=== PATIENT | male | born 1935 ===

== ENCOUNTER 2017-07-15 20:43 | Inpatient (IN) | payer MEDICAID ==
[2017-07-15] MEDS ORDERED: Albuterol 0.083% Inhal Sol (2.5 mg/3 mL) UD INH STA (21:11)
--- NOTE | 2017-07-15 21:13 | C.PDOC ---
Chief Complaint (Nursing): Chest Pain Past Medical History Vital Signs: Last Vital Signs Temp 98 F 07/15/17 20:57 Pulse 60 07/15/17 20:57 Resp 18 07/15/17 20:57 BP 142/62 07/15/17 20:57 Pulse Ox 94 L 07/15/17 20:57 - Medical History PMH: Arthritis, Dementia, HTN, Hypothyroidism - Social History Hx Alcohol Use: No Hx Substance Use: No ED Course And Treatment O2 Sat by Pulse Oximetry: 94 Disposition - Disposition
--- NOTE | 2017-07-15 21:16 | C.PDOC ---
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 Pain is described as pleuritic, not associated with exertion, or shortness of breath. 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 Upon arrival to ED, daughter reports patient is complaining of continuous pain since 09:00 this morning. All other Hx is limited due to dementia Chief Complaint (Nursing): Chest Pain History Per: Family History/Exam Limitations: clinical condition Onset/Duration Of Symptoms: Hrs Current Symptoms Are (Timing): Still Present Severity: Moderate Past Medical History Reviewed: Historical Data, Nursing Documentation, Vital Signs Vital Signs: Last Vital Signs Temp 97.9 F 07/15/17 23:15 Pulse 77 07/16/17 00:31 Resp 20 07/15/17 23:15 BP 140/66 07/16/17 00:31 Pulse Ox 98 07/15/17 23:15 - Medical History PMH: Arthritis, Dementia, HTN, Hypothyroidism Surgical History: No Surg Hx Family History: States: No Known Family Hx - Social History Hx Alcohol Use: No Hx Substance Use: No Review Of Systems Review Of Systems: ROS cannot be obtained secondary to pt's inabilty to answer questions. Constitutional: Negative for: Fever Cardiovascular: Positive for: Chest Pain Respiratory: Negative for: Cough, Shortness of Breath Physical Exam - Physical Exam Appears: Non-toxic, No Acute Distress Skin: Warm, Dry, No Rash Head: Normacephalic Eye(s): bilateral: PERRL Nose: Normal Oral Mucosa: Moist Lips: Normal Appearing Neck: Normal ROM Cardiovascular: Rhythm Regular, No Murmur Respiratory: Decreased Breath Sounds (diminished B/L air movement), No Accessory Muscle Use, Wheezing (diffuse, expiratory B/L) Gastrointestinal/Abdominal: Soft, No Tenderness Extremity: Normal ROM, No Deformity, No Swelling Neurological/Psych: Other (Alert and oriented to person and place) ED Course And Treatment - Laboratory Results Result Diagrams: 07/15/17 21:34 07/15/17 21:34 ECG: Interpreted By Me, Viewed By Me ECG Rhythm: Sinus Rhythm ECG Interpretation: No Acute Changes Interpretation Of ECG: Left anterior hemiblock and LVH with no acute ST/T wave changes or ectopy. Rate From EC O2 Sat by Pulse Oximetry: 94 (RA) Pulse Ox Interpretation: Abnormal Medical Decision Making Medical Decision Making: Impression Chest pain and asthma. Patients symptoms are likely non-cardiac, will do baseline workup treatment for asthma and re-evaluate. Plan: * EKG * BNP, CMP, Trop I * CBC, D-Dimer * Chest X-Ray * Albuterol, Solumedrol * Peak flow, nebulizer * Reassess and Disposition 2199: Patient states chest pain has now resolved, and he is breathing better. Re-examination shows residual end expiratory wheeze. 2215: Labs reviewed, patient with elevated BUN, BNP and D-Dimer. Patient presents with chest pain which is most likely pulmonary in etiology. Due to renal insufficiency of unknown duration, elevated BNP suggestive of CHF, elevated DDimer of unkown significance, plan for admission. Given renal insufficiency, patient might require VQ scan tomorrow. Case discussed with Dr. Norwood and patient to be admitted under him for chest pain, renal insufficiency. Disposition - Disposition Disposition: HOSPITALIZED Disposition Time: 22:20 Condition: STABLE - Clinical Impression Clinical Impression: Chest pain, Renal insufficiency - Scribe Statement The provider has reviewed the documentation as recorded by the Scribe (Mahnaz Davidson) All medical record entries made by the Scribe were at my direction and personally dictated by me. I have reviewed the chart and agree that the record accurately reflects my personal performance of the history, physical exam, medical decision making, and the department course for this patient. I have also personally directed, reviewed, and agree with the discharge instructions and disposition.
[2017-07-15] MEDS ORDERED: Albuterol 0.083% Inhal Sol (2.5 mg/3 mL) UD ONE (21:21)
[2017-07-15 21:38] LABS: BASO # 0.1 K/uL (0.0-0.2); BASO % 1.2 % (0.0-2.0); EOS # 1.4 K/uL (0.0-0.7); EOS % 14.8 % (0.0-4.0); HEMOGLOBIN 12.9 g/dL (12.0-18.0); LYMPH # 2.7 K/uL (1.0-4.3); LYMPH % 27.9 % (20.0-40.0); MEAN CELL VOLUME 99.1 fL (80.0-94.0); MEAN CORPUSCULAR HEMOGLOBIN 33.5 pg (27.0-31.0); MEAN CORPUSCULAR HGB CONC 33.8 g/dL (33.0-37.0); MEAN PLATELET VOLUME 9.8 fL (7.2-11.7); MONO # 0.8 K/uL (0.0-0.8); MONO % 8.1 % (0.0-10.0); NEUT # 4.6 K/uL (1.8-7.0); NRBC % 0.1 % (0.0-2.0); RBC 3.85 Mil/uL (4.40-5.90); RED CELL DISTRIBUTION WIDTH 14.6 % (11.5-14.5); WHITE BLOOD COUNT 9.6 K/uL (4.8-10.8)
[2017-07-15 21:50] LABS: ALB/GLOB RATIO 0.8 (1.0-2.1); ALBUMIN 3.7 g/dL (3.5-5.0); ALT/SGPT 32 U/L (21-72); AST/SGOT 37 U/L (17-59); BLOOD UREA NITROGEN 34 mg/dL (9-20); CALCIUM 8.7 mg/dl (8.6-10.4); GFR AFRICAN-AMERICAN 25; GFR NON-AFRICAN AMERICAN 21
[2017-07-15 22:02] LABS: B-TYPE NATRIURETIC PEPTIDE 1710 pg/mL (0-900)
[2017-07-16] MEDS: Albuterol-Ipratrop 3 mg / 0.5 (3 ml) UD INH SCH ×4 (01:08→19:38)
[2017-07-16] MEDS ORDERED: Naproxen 275 mg Tab PO PRN (01:36)
[2017-07-16] MEDS: Levothyroxine 25 MCG TAB PO SCH (05:44)
[2017-07-16] MEDS: MethylPREDNISolone 40 mg Vial IV SCH ×3 (05:44→21:56)
--- NOTE | 2017-07-16 07:56 | RAD ---
Chest x-ray single frontal view History: Shortness breath. Comparison: None available Findings: Mild to moderate venous congestion. Patchy increased marking noted at the left lung base. Top normal heart size. Degenerative changes in the spine and shoulders. Impression: Mild to moderate venous congestion. Patchy increased marking noted at the left lung base. Top normal heart size.
[2017-07-16 08:04] LABS: CK-MB 0.58 ng/mL (0.0-3.38); TROPONIN I 0.015 ng/mL (0.00-0.120)
[2017-07-16] MEDS: Fluticasone-Salmeterol 250-50mcg Diskus INH SCH ×3 (08:04→19:38)
[2017-07-16] MEDS: Pantoprazole 40 mg EC Tab PO SCH (10:33)
--- NOTE | 2017-07-16 12:10 | NM ---
COMPARISON: 07/16/2017 TECHNIQUE: 13.5 MCi technetium 99-m Xe-133 Gas. 3.8 MCI technetium 99-m MAA administered intravenously. FINDINGS: VENTILATION COMPONENT: Normal. PERFUSION COMPONENT: Normal. IMPRESSION: Normal ventilation perfusion scan for pulmonary embolism.
[2017-07-16 13:00] LABS: SQUAMOUS EPITHIAL < 1 /hpf (0-5); URINE BILIRUBIN NEGATIVE (NEGATIVE); URINE BLOOD NEGATIVE (NEGATIVE); URINE CLARITY Clear (Clear); URINE COLOR Yellow (YELLOW); URINE GLUCOSE (UA) NORMAL (Normal); URINE LEUKOCYTE ESTERASE NEG Leu/uL (Negative); URINE PROTEIN 1+ mg/dL (NEGATIVE); URINE UROBILINOGEN NORMAL mg/dL (0.2-1.0)
[2017-07-16 14:14] LABS: CREATININE, RANDOM URINE 269.1 mg/dL
[2017-07-16 14:18] LABS: CK-MB 0.73 ng/mL (0.0-3.38)
--- NOTE | 2017-07-16 15:24 | US ---
PROCEDURE: Ultrasound of the Kidneys HISTORY: CKD COMPARISON: None available. TECHNIQUE: Grayscale imaging was performed. FINDINGS: RIGHT KIDNEY: Measures: 7.9 cm. Small in size with diffuse increased cortical echogenicity and cortical thinning. No stone, solid mass lesion or hydronephrosis visualized. There are two small cysts in the interpolar region, the larger measures 10 mm. LEFT KIDNEY: Measures: 9.9 cm. Normal in size, contour and echogenicity. No stone, solid mass lesion or hydronephrosis visualized. There is a 10 mm simple cyst in the upper pole. OTHER FINDINGS: None. IMPRESSION: 1. Small atrophic right kidney with evidence of renal parenchymal disease. Two simple cysts in the interpolar region of the right kidney, the larger measures 10 mm. 2. 10 mm simple cyst in the upper pole of the left kidney. 3. No hydronephrosis or nephrolithiasis.
--- NOTE | 2017-07-16 15:25 | US ---
PROCEDURE: Ultrasound of the Bladder HISTORY: plesae check PVR COMPARISON: None available. TECHNIQUE: Sonographic evaluation of the bladder was performed. FINDINGS: The urinary bladder is partially distended and grossly normal in appearance without wall thickening or intraluminal debris. No calculus or gross mass lesion. No free fluid in pelvis. Bilateral ureteral jets are not visualized on color flow imaging. Prevoid Volume: 126 cc. Post void residual: 42 cc. IMPRESSION: Moderate postvoid residual.
--- NOTE | 2017-07-16 17:09 | CP.PCM.CON ---
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 Hypertension control with meds as ordered. Patient on ACEI/ARB as losartan Monitor Input/Output, daily weights and renal function with basic metabolic panel agree with diuretics pt and family advised to abstain from nsaids including meloxicam start flomax 0.4 mg/day Check urine analysis, spot protein/creatinine and albumin/creatinine ratio, renal sonogram. . Check for 25-OH vitamin D, iPTH, phosphorus level Dose meds/antibiotics for reduced GFR. Avoid fleets enema/magnesium based laxatives. Avoid nephrotoxins/NSAIDs/ iodinated contrast (unless needed emergently) Glycemic control Further work up/management as per primary team Thanks for allowing me to participate in care of your patient. Will follow patient with you. Please call if any Qs Dr Yuan Platt Office: [phone] Chief Complaint; SOB better HPI: Pt is a 81 M with hx of hypertension (years) , CKD as known to grand daughters with low kidney function and 1 kidney smaller presented with complaints of chest pain and SOB, being managed for CHF. also seen for CHESTER hence renal consulted Denies OTC/herbal meds but admits to NSAIDs as meloxicam No recent iodinated contrast exposure. No obvious episodes of low BP. ROS: Cardiovascular: No chest pain now. Pulmonary: improved shortness of breath Gastrointestinal: denies abdominal pain No nausea. No vomiting. Genitourinary: No pain while urinating. Denies blood in urine. does reports to need to strain when urinating All other negative Physical Examination: General Appearance: Comfortable, in no acute respiratory distress, co-operative . Vitals reviewed and noted as below Head; Atraumatic, normocephalic ENT: no ulcers no thrush. Tongue is midline. Oropharynx: no rash or ulcers. EYES: Pupils are equal, round and reactive to light accommodation. Eye muscles and extraocular movement intact. Sclera is anicteric. Neck; supple no lymphadenopathy, no thyromegaly or bruit Lungs: Normal respiratory rate/effort. Breath sounds bilateral equal and has basal crackles Heart: Normal rate. s1s2 normal. No rub or gallop. Extremities: no edema. No varicose veins Neurological: Patient is alert, awake and oriented to person, place and time. No focal deficit. Strength bilateral appropriate and equal Skin: Warm and dry. Normal turgor. No rash. Palpitation: Normal elasticity for age Abdomen: Abdomen is soft. Bowel sounds +. There is no abdominal tenderness, no guarding/rigidity no organomegaly Psych: limited insight and normal affect/mood MSK: no joint tenderness or swelling. Digits and nails normal, no deformity : kidney or bladder not palpable Labs/imaging reviewed. Past medical history, past surgical history, family history, social history, allergy reviewed and noted as below Family hx: no hx of CKD. Rest non-contributory Past Patient History - Past Social History Smoking Status: Never Smoked - CARDIAC Hx Hypertension: Yes - NEUROLOGICAL Hx Dementia: Yes - ENDOCRINE/METABOLIC Hx Hypothyroidism: Yes - MUSCULOSKELETAL/RHEUMATOLOGICAL Hx Arthritis: Yes - PSYCHIATRIC Hx Substance Use: No - SURGICAL HISTORY Hx Surgeries: No Meds Allergies/Adverse Reactions: Allergies Allergy/AdvReac Type Severity Reaction Status Date / Time No Known Allergies Allergy Verified 07/15/17 21:03 - Medications Medications: Current Medications Albuterol/Ipratropium (Duoneb 3 Mg/0.5 Mg (3 Ml) Ud) 3 ml INH RQ6 [facility] Last Admin: 07/16/17 13:11 Dose: 3 ml Allopurinol (Zyloprim) 100 mg PO DAILY [facility] Last Admin: 07/16/17 10:32 Dose: 100 mg Furosemide (Lasix) 20 mg IVP DAILY [facility] Last Admin: 07/16/17 10:33 Dose: 20 mg Heparin Sodium (Porcine) (Heparin) 5,000 units SC Q8 [facility] Last Admin: 07/16/17 13:42 Dose: 5,000 units Hydralazine HCl (Apresoline) 50 mg PO TID [facility] Last Admin: 07/16/17 13:42 Dose: 50 mg Levothyroxine Sodium (Synthroid) 25 mcg PO DAILY@0630 [facility] Last Admin: 07/16/17 05:44 Dose: 25 mcg Losartan Potassium (Cozaar) 25 mg PO DAILY [facility] Last Admin: 04/23/18 10:32 Dose: 25 mg Methylprednisolone (Solu-Medrol) 40 mg IV Q8 [facility] Last Admin: 07/16/17 13:42 Dose: 40 mg Metoprolol Tartrate (Lopressor) 50 mg PO Q12H [facility] Last Admin: 07/16/17 10:33 Dose: 50 mg Pantoprazole Sodium (Protonix Ec Tab) 40 mg PO DAILY [facility] Last Admin: 07/16/17 10:33 Dose: 40 mg Pneumococcal Polyvalent Vaccine (Pneumovax 23 Vaccine) 0.5 ml IM .ONCE ONE Stop: 07/17/17 14:01 Fluticasone/Salmeterol (Advair Diskus 250/50) 1 puff INH RQ12 [facility] Last Admin: 07/16/17 08:04 Dose: Not Given Results - Vital Signs Recent Vital Signs: Last Vital Signs Temp 97.2 F L 07/16/17 15:46 Pulse 84 07/16/17 15:46 Resp 20 07/16/17 15:46 BP 171/63 H 07/16/17 15:46 Pulse Ox 97 07/16/17 15:46 - Labs Result Diagrams: 07/15/17 21:34 07/15/17 21:34 Labs: Laboratory Results - last 24 hr 07/15/17 07/15/17 07/15/17 21:34 21:34 21:34 WBC 9.6 RBC 3.85 L Hgb 12.9 Hct 38.2 MCV 99.1 H MCH 33.5 H MCHC 33.8 RDW 14.6 H Plt Count 227 MPV 9.8 Neut % (Auto) 48.0 L Lymph % (Auto) 27.9 Mccone % (Auto) 8.1 Eos % (Auto) 14.8 H Baso % (Auto) 1.2 Neut # (Auto) 4.6 Lymph # (Auto) 2.7 Mccone # (Auto) 0.8 Eos # (Auto) 1.4 H Baso # (Auto) 0.1 D-Dimer, Quantitative 863 H Sodium 136 Potassium 4.7 Chloride 99 Carbon Dioxide 25 Anion Gap 16 BUN 34 H Creatinine 2.9 H Est GFR ( Amer) 25 Est GFR (Non-Af Amer) 21 Random Glucose 98 Calcium 8.7 Total Bilirubin 0.9 AST 37 ALT 32 Alkaline Phosphatase 198 H Total Creatine Kinase CK-MB (Mass) Troponin I < 0.0120 NT-Pro-B Natriuret Pep 1710 H Total Protein 8.2 Albumin 3.7 Globulin 4.4 H Albumin/Globulin Ratio 0.8 L Urine Color Urine Clarity Urine pH Ur Specific [place] Urine Protein Urine Glucose (UA) Urine Ketones Urine Blood Urine Nitrate Urine Bilirubin Urine Urobilinogen Ur Leukocyte Esterase Urine WBC (Auto) Urine RBC (Auto) Ur Squamous Epith Cells Ur Random Creatinine U Random Total Protein Urine Microalbumin 07/16/17 07/16/17 07/16/17 06:40 12:48 13:36 WBC RBC Hgb Hct MCV MCH MCHC RDW Plt Count MPV Neut % (Auto) Lymph % (Auto) Mccone % (Auto) Eos % (Auto) Baso % (Auto) Neut # (Auto) Lymph # (Auto) Mccone # (Auto) Eos # (Auto) Baso # (Auto) D-Dimer, Quantitative Sodium Potassium Chloride Carbon Dioxide Anion Gap BUN Creatinine Est GFR ( Amer) Est GFR (Non-Af Amer) Random Glucose Calcium Total Bilirubin AST ALT Alkaline Phosphatase Total Creatine Kinase 63 CK-MB (Mass) 0.58 Troponin I 0.0150 NT-Pro-B Natriuret Pep Total Protein Albumin Globulin Albumin/Globulin Ratio Urine Color Yellow Urine Clarity Clear Urine pH 5.0 Ur Specific [place] 1.023 Urine Protein 1+ H Urine Glucose (UA) Normal Urine Ketones Negative Urine Blood Negative Urine Nitrate Negative Urine Bilirubin Negative Urine Urobilinogen Normal Ur Leukocyte Esterase Neg Urine WBC (Auto) 1 Urine RBC (Auto) 1 Ur Squamous Epith Cells < 1 Ur Random Creatinine 269.1 U Random Total Protein 43.0 H Urine Microalbumin 07/16/17 07/16/17 13:36 13:43 WBC RBC Hgb Hct MCV MCH MCHC RDW Plt Count MPV Neut % (Auto) Lymph % (Auto) Mccone % (Auto) Eos % (Auto) Baso % (Auto) Neut # (Auto) Lymph # (Auto) Mccone # (Auto) Eos # (Auto) Baso # (Auto) D-Dimer, Quantitative Sodium Potassium Chloride Carbon Dioxide Anion Gap BUN Creatinine Est GFR ( Amer) Est GFR (Non-Af Amer) Random Glucose Calcium Total Bilirubin AST ALT Alkaline Phosphatase Total Creatine Kinase 62 CK-MB (Mass) 0.73 Troponin I < 0.0120 NT-Pro-B Natriuret Pep Total Protein Albumin Globulin Albumin/Globulin Ratio Urine Color Urine Clarity Urine pH Ur Specific [place] Urine Protein Urine Glucose (UA) Urine Ketones Urine Blood Urine Nitrate Urine Bilirubin Urine Urobilinogen Ur Leukocyte Esterase Urine WBC (Auto) Urine RBC (Auto) Ur Squamous Epith Cells Ur Random Creatinine U Random Total Protein Urine Microalbumin 179.2 H
--- NOTE | 2017-07-16 18:17 | CARD ---
APPROVED REPORT EKG Measurement Heart [id number] <Conclusion> Normal sinus rhythm Possible Left atrial enlargement Left anterior fascicular block Left ventricular hypertrophy Abnormal ECG
--- NOTE | 2017-07-16 18:35 | CP.PCM.HP ---
Past Patient History - Past Social History Smoking Status: Never Smoked - CARDIAC Hx Hypertension: Yes - NEUROLOGICAL Hx Dementia: Yes - ENDOCRINE/METABOLIC Hx Hypothyroidism: Yes - MUSCULOSKELETAL/RHEUMATOLOGICAL Hx Arthritis: Yes - PSYCHIATRIC Hx Substance Use: No - SURGICAL HISTORY Hx Surgeries: No Meds Allergies/Adverse Reactions: Allergies Allergy/AdvReac Type Severity Reaction Status Date / Time No Known Allergies Allergy Verified 07/15/17 21:03 Results - Vital Signs Recent Vital Signs: Last Vital Signs Temp 97.2 F L 07/16/17 15:46 Pulse 84 07/16/17 15:46 Resp 20 07/16/17 15:46 BP 171/63 H 07/16/17 15:46 Pulse Ox 97 07/16/17 15:46 - Labs Result Diagrams: 07/15/17 21:34 07/15/17 21:34 Labs: Laboratory Results - last 24 hr 07/15/17 07/15/17 07/15/17 21:34 21:34 21:34 WBC 9.6 RBC 3.85 L Hgb 12.9 Hct 38.2 MCV 99.1 H MCH 33.5 H MCHC 33.8 RDW 14.6 H Plt Count 227 MPV 9.8 Neut % (Auto) 48.0 L Lymph % (Auto) 27.9 Scott % (Auto) 8.1 Eos % (Auto) 14.8 H Baso % (Auto) 1.2 Neut # (Auto) 4.6 Lymph # (Auto) 2.7 Scott # (Auto) 0.8 Eos # (Auto) 1.4 H Baso # (Auto) 0.1 D-Dimer, Quantitative 863 H Sodium 136 Potassium 4.7 Chloride 99 Carbon Dioxide 25 Anion Gap 16 BUN 34 H Creatinine 2.9 H Est GFR ( Amer) 25 Est GFR (Non-Af Amer) 21 Random Glucose 98 Calcium 8.7 Total Bilirubin 0.9 AST 37 ALT 32 Alkaline Phosphatase 198 H Total Creatine Kinase CK-MB (Mass) Troponin I < 0.0120 NT-Pro-B Natriuret Pep 1710 H Total Protein 8.2 Albumin 3.7 Globulin 4.4 H Albumin/Globulin Ratio 0.8 L Urine Color Urine Clarity Urine pH Ur Specific [place] Urine Protein Urine Glucose (UA) Urine Ketones Urine Blood Urine Nitrate Urine Bilirubin Urine Urobilinogen Ur Leukocyte Esterase Urine WBC (Auto) Urine RBC (Auto) Ur Squamous Epith Cells Ur Random Creatinine U Random Total Protein Urine Microalbumin 07/16/17 07/16/17 07/16/17 06:40 12:48 13:36 WBC RBC Hgb Hct MCV MCH MCHC RDW Plt Count MPV Neut % (Auto) Lymph % (Auto) Scott % (Auto) Eos % (Auto) Baso % (Auto) Neut # (Auto) Lymph # (Auto) Scott # (Auto) Eos # (Auto) Baso # (Auto) D-Dimer, Quantitative Sodium Potassium Chloride Carbon Dioxide Anion Gap BUN Creatinine Est GFR ( Amer) Est GFR (Non-Af Amer) Random Glucose Calcium Total Bilirubin AST ALT Alkaline Phosphatase Total Creatine Kinase 63 CK-MB (Mass) 0.58 Troponin I 0.0150 NT-Pro-B Natriuret Pep Total Protein Albumin Globulin Albumin/Globulin Ratio Urine Color Yellow Urine Clarity Clear Urine pH 5.0 Ur Specific [place] 1.023 Urine Protein 1+ H Urine Glucose (UA) Normal Urine Ketones Negative Urine Blood Negative Urine Nitrate Negative Urine Bilirubin Negative Urine Urobilinogen Normal Ur Leukocyte Esterase Neg Urine WBC (Auto) 1 Urine RBC (Auto) 1 Ur Squamous Epith Cells < 1 Ur Random Creatinine 269.1 U Random Total Protein 43.0 H Urine Microalbumin 07/16/17 07/16/17 13:36 13:43 WBC RBC Hgb Hct MCV MCH MCHC RDW Plt Count MPV Neut % (Auto) Lymph % (Auto) Scott % (Auto) Eos % (Auto) Baso % (Auto) Neut # (Auto) Lymph # (Auto) Scott # (Auto) Eos # (Auto) Baso # (Auto) D-Dimer, Quantitative Sodium Potassium Chloride Carbon Dioxide Anion Gap BUN Creatinine Est GFR ( Amer) Est GFR (Non-Af Amer) Random Glucose Calcium Total Bilirubin AST ALT Alkaline Phosphatase Total Creatine Kinase 62 CK-MB (Mass) 0.73 Troponin I < 0.0120 NT-Pro-B Natriuret Pep Total Protein Albumin Globulin Albumin/Globulin Ratio Urine Color Urine Clarity Urine pH Ur Specific [place] Urine Protein Urine Glucose (UA) Urine Ketones Urine Blood Urine Nitrate Urine Bilirubin Urine Urobilinogen Ur Leukocyte Esterase Urine WBC (Auto) Urine RBC (Auto) Ur Squamous Epith Cells Ur Random Creatinine U Random Total Protein Urine Microalbumin 179.2 H
[2017-07-16 21:48] LABS: CK-MB 1.12 ng/mL (0.0-3.38)
[2017-07-17] MEDS: Albuterol-Ipratrop 3 mg / 0.5 (3 ml) UD INH SCH ×4 (01:13→19:48)
[2017-07-17] MEDS: MethylPREDNISolone 40 mg Vial IV SCH ×3 (06:35→21:13)
[2017-07-17] MEDS: Levothyroxine 25 MCG TAB PO SCH (06:35)
[2017-07-17 07:10] LABS: BASO % 0.1 % (0.0-2.0); HEMOGLOBIN 12.5 g/dL (12.0-18.0); LYMPH # 1.1 K/uL (1.0-4.3); LYMPH % 6.7 % (20.0-40.0); MEAN CELL VOLUME 98.6 fL (80.0-94.0); MEAN CORPUSCULAR HEMOGLOBIN 33.1 pg (27.0-31.0); MEAN CORPUSCULAR HGB CONC 33.5 g/dL (33.0-37.0); MEAN PLATELET VOLUME 9.7 fL (7.2-11.7); MONO # 0.4 K/uL (0.0-0.8); MONO % 2.3 % (0.0-10.0); NEUT # 14.6 K/uL (1.8-7.0); NEUT % 90.9 % (50.0-75.0); PLATELET COUNT 262 K/uL (130-400); RBC 3.78 Mil/uL (4.40-5.90); RED CELL DISTRIBUTION WIDTH 14.4 % (11.5-14.5); WHITE BLOOD COUNT 16.1 K/uL (4.8-10.8)
[2017-07-17] MEDS: Fluticasone-Salmeterol 250-50mcg Diskus INH SCH ×2 (07:21→19:48)
[2017-07-17 07:31] LABS: CALCIUM 8.4 mg/dl (8.6-10.4); URIC ACID 7.9 mg/dL (3.5-8.5)
[2017-07-17 08:56] LABS: BANDS 1 % (0-2); LYMPHOCYTE 9 % (20-40); MONOCYTE 1 % (0-10); NEUTROPHIL 89 % (50-75); PLATELET ESTIMATE NORMAL (NORMAL); TOTAL CELLS COUNTED 100
[2017-07-17 08:57] LABS: ANISOCYTOSIS SLIGHT; HYPOCHROMIC SLIGHT; POIKILOCYTOSIS SLIGHT
[2017-07-17 08:58] LABS: LARGE PLATELETS PRESENT; TARGET CELLS SLIGHT
[2017-07-17] MEDS: Pantoprazole 40 mg EC Tab PO SCH (10:10)
[2017-07-17] MEDS ORDERED: Ergocalciferol 50,000 Intl Units Cap PO SCH (11:00)
[2017-07-17] MEDS ORDERED: Pneumococcal 23-Valent Vaccine IM ONE (14:00)
--- NOTE | 2017-07-17 17:07 | CP.PCM.PN ---
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 Hypertension control with meds as ordered. Patient on ACEI/ARB as losartan, will hold due to CHESTER Monitor Input/Output, daily weights and renal function with basic metabolic panel diuretics changed to oral pt and family advised to abstain from nsaids including meloxicam start flomax 0.4 mg/day started weekly Vit D supplements x 8 weeks Dose meds/antibiotics for reduced GFR. Avoid fleets enema/magnesium based laxatives. Avoid nephrotoxins/NSAIDs/ iodinated contrast (unless needed emergently) Glycemic control Further work up/management as per primary team Thanks for allowing me to participate in care of your patient. Will follow patient with you. Please call if any Qs. d/w team Dr Yuan Platt Office: [phone] Chief Complaint; SOB better HPI: Pt is a 81 M with hx of hypertension (years) , CKD as known to grand daughters with low kidney function and 1 kidney smaller presented with complaints of chest pain and SOB, being managed for CHF. also seen for CHESTER hence renal consulted Denies OTC/herbal meds but admits to NSAIDs as meloxicam No recent iodinated contrast exposure. No obvious episodes of low BP. ROS: Cardiovascular: No chest pain now. Pulmonary: denies shortness of breath Gastrointestinal: denies abdominal pain No nausea. No vomiting. Genitourinary: No pain while urinating. Denies blood in urine. does reports to need to strain when urinating All other negative Physical Examination: General Appearance: Comfortable, in no acute respiratory distress, co-operative . Vitals reviewed and noted as below Head; Atraumatic, normocephalic ENT: no ulcers no thrush. Tongue is midline. Oropharynx: no rash or ulcers. EYES: Pupils are equal, round and reactive to light accommodation. Eye muscles and extraocular movement intact. Sclera is anicteric. Neck; supple no lymphadenopathy, no thyromegaly or bruit Lungs: Normal respiratory rate/effort. Breath sounds bilateral equal and clear now Heart: Normal rate. s1s2 normal. No rub or gallop. Extremities: no edema. No varicose veins Neurological: Patient is alert, awake and oriented to person, place and time. No focal deficit. Strength bilateral appropriate and equal Skin: Warm and dry. Normal turgor. No rash. Palpitation: Normal elasticity for age Abdomen: Abdomen is soft. Bowel sounds +. There is no abdominal tenderness, no guarding/rigidity no organomegaly Psych: limited insight and normal affect/mood MSK: no joint tenderness or swelling. Digits and nails normal, no deformity : kidney or bladder not palpable Labs/imaging reviewed. Past medical history, past surgical history, family history, social history, allergy reviewed and noted as below Family hx: no hx of CKD. Rest non-contributory Objective - Vital Signs/Intake and Output Vital Signs (last 24 hours): Temp Pulse Resp BP Pulse Ox 97.5 F L 90 20 152/64 H 96 07/17/17 15:00 07/17/17 15:47 07/17/17 15:00 07/17/17 15:00 07/17/17 15:00 Intake and Output: 07/17/17 07/17/17 06:59 18:59 Intake Total 440 Output Total 300 Balance 140 - Medications Medications: Current Medications Albuterol/Ipratropium (Duoneb 3 Mg/0.5 Mg (3 Ml) Ud) 3 ml INH RQ6 [facility] Last Admin: 07/17/17 13:05 Dose: 3 ml Allopurinol (Zyloprim) 100 mg PO DAILY [facility] Last Admin: 07/17/17 10:10 Dose: 100 mg Ergocalciferol (Drisdol 50,000 Intl Units Cap) 1 cap PO Q7D [facility] Last Admin: 07/17/17 13:46 Dose: 1 cap Furosemide (Lasix) 20 mg PO DAILY [facility] Heparin Sodium (Porcine) (Heparin) 5,000 units SC Q8 [facility] Last Admin: 07/17/17 13:46 Dose: 5,000 units Hydralazine HCl (Apresoline) 50 mg PO TID [facility] Last Admin: 07/17/17 13:46 Dose: 50 mg Levothyroxine Sodium (Synthroid) 25 mcg PO DAILY@0630 [facility] Last Admin: 07/17/17 06:35 Dose: 25 mcg Methylprednisolone (Solu-Medrol) 40 mg IV Q8 [facility] Last Admin: 07/17/17 13:46 Dose: 40 mg Metoprolol Tartrate (Lopressor) 50 mg PO Q12H [facility] Last Admin: 07/17/17 10:10 Dose: 50 mg Pantoprazole Sodium (Protonix Ec Tab) 40 mg PO DAILY [facility] Last Admin: 07/17/17 10:10 Dose: 40 mg Fluticasone/Salmeterol (Advair Diskus 250/50) 1 puff INH RQ12 [facility] Last Admin: 07/17/17 07:21 Dose: 1 puff Tamsulosin HCl (Flomax) 0.4 mg PO DAILY [facility] Last Admin: 07/17/17 10:10 Dose: 0.4 mg - Labs Labs: 07/17/17 07:00 07/17/17 07:00
--- NOTE | 2017-07-17 20:28 | CP.PCM.PN ---
Subjective - Date & Time of Evaluation Date of Evaluation: 07/17/17 Time of Evaluation: 20:28 Objective - Vital Signs/Intake and Output Vital Signs (last 24 hours): Temp Pulse Resp BP Pulse Ox 97.5 F L 90 20 152/64 H 96 07/17/17 15:00 07/17/17 15:47 07/17/17 15:00 07/17/17 15:00 07/17/17 15:00 - Medications Medications: Current Medications Albuterol/Ipratropium (Duoneb 3 Mg/0.5 Mg (3 Ml) Ud) 3 ml INH RQ6 [facility] Last Admin: 07/17/17 19:48 Dose: 3 ml Allopurinol (Zyloprim) 100 mg PO DAILY [facility] Last Admin: 07/17/17 10:10 Dose: 100 mg Ergocalciferol (Drisdol 50,000 Intl Units Cap) 1 cap PO Q7D [facility] Last Admin: 07/17/17 13:46 Dose: 1 cap Furosemide (Lasix) 20 mg PO DAILY [facility] Heparin Sodium (Porcine) (Heparin) 5,000 units SC Q8 [facility] Last Admin: 07/17/17 13:46 Dose: 5,000 units Hydralazine HCl (Apresoline) 50 mg PO TID [facility] Last Admin: 07/17/17 17:17 Dose: 50 mg Levothyroxine Sodium (Synthroid) 25 mcg PO DAILY@0630 [facility] Last Admin: 07/17/17 06:35 Dose: 25 mcg Methylprednisolone (Solu-Medrol) 40 mg IV Q8 [facility] Last Admin: 07/17/17 13:46 Dose: 40 mg Metoprolol Tartrate (Lopressor) 50 mg PO Q12H [facility] Last Admin: 07/17/17 10:10 Dose: 50 mg Pantoprazole Sodium (Protonix Ec Tab) 40 mg PO DAILY [facility] Last Admin: 07/17/17 10:10 Dose: 40 mg Fluticasone/Salmeterol (Advair Diskus 250/50) 1 puff INH RQ12 [facility] Last Admin: 07/17/17 19:48 Dose: 1 puff Tamsulosin HCl (Flomax) 0.4 mg PO DAILY [facility] Last Admin: 07/17/17 10:10 Dose: 0.4 mg - Labs Labs: 07/17/17 07:00 07/17/17 07:00
--- NOTE | 2017-07-17 20:29 | CP.PCM.CON ---
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 Pain is described as pleuritic, not associated with exertion, or shortness of breath. As per daughter, patient was seen by his optical dispenser six days ago, and started on different medications due to blood pressure, no additional intervention was initiated. Upon arrival to ED, daughter reports patient is complaining of continuous pain since 09:00 this morning of the admission. All other Hx is limited due to dementia Chief Complaint (Nursing): Chest Pain History Per: Family - Medical History PMH: Arthritis, Dementia, HTN, Hypothyroidism Surgical History: No Surg Hx Family History: States: No Known Family Hx - Social History Hx Alcohol Use: No Hx Substance Use: No Review Of Systems Review Of Systems: ROS cannot be obtained secondary to pt's inabilty to answer questions. Constitutional: Negative for: Fever Cardiovascular: Positive for: Chest Pain Respiratory: Negative for: Cough, Shortness of Breath Physical Exam - Physical Exam Appears: Non-toxic, No Acute Distress Skin: Warm, Dry, No Rash Head: Normacephalic Eye(s): bilateral: PERRL Nose: Normal Oral Mucosa: Moist Lips: Normal Appearing Neck: Normal ROM Cardiovascular: Rhythm Regular, No Murmur Respiratory: Decreased Breath Sounds (diminished B/L air movement), No Accessory Muscle Use, Wheezing (diffuse, expiratory B/L) Gastrointestinal/Abdominal: Soft, No Tenderness Extremity: Normal ROM, No Deformity, No Swelling Neurological/Psych: Other (Alert and oriented to person and place) Past Patient History - Past Social History Smoking Status: Never Smoked - CARDIAC Hx Hypertension: Yes - NEUROLOGICAL Hx Dementia: Yes - ENDOCRINE/METABOLIC Hx Hypothyroidism: Yes - MUSCULOSKELETAL/RHEUMATOLOGICAL Hx Arthritis: Yes - PSYCHIATRIC Hx Substance Use: No - SURGICAL HISTORY Hx Surgeries: No Meds Allergies/Adverse Reactions: Allergies Allergy/AdvReac Type Severity Reaction Status Date / Time No Known Allergies Allergy Verified 07/15/17 21:03 - Medications Medications: Current Medications Albuterol/Ipratropium (Duoneb 3 Mg/0.5 Mg (3 Ml) Ud) 3 ml INH RQ6 [facility] Last Admin: 07/17/17 19:48 Dose: 3 ml Allopurinol (Zyloprim) 100 mg PO DAILY [facility] Last Admin: 07/17/17 10:10 Dose: 100 mg Ergocalciferol (Drisdol 50,000 Intl Units Cap) 1 cap PO Q7D [facility] Last Admin: 07/17/17 13:46 Dose: 1 cap Furosemide (Lasix) 20 mg PO DAILY [facility] Heparin Sodium (Porcine) (Heparin) 5,000 units SC Q8 [facility] Last Admin: 07/17/17 13:46 Dose: 5,000 units Hydralazine HCl (Apresoline) 50 mg PO TID [facility] Last Admin: 07/17/17 17:17 Dose: 50 mg Levothyroxine Sodium (Synthroid) 25 mcg PO DAILY@0630 [facility] Last Admin: 07/17/17 06:35 Dose: 25 mcg Methylprednisolone (Solu-Medrol) 40 mg IV Q8 [facility] Last Admin: 07/17/17 13:46 Dose: 40 mg Metoprolol Tartrate (Lopressor) 50 mg PO Q12H [facility] Last Admin: 07/17/17 10:10 Dose: 50 mg Pantoprazole Sodium (Protonix Ec Tab) 40 mg PO DAILY [facility] Last Admin: 07/17/17 10:10 Dose: 40 mg Fluticasone/Salmeterol (Advair Diskus 250/50) 1 puff INH RQ12 [facility] Last Admin: 07/17/17 19:48 Dose: 1 puff Tamsulosin HCl (Flomax) 0.4 mg PO DAILY [facility] Last Admin: 07/17/17 10:10 Dose: 0.4 mg Results - Vital Signs Recent Vital Signs: Last Vital Signs Temp 97.5 F L 07/17/17 15:00 Pulse 90 07/17/17 15:47 Resp 20 07/17/17 15:00 BP 152/64 H 07/17/17 15:00 Pulse Ox 96 07/17/17 15:00 - Labs Result Diagrams: 07/17/17 07:00 07/17/17 07:00 Labs: Laboratory Results - last 24 hr 07/16/17 07/17/17 07/17/17 21:16 07:00 07:00 WBC 16.1 H D RBC 3.78 L Hgb 12.5 Hct 37.3 MCV 98.6 H MCH 33.1 H MCHC 33.5 RDW 14.4 Plt Count 262 MPV 9.7 Neut % (Auto) 90.9 H Lymph % (Auto) 6.7 L [place] % (Auto) 2.3 Eos % (Auto) 0.0 Baso % (Auto) 0.1 Neut # (Auto) 14.6 H Lymph # (Auto) 1.1 [place] # (Auto) 0.4 Eos # (Auto) 0.0 Baso # (Auto) 0.0 Neutrophils % (Manual) 89 H Band Neutrophils % 1 Lymphocytes % (Manual) 9 L Monocytes % (Manual) 1 Platelet Estimate Normal Large Platelets Present Hypochromasia (manual) Slight Poikilocytosis (manual Slight Anisocytosis (manual) Slight Target Cells Slight Sodium 136 Potassium 4.8 Chloride 100 Carbon Dioxide 20 L Anion Gap 20 BUN 55 H Creatinine 3.6 H Est GFR ( Amer) 20 Est GFR (Non-Af Amer) 16 Random Glucose 159 H Uric Acid 7.9 Calcium 8.4 L Phosphorus 3.8 Total Creatine Kinase 66 CK-MB (Mass) 1.12 Troponin I < 0.0120 25-OH Vitamin D Total 07/17/17 07:00 WBC RBC Hgb Hct MCV MCH MCHC RDW Plt Count MPV Neut % (Auto) Lymph % (Auto) [place] % (Auto) Eos % (Auto) Baso % (Auto) Neut # (Auto) Lymph # (Auto) [place] # (Auto) Eos # (Auto) Baso # (Auto) Neutrophils % (Manual) Band Neutrophils % Lymphocytes % (Manual) Monocytes % (Manual) Platelet Estimate Large Platelets Hypochromasia (manual) Poikilocytosis (manual Anisocytosis (manual) Target Cells Sodium Potassium Chloride Carbon Dioxide Anion Gap BUN Creatinine Est GFR ( Amer) Est GFR (Non-Af Amer) Random Glucose Uric Acid Calcium Phosphorus Total Creatine Kinase CK-MB (Mass) Troponin I 25-OH Vitamin D Total 17.6 L Assessment & Plan - Assessment and Plan (Free Text) Assessment: Non Cardiac chest pain Trops negative Normal EF by ECHO HTN Hypothyroidism Dementia Medical management
--- NOTE | 2017-07-17 21:22 | CARD ---
APPROVED REPORT EXAM: Two-dimensional and M-mode echocardiogram with Doppler and color Doppler. Other Information Quality : GoodRhythm : INDICATION Chest Pain RISK FACTORS Hypertension 2D DIMENSIONS IVSd1.3 (0.7-1.1cm)LVDd5.0 (3.9-5.9cm) PWd1.0 (0.7-1.1cm)LVDs2.4 (2.5-4.0cm) FS (%) 51.4 %LVEF (%)82.5 (>50%) M-Mode DIMENSIONS RVDd1.42 (2.1-3.2cm)Left Atrium (MM)4.28 (2.5-4.0cm) IVSd1.15 (0.7-1.1cm)Aortic Root2.76 (2.2-3.7cm) LVDd5.34 (4.0-5.6cm)Aortic Cusp Exc.2.07 (1.5-2.0cm) PWd1.15 (0.7-1.1cm)FS (%) 51 % LVDs2.64 (2.0-3.8cm)LVEF (%)82 (>50%) Aortic Valve AI P 1/2 [id number] Mitral Valve MV E Hdzktztg86.8cm/sMV A Tmtxqjlm662.8cm/sE/A ratio0.7 TDI E/Lateral E'0.0E/Medial E'0.0 Tricuspid Valve TR Peak Kkpvysfj569dp/sTR Peak Gr.[id number] LEFT VENTRICLE The left ventricle is normal size. There is mild concentric left ventricular hypertrophy. The left ventricular function is normal. The left ventricular ejection fraction is within the normal range. 66% No regional wall motion abnormalities noted. The left ventricular diastolic function is normal. No left ventricle thrombus noted on this study. There is no ventricular septal defect visualized. There is no left ventricular aneurysm. There is no mass noted in the left ventricle. RIGHT VENTRICLE The right ventricle is normal size. There is normal right ventricular wall thickness. The right ventricular systolic function is normal. ATRIA The left atrium size is normal. The right atrium size is normal. The interatrial septum is intact with no evidence for an atrial septal defect. AORTIC VALVE The aortic valve is normal in structure and function. Mild aortic regurgitation is present. There is no aortic valvular stenosis. There is no aortic valvular vegetation. MITRAL VALVE The mitral valve is normal in structure and function. There is no evidence of mitral valve prolapse. There is no mitral valve stenosis. There is trace mitral valve regurgitation noted. TRICUSPID VALVE The tricuspid valve is normal in structure and function. There is mild tricuspid valve regurgitation noted. Estimated pulmonary artery systolic pressure is 53 mm Hg. There is no tricuspid valve prolapse or vegetation. There is no tricuspid valve stenosis. PULMONIC VALVE The pulmonary valve is normal in structure and function. There is no pulmonic valvular regurgitation. There is no pulmonic valvular stenosis. GREAT VESSELS The aortic root is normal in size. The ascending aorta is normal in size. The pulmonary artery is normal. The IVC is normal in size and collapses less than 50% with inspiration. PERICARDIAL EFFUSION The pericardium appears normal. There is no pleural effusion. <Conclusion> There is mild concentric left ventricular hypertrophy. The left ventricular function is normal. Mild aortic regurgitation is present. There is mild tricuspid valve regurgitation noted. Estimated pulmonary artery systolic pressure is 53 mm Hg.
[2017-07-18] MEDS: Albuterol-Ipratrop 3 mg / 0.5 (3 ml) UD INH SCH ×4 (01:15→19:28)
[2017-07-18] MEDS: Levothyroxine 25 MCG TAB PO SCH (06:07)
[2017-07-18] MEDS: MethylPREDNISolone 40 mg Vial IV SCH ×3 (06:07→21:17)
[2017-07-18] MEDS: Fluticasone-Salmeterol 250-50mcg Diskus INH SCH ×2 (07:27→19:28)
[2017-07-18 09:21] LABS: CALCIUM 8.7 mg/dl (8.6-10.4)
[2017-07-18] MEDS: Pantoprazole 40 mg EC Tab PO SCH (10:14)
--- NOTE | 2017-07-18 15:16 | CP.PCM.PN ---
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 Hypertension control with meds as ordered. Patient on ACEI/ARB as losartan, will hold due to CHESTER Monitor Input/Output, daily weights and renal function with basic metabolic panel diuretics changed to oral pt and family advised to abstain from nsaids including meloxicam start flomax 0.4 mg/day started weekly Vit D supplements x 8 weeks added sidum bicarb 650mg bid Dose meds/antibiotics for reduced GFR. Avoid fleets enema/magnesium based laxatives. Avoid nephrotoxins/NSAIDs/ iodinated contrast (unless needed emergently) Glycemic control Further work up/management as per primary team Thanks for allowing me to participate in care of your patient. Will follow patient with you. Please call if any Qs. d/w team Dr Yuan Platt Office: [phone] Chief Complaint; SOB better HPI: Pt is a 81 M with hx of hypertension (years) , CKD as known to grand daughters with low kidney function and 1 kidney smaller presented with complaints of chest pain and SOB, being managed for CHF. also seen for CHESTER hence renal consulted Denies OTC/herbal meds but admits to NSAIDs as meloxicam No recent iodinated contrast exposure. No obvious episodes of low BP. ROS: Cardiovascular: No chest pain now. Pulmonary: denies shortness of breath Gastrointestinal: denies abdominal pain No nausea. No vomiting. Genitourinary: No pain while urinating. Denies blood in urine. does reports to need to strain when urinating All other negative Physical Examination: General Appearance: Comfortable, in no acute respiratory distress, co-operative . Vitals reviewed and noted as below Head; Atraumatic, normocephalic ENT: no ulcers no thrush. Tongue is midline. Oropharynx: no rash or ulcers. EYES: Pupils are equal, round and reactive to light accommodation. Eye muscles and extraocular movement intact. Sclera is anicteric. Neck; supple no lymphadenopathy, no thyromegaly or bruit Lungs: Normal respiratory rate/effort. Breath sounds bilateral equal and clearer now Heart: Normal rate. s1s2 normal. No rub or gallop. Extremities: no edema. No varicose veins Neurological: Patient is alert, awake and oriented to person, place and time. No focal deficit. Strength bilateral appropriate and equal Skin: Warm and dry. Normal turgor. No rash. Palpitation: Normal elasticity for age Abdomen: Abdomen is soft. Bowel sounds +. There is no abdominal tenderness, no guarding/rigidity no organomegaly Psych: limited insight and normal affect/mood MSK: no joint tenderness or swelling. Digits and nails normal, no deformity : kidney or bladder not palpable Labs/imaging reviewed. Past medical history, past surgical history, family history, social history, allergy reviewed and noted as below Family hx: no hx of CKD. Rest non-contributory Objective - Vital Signs/Intake and Output Vital Signs (last 24 hours): Temp Pulse Resp BP Pulse Ox 97.4 F L 89 20 154/77 H 95 07/18/17 08:16 07/18/17 12:08 07/18/17 08:16 07/18/17 10:14 07/18/17 08:16 - Medications Medications: Current Medications Albuterol/Ipratropium (Duoneb 3 Mg/0.5 Mg (3 Ml) Ud) 3 ml INH RQ6 [facility] Last Admin: 07/18/17 13:04 Dose: 3 ml Allopurinol (Zyloprim) 100 mg PO DAILY [facility] Last Admin: 07/18/17 10:14 Dose: 100 mg Ergocalciferol (Drisdol 50,000 Intl Units Cap) 1 cap PO Q7D [facility] Last Admin: 07/17/17 13:46 Dose: 1 cap Furosemide (Lasix) 20 mg PO DAILY [facility] Last Admin: 07/18/17 10:14 Dose: 20 mg Heparin Sodium (Porcine) (Heparin) 5,000 units SC Q8 [facility] Last Admin: 07/18/17 14:22 Dose: 5,000 units Hydralazine HCl (Apresoline) 50 mg PO TID [facility] Last Admin: 07/18/17 14:22 Dose: 50 mg Levothyroxine Sodium (Synthroid) 25 mcg PO DAILY@0630 [facility] Last Admin: 07/18/17 06:07 Dose: 25 mcg Methylprednisolone (Solu-Medrol) 40 mg IV Q8 [facility] Last Admin: 07/18/17 14:22 Dose: 40 mg Metoprolol Tartrate (Lopressor) 50 mg PO Q12H [facility] Last Admin: 07/18/17 10:14 Dose: 50 mg Pantoprazole Sodium (Protonix Ec Tab) 40 mg PO DAILY [facility] Last Admin: 07/18/17 10:14 Dose: 40 mg Fluticasone/Salmeterol (Advair Diskus 250/50) 1 puff INH RQ12 [facility] Last Admin: 07/18/17 07:27 Dose: 1 puff Sodium Bicarbonate (Sodium Bicarbonate Tab) 650 mg PO BID [facility] Last Admin: 07/18/17 10:14 Dose: 650 mg Tamsulosin HCl (Flomax) 0.4 mg PO DAILY [facility] Last Admin: 07/18/17 10:14 Dose: 0.4 mg - Labs Labs: 07/17/17 07:00 07/18/17 09:01
--- NOTE | 2017-07-18 17:53 | CP.PCM.PN ---
Subjective - Date & Time of Evaluation Date of Evaluation: 07/18/17 Time of Evaluation: 17:53 Objective - Vital Signs/Intake and Output Vital Signs (last 24 hours): Temp Pulse Resp BP Pulse Ox 97.8 F 86 20 141/72 94 L 07/18/17 15:41 07/18/17 16:25 07/18/17 15:41 07/18/17 15:41 07/18/17 15:41 - Medications Medications: Current Medications Albuterol/Ipratropium (Duoneb 3 Mg/0.5 Mg (3 Ml) Ud) 3 ml INH RQ6 [facility] Last Admin: 07/18/17 13:04 Dose: 3 ml Allopurinol (Zyloprim) 100 mg PO DAILY [facility] Last Admin: 07/18/17 10:14 Dose: 100 mg Ergocalciferol (Drisdol 50,000 Intl Units Cap) 1 cap PO Q7D [facility] Last Admin: 07/17/17 13:46 Dose: 1 cap Furosemide (Lasix) 20 mg PO DAILY [facility] Last Admin: 07/18/17 10:14 Dose: 20 mg Heparin Sodium (Porcine) (Heparin) 5,000 units SC Q8 [facility] Last Admin: 07/18/17 14:22 Dose: 5,000 units Hydralazine HCl (Apresoline) 50 mg PO TID [facility] Last Admin: 07/18/17 17:27 Dose: 50 mg Levothyroxine Sodium (Synthroid) 25 mcg PO DAILY@0630 [facility] Last Admin: 07/18/17 06:07 Dose: 25 mcg Methylprednisolone (Solu-Medrol) 40 mg IV Q8 [facility] Last Admin: 07/18/17 14:22 Dose: 40 mg Metoprolol Tartrate (Lopressor) 50 mg PO Q12H [facility] Last Admin: 07/18/17 10:14 Dose: 50 mg Pantoprazole Sodium (Protonix Ec Tab) 40 mg PO DAILY [facility] Last Admin: 07/18/17 10:14 Dose: 40 mg Pneumococcal Polyvalent Vaccine (Pneumovax 23 Vaccine) 0.5 ml IM .ONCE ONE Stop: 07/19/17 10:01 Fluticasone/Salmeterol (Advair Diskus 250/50) 1 puff INH RQ12 [facility] Last Admin: 07/18/17 07:27 Dose: 1 puff Sodium Bicarbonate (Sodium Bicarbonate Tab) 650 mg PO BID [facility] Last Admin: 07/18/17 17:27 Dose: 650 mg Tamsulosin HCl (Flomax) 0.4 mg PO DAILY [facility] Last Admin: 07/18/17 10:14 Dose: 0.4 mg - Labs Labs: 07/17/17 07:00 07/18/17 09:01
--- NOTE | 2017-07-18 19:19 | CP.PCM.PN ---
<Costa Britt - Last Filed: 07/18/17 19:16> Subjective - Date & Time of Evaluation Date of Evaluation: 07/18/17 Time of Evaluation: 19:16 - Subjective Subjective: PGY-[address] Quintero's Cardiology service: Pt seen and examined at bedside. Nursing reports no acute events overnight. His daughter is present at bedside. He is oriented to person/place/time during the interview and in a lucid interval. Daughter states he has been ambulating well with no issues. Denies CP, SOB, nausea, vomiting, muscle cramping or weakness, diaphoresis. Objective - Vital Signs/Intake and Output Vital Signs (last 24 hours): Temp Pulse Resp BP Pulse Ox 97.8 F 86 20 141/72 94 L 07/18/17 15:41 07/18/17 16:25 07/18/17 15:41 07/18/17 15:41 07/18/17 15:41 - Medications Medications: Current Medications Albuterol/Ipratropium (Duoneb 3 Mg/0.5 Mg (3 Ml) Ud) 3 ml INH RQ6 [facility] Last Admin: 07/18/17 13:04 Dose: 3 ml Allopurinol (Zyloprim) 100 mg PO DAILY [facility] Last Admin: 07/18/17 10:14 Dose: 100 mg Ergocalciferol (Drisdol 50,000 Intl Units Cap) 1 cap PO Q7D [facility] Last Admin: 07/17/17 13:46 Dose: 1 cap Furosemide (Lasix) 20 mg PO DAILY [facility] Last Admin: 07/18/17 10:14 Dose: 20 mg Heparin Sodium (Porcine) (Heparin) 5,000 units SC Q8 [facility] Last Admin: 07/18/17 14:22 Dose: 5,000 units Hydralazine HCl (Apresoline) 50 mg PO TID [facility] Last Admin: 07/18/17 17:27 Dose: 50 mg Levothyroxine Sodium (Synthroid) 25 mcg PO DAILY@0630 [facility] Last Admin: 07/18/17 06:07 Dose: 25 mcg Methylprednisolone (Solu-Medrol) 40 mg IV Q8 [facility] Last Admin: 07/18/17 14:22 Dose: 40 mg Metoprolol Tartrate (Lopressor) 50 mg PO Q12H [facility] Last Admin: 07/18/17 10:14 Dose: 50 mg Pantoprazole Sodium (Protonix Ec Tab) 40 mg PO DAILY [facility] Last Admin: 07/18/17 10:14 Dose: 40 mg Pneumococcal Polyvalent Vaccine (Pneumovax 23 Vaccine) 0.5 ml IM .ONCE ONE Stop: 07/19/17 10:01 Fluticasone/Salmeterol (Advair Diskus 250/50) 1 puff INH RQ12 [facility] Last Admin: 07/18/17 07:27 Dose: 1 puff Sodium Bicarbonate (Sodium Bicarbonate Tab) 650 mg PO BID [facility] Last Admin: 07/18/17 17:27 Dose: 650 mg Tamsulosin HCl (Flomax) 0.4 mg PO DAILY [facility] Last Admin: 07/18/17 10:14 Dose: 0.4 mg - Labs Labs: 07/17/17 07:00 07/18/17 09:01 - Constitutional Appears: Non-toxic, Confused - Head Exam Head Exam: ATRAUMATIC, NORMAL INSPECTION - Eye Exam Eye Exam: PERRL - ENT Exam ENT Exam: Mucous Membranes Dry - Respiratory Exam Respiratory Exam: Clear to Ausculation Bilateral, NORMAL BREATHING PATTERN - Cardiovascular Exam Cardiovascular Exam: REGULAR RHYTHM, +S1, +S2 - GI/Abdominal Exam GI & Abdominal Exam: Soft, Normal Bowel Sounds - Extremities Exam Extremities Exam: Pedal Edema (1+ bilaterally). absent: Normal Inspection - Neurological Exam Neurological Exam: Alert, Awake. absent: Oriented x3 - Skin Skin Exam: Intact Assessment and Plan - Assessment and Plan (Free Text) Plan: Chest pain, resolved Etiology: non-cardiac ECHO (07/16/17): EF 82.5%, mild concentric LVH, mild aortic regurgitation, mild tricuspid regurgitation EKG (07/15/17): NSR, Lt anterior fascicular block. LVH Troponin neg x 3 HTN Systolic elevation over course; but better controlled recently ECHO c/w long-term HTN Lasix 20mg PO Daily Hydralazine 50mg PO TID Lopressor 50mg PO Q12H Flomax 0.4mg PO Daily Costa Britt PGY-2 D/w Dr. Quintero <Armando Quintero - Last Filed: 07/18/17 22:22> Objective - Vital Signs/Intake and Output Vital Signs (last 24 hours): Temp Pulse Resp BP Pulse Ox 97.8 F 86 20 141/72 94 L 07/18/17 15:41 07/18/17 16:25 07/18/17 15:41 07/18/17 15:41 07/18/17 15:41 - Medications Medications: Current Medications Albuterol/Ipratropium (Duoneb 3 Mg/0.5 Mg (3 Ml) Ud) 3 ml INH RQ6 [facility] Last Admin: 07/18/17 19:28 Dose: 3 ml Allopurinol (Zyloprim) 100 mg PO DAILY [facility] Last Admin: 07/18/17 10:14 Dose: 100 mg Ergocalciferol (Drisdol 50,000 Intl Units Cap) 1 cap PO Q7D [facility] Last Admin: 07/17/17 13:46 Dose: 1 cap Furosemide (Lasix) 20 mg PO DAILY [facility] Last Admin: 07/18/17 10:14 Dose: 20 mg Heparin Sodium (Porcine) (Heparin) 5,000 units SC Q8 [facility] Last Admin: 07/18/17 21:17 Dose: 5,000 units Hydralazine HCl (Apresoline) 50 mg PO TID [facility] Last Admin: 07/18/17 17:27 Dose: 50 mg Levothyroxine Sodium (Synthroid) 25 mcg PO DAILY@0630 [facility] Last Admin: 07/18/17 06:07 Dose: 25 mcg Methylprednisolone (Solu-Medrol) 40 mg IV Q8 [facility] Last Admin: 07/18/17 21:17 Dose: 40 mg Metoprolol Tartrate (Lopressor) 50 mg PO Q12H [facility] Last Admin: 07/18/17 21:18 Dose: 50 mg Pantoprazole Sodium (Protonix Ec Tab) 40 mg PO DAILY [facility] Last Admin: 07/18/17 10:14 Dose: 40 mg Pneumococcal Polyvalent Vaccine (Pneumovax 23 Vaccine) 0.5 ml IM .ONCE ONE Stop: 07/19/17 10:01 Fluticasone/Salmeterol (Advair Diskus 250/50) 1 puff INH RQ12 [facility] Last Admin: 07/18/17 19:28 Dose: 1 puff Sodium Bicarbonate (Sodium Bicarbonate Tab) 650 mg PO BID [facility] Last Admin: 07/18/17 17:27 Dose: 650 mg Tamsulosin HCl (Flomax) 0.4 mg PO DAILY [facility] Last Admin: 07/18/17 10:14 Dose: 0.4 mg - Labs Labs: 07/17/17 07:00 07/18/17 09:01 Assessment and Plan - Assessment and Plan (Free Text) Plan: Patient seen and evaluated personally by me Plan of care d/w the medical laboratory technologist and as documented
[2017-07-19] MEDS: Albuterol-Ipratrop 3 mg / 0.5 (3 ml) UD INH SCH ×3 (01:14→13:11)
[2017-07-19] MEDS: Levothyroxine 25 MCG TAB PO SCH (06:19)
[2017-07-19] MEDS: MethylPREDNISolone 40 mg Vial IV SCH ×2 (06:21→13:28)
[2017-07-19 06:48] LABS: CALCIUM 7.8 mg/dl (8.6-10.4)
[2017-07-19] MEDS: Fluticasone-Salmeterol 250-50mcg Diskus INH SCH (07:43)
[2017-07-19] MEDS ORDERED: Pneumococcal 23-Valent Vaccine IM ONE (10:00)
[2017-07-19] MEDS: Pantoprazole 40 mg EC Tab PO SCH (10:55)
--- NOTE | 2017-07-19 14:19 | CP.PCM.PN ---
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 Hypertension control with meds as ordered. Patient on ACEI/ARB as losartan, will hold due to CHESTER Monitor Input/Output, daily weights and renal function with basic metabolic panel diuretics changed to oral pt and family advised to abstain from nsaids including meloxicam start flomax 0.4 mg/day started weekly Vit D supplements x 8 weeks added sodium bicarb 650mg bid Dose meds/antibiotics for reduced GFR. Avoid fleets enema/magnesium based laxatives. Avoid nephrotoxins/NSAIDs/ iodinated contrast (unless needed emergently) Glycemic control Further work up/management as per primary team pt stable for d/c from renal perspective when planned. f/up in renal clinic 1 week Thanks for allowing me to participate in care of your patient. Will follow patient with you. Please call if any Qs. d/w team and family Dr Yuan Platt Office: [phone] Chief Complaint; SOB better HPI: Pt is a 81 M with hx of hypertension (years) , CKD as known to grand daughters with low kidney function and 1 kidney smaller presented with complaints of chest pain and SOB, being managed for CHF. also seen for CHESTER hence renal consulted Denies OTC/herbal meds but admits to NSAIDs as meloxicam No recent iodinated contrast exposure. No obvious episodes of low BP. ROS: Cardiovascular: No chest pain now. Pulmonary: denies shortness of breath Gastrointestinal: denies abdominal pain No nausea. No vomiting. Genitourinary: No pain while urinating. Denies blood in urine. does reports to need to strain when urinating All other negative Physical Examination: General Appearance: Comfortable, in no acute respiratory distress, co-operative . Vitals reviewed and noted as below Head; Atraumatic, normocephalic ENT: no ulcers no thrush. Tongue is midline. Oropharynx: no rash or ulcers. EYES: Pupils are equal, round and reactive to light accommodation. Eye muscles and extraocular movement intact. Sclera is anicteric. Neck; supple no lymphadenopathy, no thyromegaly or bruit Lungs: Normal respiratory rate/effort. Breath sounds bilateral equal and clearer now Heart: Normal rate. s1s2 normal. No rub or gallop. Extremities: no edema. No varicose veins Neurological: Patient is alert, awake and oriented to person, place and time. No focal deficit. Strength bilateral appropriate and equal Skin: Warm and dry. Normal turgor. No rash. Palpitation: Normal elasticity for age Abdomen: Abdomen is soft. Bowel sounds +. There is no abdominal tenderness, no guarding/rigidity no organomegaly Psych: limited insight and normal affect/mood MSK: no joint tenderness or swelling. Digits and nails normal, no deformity : kidney or bladder not palpable Labs/imaging reviewed. Past medical history, past surgical history, family history, social history, allergy reviewed and noted as below Family hx: no hx of CKD. Rest non-contributory Objective - Vital Signs/Intake and Output Vital Signs (last 24 hours): Temp Pulse Resp BP Pulse Ox 97.2 F L 79 18 136/76 97 07/19/17 07:30 07/19/17 07:30 07/19/17 07:30 07/19/17 10:54 07/19/17 07:30 Intake and Output: 07/19/17 07/19/17 06:59 18:59 Intake Total 240 480 Balance 240 480 - Medications Medications: Current Medications Albuterol/Ipratropium (Duoneb 3 Mg/0.5 Mg (3 Ml) Ud) 3 ml INH RQ6 [facility] Last Admin: 07/19/17 13:11 Dose: 3 ml Allopurinol (Zyloprim) 100 mg PO DAILY [facility] Last Admin: 07/19/17 10:54 Dose: 100 mg Ergocalciferol (Drisdol 50,000 Intl Units Cap) 1 cap PO Q7D [facility] Last Admin: 07/17/17 13:46 Dose: 1 cap Furosemide (Lasix) 20 mg PO DAILY [facility] Last Admin: 07/19/17 10:54 Dose: 20 mg Heparin Sodium (Porcine) (Heparin) 5,000 units SC Q8 [facility] Last Admin: 07/19/17 13:31 Dose: 5,000 units Hydralazine HCl (Apresoline) 50 mg PO TID [facility] Last Admin: 07/19/17 12:51 Dose: 50 mg Levothyroxine Sodium (Synthroid) 25 mcg PO DAILY@0630 [facility] Last Admin: 07/19/17 06:19 Dose: 25 mcg Methylprednisolone (Solu-Medrol) 40 mg IV Q8 [facility] Last Admin: 07/19/17 13:28 Dose: 40 mg Metoprolol Tartrate (Lopressor) 50 mg PO Q12H [facility] Last Admin: 07/19/17 12:51 Dose: 50 mg Pantoprazole Sodium (Protonix Ec Tab) 40 mg PO DAILY [facility] Last Admin: 07/19/17 10:55 Dose: 40 mg Fluticasone/Salmeterol (Advair Diskus 250/50) 1 puff INH RQ12 [facility] Last Admin: 07/19/17 07:43 Dose: 1 puff Sodium Bicarbonate (Sodium Bicarbonate Tab) 650 mg PO BID [facility] Last Admin: 07/19/17 10:54 Dose: 650 mg Tamsulosin HCl (Flomax) 0.4 mg PO DAILY [facility] Last Admin: 07/19/17 10:55 Dose: 0.4 mg - Labs Labs: 07/17/17 07:00 07/19/17 06:20
[2017-07-19 17:11] VITALS: BP 153/74; RESP 20; TEMP 97.6; O2SAT 96
--- NOTE | 2017-07-19 17:36 | CP.PCM.PN ---
Subjective - Date & Time of Evaluation Date of Evaluation: 07/19/17 Time of Evaluation: 11:10 - Subjective Subjective: Patient seen today, denei s any chewst pain, sob, abdominla pain, dysuria, flank pain, heamturia, N/V/D oob ambulating without sob bun/cr- improved seen by Dr. Platt today , cleared from renal stand point for discharge home and f /u with his office in 1-2 weeks Objective - Vital Signs/Intake and Output Vital Signs (last 24 hours): Temp Pulse Resp BP Pulse Ox 97.6 F 87 20 153/74 H 96 07/19/17 15:10 07/19/17 15:10 07/19/17 15:10 07/19/17 15:10 07/19/17 15:10 Intake and Output: 07/19/17 07/19/17 06:59 18:59 Intake Total 240 480 Balance 240 480 - Medications Medications: Current Medications Albuterol/Ipratropium (Duoneb 3 Mg/0.5 Mg (3 Ml) Ud) 3 ml INH RQ6 [facility] Last Admin: 07/19/17 13:11 Dose: 3 ml Allopurinol (Zyloprim) 100 mg PO DAILY [facility] Last Admin: 07/19/17 10:54 Dose: 100 mg Ergocalciferol (Drisdol 50,000 Intl Units Cap) 1 cap PO Q7D [facility] Last Admin: 07/17/17 13:46 Dose: 1 cap Furosemide (Lasix) 20 mg PO DAILY [facility] Last Admin: 07/19/17 10:54 Dose: 20 mg Heparin Sodium (Porcine) (Heparin) 5,000 units SC Q8 [facility] Last Admin: 07/19/17 13:31 Dose: 5,000 units Hydralazine HCl (Apresoline) 50 mg PO TID [facility] Last Admin: 07/19/17 15:34 Dose: 50 mg Levothyroxine Sodium (Synthroid) 25 mcg PO DAILY@0630 [facility] Last Admin: 07/19/17 06:19 Dose: 25 mcg Methylprednisolone (Solu-Medrol) 40 mg IV Q8 [facility] Last Admin: 07/19/17 13:28 Dose: 40 mg Metoprolol Tartrate (Lopressor) 50 mg PO Q12H [facility] Last Admin: 07/19/17 12:51 Dose: 50 mg Pantoprazole Sodium (Protonix Ec Tab) 40 mg PO DAILY [facility] Last Admin: 07/19/17 10:55 Dose: 40 mg Fluticasone/Salmeterol (Advair Diskus 250/50) 1 puff INH RQ12 [facility] Last Admin: 07/19/17 07:43 Dose: 1 puff Sodium Bicarbonate (Sodium Bicarbonate Tab) 650 mg PO BID [facility] Last Admin: 07/19/17 10:54 Dose: 650 mg Tamsulosin HCl (Flomax) 0.4 mg PO DAILY [facility] Last Admin: 07/19/17 10:55 Dose: 0.4 mg - Labs Labs: 07/17/17 07:00 07/19/17 06:20 Assessment and Plan - Assessment and Plan (Free Text) Assessment: A/P 81 YR OLD male with pmhx of Dementia, HTN, Hypothyroidism admitted with chest pain troponin x 3 - negative echo- EF 82.5%, mild concentric LVH, mild aortic regurgitation, mild tricuspid regurgitation EKG (07/15/17): NSR, Lt anterior fascicular block. LVH D/w Dr. Norwood, stable for discharge home today and f/u with PMD in 5 days
[2017-07-19 19:36] VITALS: PULSE 95
== END 2017-07-19 19:14 | disposition home or self-care (01) | DRG 544 ==
LOC: C.ER 20:43 → C.9E 22:23 → C.6T 22:45 → OBSVTOIN 07-18 15:06
PROVIDERS: ADMIT Internal Medicine Critical Care Medicine; ATTEND Internal Medicine Critical Care Medicine
DX: I13.0 Hypertensive heart and chronic kidney disease with heart failure and stage 1 through stage 4 chronic kidney disease, or unspecified chronic kidney disease (principal); N17.9 Acute kidney failure, unspecified; I50.9 Heart failure, unspecified; I35.1 Nonrheumatic aortic (valve) insufficiency; N18.4 Chronic kidney disease, stage 4 (severe); F03.90 Unspecified dementia, unspecified severity, without behavioral disturbance, psychotic disturbance, mood disturbance, and anxiety; I44.4 Left anterior fascicular block; J45.909 Unspecified asthma, uncomplicated; E03.9 Hypothyroidism, unspecified

== ENCOUNTER 2017-12-17 13:05 | Inpatient (IN) | payer MEDICARE, MEDICAID ==
[2017-12-17] MEDS ORDERED: Aspirin 325 mg EC Tablets PO STA (13:20)
--- NOTE | 2017-12-17 13:25 | C.PDOC ---
History Of Present Illness 82yo male, history of hypertension, brought to ER by family for evaluation after they found him "unresponsive." Per family, patient was sitting and had a syncopal episode, was on the floor "unresponsive." On arrival to ER, patient noted to be alert and oriented, but slow to respond to questions. He states he does not feel well and attributes it to "my hypertension or my kidneys." Otherwise, patient denies any headache, weakness, numbness, nausea, vomiting, and offers no additional medical complaints. PMD: Dr. Minaya Time Seen by Provider: 12/17/17 13:20 Chief Complaint (Nursing): Syncope History Per: Patient, Family History/Exam Limitations: no limitations Onset/Duration Of Symptoms: Mins Current Symptoms Are (Timing): Gone Activity At Onset Of Symptoms: Sitting Seizure Or Post-ictal Symptoms: None Additional History Per: Patient Past Medical History Reviewed: Historical Data, Nursing Documentation, Vital Signs Vital Signs: Last Vital Signs Temp 97.4 F L 12/17/17 14:37 Pulse 78 12/17/17 14:37 Resp 16 12/17/17 13:20 BP 169/84 H 12/17/17 14:37 Pulse Ox 100 12/17/17 15:06 - Medical History PMH: Arthritis, Dementia, HTN, Hypothyroidism Surgical History: No Surg Hx Family History: States: No Known Family Hx - Social History Hx Alcohol Use: No Hx Substance Use: No Review Of Systems Except As Marked, All Systems Reviewed And Found Negative. Constitutional: Negative for: Fever, Chills Cardiovascular: Negative for: Chest Pain Respiratory: Negative for: Shortness of Breath Gastrointestinal: Negative for: Nausea, Vomiting Neurological: Negative for: Weakness, Numbness, Change in Speech, Confusion, Seizures, Headache Physical Exam - Physical Exam Appears: Non-toxic, No Acute Distress Skin: Normal Color, Warm, Dry Head: Atraumatic, Normacephalic Eye(s): bilateral: Normal Inspection, PERRL, EOMI Oral Mucosa: Moist Neck: Normal ROM, Supple Chest: Symmetrical Cardiovascular: Rhythm Regular Respiratory: Normal Breath Sounds Gastrointestinal/Abdominal: Normal Exam, Soft, No Tenderness Back: Normal Inspection, No CVA Tenderness, No Vertebral Tenderness Extremity: Normal ROM, No Deformity, Other (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) Neurological/Psych: Oriented x3, Normal Speech, Normal Cognition, Normal Cranial Nerves (2-12), Normal Motor, Normal Sensation Other Neurological Findings: No Facial Palsy, No Tongue Deviation Extremity: Right: No Drift, Left: No Drift, Upper: No Drift, Lower: No Drift ED Course And Treatment - Laboratory Results Result Diagrams: 12/17/17 13:41 12/17/17 13:41 Lab Interpretation: Abnormal ECG: Interpreted By Me ECG Interpretation: Normal Rate From EC (qtc 493) O2 Sat by Pulse Oximetry: 100 Pulse Ox Interpretation: Normal - Radiology CXR: Interpreted by Me CXR Interpretation: Yes: No Acute Disease, Heart Size - CT Scan/US head CT Other Rad Studies (CT/US): Interpreted By Me, Read By Radiologist (no acute findings) Reevaluation Time: 14:46 Reassessment Condition: Improved (back to baseline. Consider post-ictal after absance seizure vs transient TIA from potential arrhythmia) - Physician Consult Information Outcome Of Conversation: [id number]: d/w Dr. Jennifer Goldberg- [employer]- covering insured pt's for Dr. Edmar Minaya, [place] to admit NIHSS Stroke Scale 2 - Date/Time Evaluation Performed Date Performed: 12/17/17 Time Performed: 13:15 When Was NIHSS Performed: Baseline - How Severe is the Stroke Level of Consciousness: 0=Alert LOC to Questions: 0=Both comments correct LOC to commands: 0=Obeys both correctly Best Gaze: 0=Normal Visual: 0=No visual loss Facial: 0=Normal Motor Arm - Left: 0=No drift Motor Arm - Right: 0=No drift Motor Leg - Left: 0=No drift Motor Leg - Right: 0=No drift Limb Ataxia: 1=Present Upper or Lower Sensory: 0=Normal Best Language: 0=No aphasia Dysarthia: 1=Mild to moderate slurring Extinction & Inattention (Neglect): 0=Normal, no object Score: 2 rTPA Inclusion/Exclusion - Refusal of Treatment Patient Refused Treatment: No - Inclusion Criteria for Altepase Patient is 18 years or Older: Yes The Clinical Diagnosis of Ischemic Stroke That is Causing a Potentially Disabling Neurological Deficit: No Time of Onset is Well Established to be Less Than 270 Minute Before Treatment Would Begin: Yes Risk/Benefit Discussed With Patient/Family Member Present: No - Exclusion Criteria for Altepase Uncontrolled Hypertension at Time of Treatment (Systolic BP above 185 or Diastolic BP above 110 mmHg): No Known Bleeding Diathesis Including but Not Limited to: Platelets Below 100,000/ mm,PTT Above 40 sec After Heparin Use, Current Use of Oral Anitcoagulant With INR Greater Than 1.7 or PT Greater Than 15 secs: No Evidence of Major Acute Infarct With Signs Greater Than 1/3 MCA Territory: No - Warning to TPA With Conditions Condition: Stroke Serevity Too Mild, Rapid Improvement Medical Decision Making Medical Decision Making: Plan: * Labs * CT Head w.o contrast * EKG * Aspirin 325mg PO * Urinalysis DDX: dementia, vs absance seizure, vs TIA vs tachy/katelyn arrthymia NSR 88 w mild prolonged QTC 493 CRI creat 2.8 is IMPROVED from baseline 3.3 14:47 CT Head w.o contrast FINDINGS: HEMORRHAGE: No intracranial hemorrhage. BRAIN: There is an old lacunar infarction in the right anterior paramedian thalamus. There are mild chronic microangiopathic changes. There is an old infarction in the left anterior temporal lobe. There is no mass, mass effect or abnormal extra-axial fluid collection. There is no territorial infarction. The midline sagittal structures are normal. VENTRICLES: There is mild age-related global parenchymal volume loss and proportionate enlargement of the ventricles and cortical sulci. CALVARIUM: Unremarkable. PARANASAL SINUSES: Chronic left maxillary sinusitis. The remaining included paranasal sinuses are clear. MASTOID AIR CELLS: Predominantly clear. OTHER FINDINGS: None. IMPRESSION: No acute intracranial abnormality. 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 Mild age-related global parenchymal volume loss. Disposition Doctor Will See Patient In The: Hospital Counseled Patient/Family Regarding: Studies Performed, Diagnosis - Disposition Disposition: HOSPITALIZED Disposition Time: 14:48 Condition: GOOD Forms: [employer] ([employer] - Clinical Impression Clinical Impression: Syncope - Scribe Statement The provider has reviewed the documentation as recorded by the Gordon Tavares Provider Attestation: All medical record entries made by the Gordon were at my direction and personally dictated by me. I have reviewed the chart and agree that the record accurately reflects my personal performance of the history, physical exam, medical decision making, and the department course for this patient. I have also personally directed, reviewed, and agree with the discharge instructions and disposition.
[2017-12-17 13:58] LABS: SQUAMOUS EPITHIAL < 1 /hpf (0-5); URINE BILIRUBIN NEGATIVE (NEGATIVE); URINE BLOOD NEGATIVE (NEGATIVE); URINE CLARITY Clear (Clear); URINE COLOR Yellow (YELLOW); URINE GLUCOSE (UA) NORMAL (Normal); URINE LEUKOCYTE ESTERASE NEG Leu/uL (Negative); URINE PROTEIN NEGATIVE (NEGATIVE); URINE UROBILINOGEN NORMAL mg/dL (0.2-1.0)
[2017-12-17 14:05] LABS: BASO # 0.1 K/uL (0.0-0.2); BASO % 0.5 % (0.0-2.0); EOS # 1.6 K/uL (0.0-0.7); EOS % 12.8 % (0.0-4.0); HEMOGLOBIN 14.3 g/dL (12.0-18.0); LYMPH # 2.1 K/uL (1.0-4.3); LYMPH % 17.2 % (20.0-40.0); MEAN CELL VOLUME 97.3 fL (80.0-94.0); MEAN CORPUSCULAR HEMOGLOBIN 33.6 pg (27.0-31.0); MEAN CORPUSCULAR HGB CONC 34.5 g/dL (33.0-37.0); MEAN PLATELET VOLUME 9.5 fL (7.2-11.7); MONO # 0.7 K/uL (0.0-0.8); MONO % 5.6 % (0.0-10.0); NEUT # 7.9 K/uL (1.8-7.0); NEUT % 63.9 % (50.0-75.0); NRBC % 0.1 % (0.0-2.0); RBC 4.26 Mil/uL (4.40-5.90); RED CELL DISTRIBUTION WIDTH 14.1 % (11.5-14.5); WHITE BLOOD COUNT 12.3 K/uL (4.8-10.8)
[2017-12-17 14:17] LABS: ALB/GLOB RATIO 1.2 (1.0-2.1); ALBUMIN 4.4 g/dL (3.5-5.0); CALCIUM 9.5 mg/dl (8.6-10.4); INR 1.1; PROTHROMBIN TIME 11.6 SECONDS (9.7-12.2)
[2017-12-17] MEDS ORDERED: Aspirin 325 mg EC Tablets PO ONE ×2 (14:17→15:01)
[2017-12-17 14:39] LABS: TROPONIN I 0.013 ng/mL (0.00-0.120)
--- NOTE | 2017-12-17 14:48 | CT ---
Date of service: 12/17/2017 PROCEDURE: CT HEAD WITHOUT CONTRAST. HISTORY: syncope, confusion, ? L temporal COMPARISON: None available. TECHNIQUE: Axial computed tomography images were obtained through the head/brain without intravenous contrast. Radiation dose: Total exam DLP = 980.15 mGy-cm. This CT exam was performed using one or more of the following dose reduction techniques: Automated exposure control, adjustment of the mA and/or kV according to patient size, and/or use of iterative reconstruction technique. FINDINGS: HEMORRHAGE: No intracranial hemorrhage. BRAIN: There is an old lacunar infarction in the right anterior paramedian thalamus. There are mild chronic microangiopathic changes. There is an old infarction in the left anterior temporal lobe. There is no mass, mass effect or abnormal extra-axial fluid collection. There is no territorial infarction. The midline sagittal structures are normal. VENTRICLES: There is mild age-related global parenchymal volume loss and proportionate enlargement of the ventricles and cortical sulci. CALVARIUM: Unremarkable. PARANASAL SINUSES: Chronic left maxillary sinusitis. The remaining included paranasal sinuses are clear. MASTOID AIR CELLS: Predominantly clear. OTHER FINDINGS: None. IMPRESSION: No acute intracranial abnormality. 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 Mild age-related global parenchymal volume loss.
--- NOTE | 2017-12-17 15:35 | RAD ---
Date of service: 12/17/2017 PROCEDURE: CHEST RADIOGRAPH, 1 VIEW HISTORY: chest pain COMPARISON: 07/15/2017. FINDINGS: LUNGS: Clear. PLEURA: No pneumothorax or pleural fluid seen. CARDIOVASCULAR: Cardiomegaly. No evidence of acute, significant cardiovascular disease. OSSEOUS STRUCTURES: No significant abnormalities. VISUALIZED UPPER ABDOMEN: Normal. OTHER FINDINGS: None. IMPRESSION: No active disease.No significant interval change compared to the prior examination(s).
[2017-12-17] MEDS ORDERED: DICLOFENAC SODIUM 1% TOP PRN (16:48)
--- NOTE | 2017-12-17 16:54 | CP.PCM.HP ---
Past Patient History - Infectious Disease Hx of Infectious Diseases: None - Past Social History Smoking Status: Never Smoked - CARDIAC Hx Hypertension: Yes - NEUROLOGICAL Hx Dementia: Yes - RENAL Hx Renal Failure: Yes - ENDOCRINE/METABOLIC Hx Hypothyroidism: Yes - MUSCULOSKELETAL/RHEUMATOLOGICAL Hx Arthritis: Yes - PSYCHIATRIC Hx Substance Use: No - SURGICAL HISTORY Hx Surgeries: No - ANESTHESIA Hx Anesthesia: No Meds Allergies/Adverse Reactions: Allergies Allergy/AdvReac Type Severity Reaction Status Date / Time No Known Allergies Allergy Verified 12/17/17 13:17 Results - Vital Signs Recent Vital Signs: Last Vital Signs Temp 97.4 F L 12/17/17 14:37 Pulse 78 12/17/17 14:37 Resp 16 12/17/17 13:20 BP 169/84 H 12/17/17 14:37 Pulse Ox 100 12/17/17 15:10 - Labs Result Diagrams: 12/17/17 13:41 12/17/17 13:41 Labs: Laboratory Results - last 24 hr 12/17/17 12/17/17 12/17/17 13:21 13:41 13:41 WBC 12.3 H RBC 4.26 L Hgb 14.3 Hct 41.5 MCV 97.3 H MCH 33.6 H MCHC 34.5 RDW 14.1 Plt Count 197 MPV 9.5 Neut % (Auto) 63.9 Lymph % (Auto) 17.2 L [place] % (Auto) 5.6 Eos % (Auto) 12.8 H Baso % (Auto) 0.5 Neut # (Auto) 7.9 H Lymph # (Auto) 2.1 [place] # (Auto) 0.7 Eos # (Auto) 1.6 H Baso # (Auto) 0.1 PT 11.6 INR 1.1 APTT 30 Sodium Potassium Chloride Carbon Dioxide Anion Gap BUN Creatinine Est GFR ( Amer) Est GFR (Non-Af Amer) POC Glucose (mg/dL) 133 H Random Glucose Calcium Total Bilirubin AST ALT Alkaline Phosphatase Troponin I Total Protein Albumin Globulin Albumin/Globulin Ratio Urine Color Urine Clarity Urine pH Ur Specific [place] Urine Protein Urine Glucose (UA) Urine Ketones Urine Blood Urine Nitrate Urine Bilirubin Urine Urobilinogen Ur Leukocyte Esterase Urine WBC (Auto) Ur Squamous Epith Cells 12/17/17 12/17/17 13:41 13:41 WBC RBC Hgb Hct MCV MCH MCHC RDW Plt Count MPV Neut % (Auto) Lymph % (Auto) [place] % (Auto) Eos % (Auto) Baso % (Auto) Neut # (Auto) Lymph # (Auto) [place] # (Auto) Eos # (Auto) Baso # (Auto) PT INR APTT Sodium 137 Potassium 4.0 Chloride 96 L Carbon Dioxide 26 Anion Gap 18 BUN 36 H Creatinine 2.8 H Est GFR ( Amer) 26 Est GFR (Non-Af Amer) 22 POC Glucose (mg/dL) Random Glucose 129 H Calcium 9.5 Total Bilirubin 1.0 AST 17 D ALT 18 L D Alkaline Phosphatase 123 Troponin I 0.0130 Total Protein 8.0 Albumin 4.4 Globulin 3.6 Albumin/Globulin Ratio 1.2 Urine Color Yellow Urine Clarity Clear Urine pH 6.0 Ur Specific [place] 1.008 Urine Protein Negative Urine Glucose (UA) Normal Urine Ketones Negative Urine Blood Negative Urine Nitrate Negative Urine Bilirubin Negative Urine Urobilinogen Normal Ur Leukocyte Esterase Neg Urine WBC (Auto) < 1 Ur Squamous Epith Cells < 1 Assessment & Plan - Assessment and Plan (Free Text) Plan: Cardiology Neurology Ativan Hydralazine Aspirin Metoprolol Allopurinol WBC is 12.3 no need of antibiotic Potassium is 4.0 Bicarbonate is 26 As ordered Will discontinue bicarbonate tablet
[2017-12-17] MEDS ORDERED: Ergocalciferol 50,000 Intl Units Cap PO SCH (17:00)
[2017-12-17 23:20] LABS: CK-MB 0.83 ng/mL (0.0-3.38); TROPONIN I 0.032 ng/mL (0.00-0.120)
[2017-12-18 01:08] VITALS: RESP 20
[2017-12-18 06:03] LABS: CK-MB 0.66 ng/mL (0.0-3.38); TROPONIN I 0.025 ng/mL (0.00-0.120)
[2017-12-18] MEDS: Pantoprazole 40 mg EC Tab PO SCH (09:57)
[2017-12-18] MEDS ORDERED: Enoxaparin 40 mg Syringe SC SCH (10:00)
[2017-12-18] MEDS: Fluticasone-Vilanterol 100/25mcg Diskus INH SCH (11:53)
--- NOTE | 2017-12-18 13:02 | CP.PCM.CON ---
History of Present Illness - History of Present Illness History of Present Illness: 82yo male, history of hypertension, brought to ER by family for evaluation after they found him "unresponsive." Per family, patient was sitting and had a syncopal episode, was on the floor "unresponsive." On arrival to ER, patient noted to be alert and oriented, but slow to respond to questions. He states he does not feel well and attributes it to "my hypertension." States BP was too low after taking medications Otherwise, patient denies any headache, weakness, numbness, nausea, vomiting, and offers no additional medical complaints. Ambulating without any event denies CP or CHF sx's Chronic medica problems 1. HTN chronic stable 2. BPH stable on flomax 3. Chronic kidney disease, etiology unknown , possible HTN 4. Mild dementia: Oriented x2 TELE: NSR Medical Hx: HTN chronic stable on meds, No DM, non-smoker [place] HX: NO reported PCI or procedures Surgical HX: None major Review of Systems - Review of Systems All systems: reviewed and no additional remarkable complaints except Past Patient History - Infectious Disease Hx of Infectious Diseases: None - Past Medical History & Family History Past Medical History?: Yes - Past Social History Smoking Status: Never Smoked - CARDIAC Hx Hypertension: Yes - PULMONARY Hx Respiratory Disorders: No - NEUROLOGICAL Hx Neurological Disorder: Yes Hx Dementia: Yes - HEENT Hx HEENT Problems: No - RENAL Hx Chronic Kidney Disease: Yes Hx Renal Failure: Yes - ENDOCRINE/METABOLIC Hx Hypothyroidism: Yes - HEMATOLOGICAL/ONCOLOGICAL Hx Blood Disorders: No - INTEGUMENTARY Hx Dermatological Problems: No - MUSCULOSKELETAL/RHEUMATOLOGICAL Hx Arthritis: Yes - GASTROINTESTINAL Hx Gastrointestinal Disorders: No - GENITOURINARY/GYNECOLOGICAL Hx Genitourinary Disorders: No - PSYCHIATRIC Hx Psychophysiologic Disorder: No Hx Substance Use: No - SURGICAL HISTORY Hx Surgeries: No - ANESTHESIA Hx Anesthesia: No Hx Anesthesia Reactions: No Hx Malignant Hyperthermia: No Has any member of the family had a problem w/ anesthesia?: No Meds Allergies/Adverse Reactions: Allergies Allergy/AdvReac Type Severity Reaction Status Date / Time No Known Allergies Allergy Verified 12/17/17 13:17 - Medications Medications: Current Medications Allopurinol (Zyloprim) 100 mg PO DAILY [facility] Last Admin: 12/18/17 09:56 Dose: 100 mg Enoxaparin Sodium (Lovenox) 40 mg SC DAILY [facility] Ergocalciferol (Drisdol 50,000 Intl Units Cap) 1 cap PO Q7D [facility] Last Admin: 12/17/17 18:13 Dose: 1 cap Fluticasone/Vilanterol (Breo Ellipta 100-25 Mcg Inh) 1 puff INH RQ24 [facility] Last Admin: 12/18/17 11:53 Dose: 1 puff Furosemide (Lasix) 20 mg PO DAILY [facility] Last Admin: 12/18/17 09:57 Dose: 20 mg Hydralazine HCl (Apresoline) 50 mg PO TID [facility] Last Admin: 12/18/17 09:57 Dose: 50 mg Metoprolol Tartrate (Lopressor) 50 mg PO BID [facility] Last Admin: 12/18/17 09:51 Dose: 50 mg Pantoprazole Sodium (Protonix Ec Tab) 40 mg PO DAILY [facility] Last Admin: 12/18/17 09:57 Dose: 40 mg Tamsulosin HCl (Flomax) 0.4 mg PO DAILY [facility] Last Admin: 12/18/17 09:51 Dose: 0.4 mg Physical Exam - Constitutional Appears: No Acute Distress - Head Exam Head Exam: ATRAUMATIC, NORMAL INSPECTION, NORMOCEPHALIC - Eye Exam Eye Exam: EOMI, Normal appearance, PERRL - ENT Exam ENT Exam: Mucous Membranes Moist, Normal Exam - Neck Exam Neck exam: Positive for: Normal Inspection - Respiratory Exam Respiratory Exam: Clear to Auscultation Bilateral. absent: Rhonchi, Wheezes - Cardiovascular Exam Cardiovascular Exam: REGULAR RHYTHM, +S1, +S2. absent: Gallop, Systolic Murmur - GI/Abdominal Exam GI & Abdominal Exam: Normal Bowel Sounds, Soft. absent: Tenderness - Extremities Exam Extremities exam: Positive for: normal inspection, pedal pulses present. Negative for: calf tenderness, pedal edema - Back Exam Back exam: NORMAL INSPECTION - Neurological Exam Neurological exam: Alert (orieted x2), CN II-XII Intact - Psychiatric Exam Psychiatric exam: Normal Affect, Normal Mood - Skin Skin Exam: Normal Color, Warm Results - Vital Signs Recent Vital Signs: Last Vital Signs Temp 97.5 F L 12/18/17 07:00 Pulse 76 12/18/17 11:51 Resp 20 12/18/17 07:00 BP 149/75 12/18/17 09:57 Pulse Ox 95 12/18/17 11:51 - Labs Result Diagrams: 12/17/17 13:41 12/17/17 13:41 Labs: Laboratory Results - last 24 hr 12/17/17 12/17/17 12/17/17 13:21 13:41 13:41 WBC 12.3 H RBC 4.26 L Hgb 14.3 Hct 41.5 MCV 97.3 H MCH 33.6 H MCHC 34.5 RDW 14.1 Plt Count 197 MPV 9.5 Neut % (Auto) 63.9 Lymph % (Auto) 17.2 L [place] % (Auto) 5.6 Eos % (Auto) 12.8 H Baso % (Auto) 0.5 Neut # (Auto) 7.9 H Lymph # (Auto) 2.1 [place] # (Auto) 0.7 Eos # (Auto) 1.6 H Baso # (Auto) 0.1 PT 11.6 INR 1.1 APTT 30 Sodium Potassium Chloride Carbon Dioxide Anion Gap BUN Creatinine Est GFR ( Amer) Est GFR (Non-Af Amer) POC Glucose (mg/dL) 133 H Random Glucose Calcium Total Bilirubin AST ALT Alkaline Phosphatase Total Creatine Kinase CK-MB (Mass) Troponin I Total Protein Albumin Globulin Albumin/Globulin Ratio Urine Color Urine Clarity Urine pH Ur Specific [place] Urine Protein Urine Glucose (UA) Urine Ketones Urine Blood Urine Nitrate Urine Bilirubin Urine Urobilinogen Ur Leukocyte Esterase Urine WBC (Auto) Ur Squamous Epith Cells 12/17/17 12/17/17 12/17/17 13:41 13:41 22:36 WBC RBC Hgb Hct MCV MCH MCHC RDW Plt Count MPV Neut % (Auto) Lymph % (Auto) [place] % (Auto) Eos % (Auto) Baso % (Auto) Neut # (Auto) Lymph # (Auto) [place] # (Auto) Eos # (Auto) Baso # (Auto) PT INR APTT Sodium 137 Potassium 4.0 Chloride 96 L Carbon Dioxide 26 Anion Gap 18 BUN 36 H Creatinine 2.8 H Est GFR ( Amer) 26 Est GFR (Non-Af Amer) 22 POC Glucose (mg/dL) Random Glucose 129 H Calcium 9.5 Total Bilirubin 1.0 AST 17 D ALT 18 L D Alkaline Phosphatase 123 Total Creatine Kinase 63 CK-MB (Mass) 0.83 Troponin I 0.0130 0.0320 Total Protein 8.0 Albumin 4.4 Globulin 3.6 Albumin/Globulin Ratio 1.2 Urine Color Yellow Urine Clarity Clear Urine pH 6.0 Ur Specific [place] 1.008 Urine Protein Negative Urine Glucose (UA) Normal Urine Ketones Negative Urine Blood Negative Urine Nitrate Negative Urine Bilirubin Negative Urine Urobilinogen Normal Ur Leukocyte Esterase Neg Urine WBC (Auto) < 1 Ur Squamous Epith Cells < 1 12/18/17 05:41 WBC RBC Hgb Hct MCV MCH MCHC RDW Plt Count MPV Neut % (Auto) Lymph % (Auto) [place] % (Auto) Eos % (Auto) Baso % (Auto) Neut # (Auto) Lymph # (Auto) [place] # (Auto) Eos # (Auto) Baso # (Auto) PT INR APTT Sodium Potassium Chloride Carbon Dioxide Anion Gap BUN Creatinine Est GFR ( Amer) Est GFR (Non-Af Amer) POC Glucose (mg/dL) Random Glucose Calcium Total Bilirubin AST ALT Alkaline Phosphatase Total Creatine Kinase 54 L CK-MB (Mass) 0.66 Troponin I 0.0250 Total Protein Albumin Globulin Albumin/Globulin Ratio Urine Color Urine Clarity Urine pH Ur Specific [place] Urine Protein Urine Glucose (UA) Urine Ketones Urine Blood Urine Nitrate Urine Bilirubin Urine Urobilinogen Ur Leukocyte Esterase Urine WBC (Auto) Ur Squamous Epith Cells - EKG Data EKG Interpreted by: Myself EKG shows normal: Sinus rhythm (isolated PVC) Assessment & Plan - Assessment and Plan (Free Text) Assessment: Diagnostic and data reviewed by me directly: 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
--- NOTE | 2017-12-18 13:51 | CP.PCM.CON ---
<Judah Murillo - Last Filed: 12/18/17 15:20> History of Present Illness - History of Present Illness History of Present Illness: 82 year old male with a past medical history of hypertension and dementia who was admitted for a syncopal episode. Per daughter at bedside, patient was sitting down at home and became lightheaded and felt like he would pass out. Patient was then brought in by family to the emergency room. Patient's daughter states he had a similar episode that occurred in June 2017. Patient denies any tongue biting, urinary or bowel incontinence, fevers, chills, headaches, chest pain, abdominal pain, changes in vision, or any other complaints. PMD: [place] Medical history: Hypertension, Dementia Medications: Metoprolol and an unknown other antihypertensive medication Allergies: Denies Social history: Former 20 year pack history of smoking. Denies illicit drug use. Review of Systems - Constitutional Constitutional: absent: Daytime Sleepiness, Frequent Falls, Headache, Night Sweats, Snoring, Weakness - EENT Eyes: absent: Blurred Vision, Discharge, Loss of Peripheral Vision, Sees Flashes, Loss of Vision Ears: absent: Ear Discharge, Disequilibrium, Dizziness Nose/Mouth/Throat: absent: Nasal Congestion, Nose Pain, Bleeding Gums, Mouth Pain, Tongue Swelling - Cardiovascular Cardiovascular: Syncope. absent: Chest Pain, Diaphoresis, Leg Edema, Orthopnea, Palpitations, Paroxysmal Nocturnal Dyspnea - Respiratory Respiratory: absent: Cough, Hemoptysis, Change in Mucous Color - Gastrointestinal Gastrointestinal: absent: Belching, Change in Stool Character, Dyspepsia, Loose Stools, Melena, Nausea - Genitourinary Genitourinary: absent: Difficulty Urinating, Nocturia - Musculoskeletal Musculoskeletal: absent: Arthralgias, Myalgias, Stiffness, Tingling - Neurological Neurological: absent: Paresthesias, Tingling, Tremor, Weakness, Other Visual Disturbances - Endocrine Endocrine: absent: Change in Body Appearance, Polydipsia, Polyphagia, Polyuria - Hematologic/Lymphatic Hematologic: absent: Easy Bleeding, Easy Bruising Past Patient History - Infectious Disease Hx of Infectious Diseases: None - Past Medical History & Family History Past Medical History?: Yes - Past Social History Smoking Status: Never Smoked - CARDIAC Hx Hypertension: Yes - PULMONARY Hx Respiratory Disorders: No - NEUROLOGICAL Hx Neurological Disorder: Yes Hx Dementia: Yes - HEENT Hx HEENT Problems: No - RENAL Hx Chronic Kidney Disease: Yes Hx Renal Failure: Yes - ENDOCRINE/METABOLIC Hx Hypothyroidism: Yes - HEMATOLOGICAL/ONCOLOGICAL Hx Blood Disorders: No - INTEGUMENTARY Hx Dermatological Problems: No - MUSCULOSKELETAL/RHEUMATOLOGICAL Hx Arthritis: Yes - GASTROINTESTINAL Hx Gastrointestinal Disorders: No - GENITOURINARY/GYNECOLOGICAL Hx Genitourinary Disorders: No - PSYCHIATRIC Hx Psychophysiologic Disorder: No Hx Substance Use: No - SURGICAL HISTORY Hx Surgeries: No - ANESTHESIA Hx Anesthesia: No Hx Anesthesia Reactions: No Hx Malignant Hyperthermia: No Has any member of the family had a problem w/ anesthesia?: No Meds Allergies/Adverse Reactions: Allergies Allergy/AdvReac Type Severity Reaction Status Date / Time No Known Allergies Allergy Verified 12/17/17 13:17 - Medications Medications: Current Medications Allopurinol (Zyloprim) 100 mg PO DAILY [facility] Last Admin: 12/18/17 09:56 Dose: 100 mg Enoxaparin Sodium (Lovenox) 30 mg SC DAILY [facility] Ergocalciferol (Drisdol 50,000 Intl Units Cap) 1 cap PO Q7D [facility] Last Admin: 12/17/17 18:13 Dose: 1 cap Fluticasone/Vilanterol (Breo Ellipta 100-25 Mcg Inh) 1 puff INH RQ24 [facility] Last Admin: 12/18/17 11:53 Dose: 1 puff Furosemide (Lasix) 20 mg PO DAILY [facility] Last Admin: 12/18/17 09:57 Dose: 20 mg Hydralazine HCl (Apresoline) 50 mg PO TID [facility] Last Admin: 12/18/17 13:34 Dose: Not Given Metoprolol Tartrate (Lopressor) 50 mg PO BID [facility] Last Admin: 12/18/17 09:51 Dose: 50 mg Pantoprazole Sodium (Protonix Ec Tab) 40 mg PO DAILY [facility] Last Admin: 12/18/17 09:57 Dose: 40 mg Tamsulosin HCl (Flomax) 0.4 mg PO DAILY [facility] Last Admin: 12/18/17 09:51 Dose: 0.4 mg Physical Exam - Head Exam Head Exam: ATRAUMATIC, NORMAL INSPECTION - Eye Exam Eye Exam: EOMI, Normal appearance, PERRL Pupil Exam: NORMAL ACCOMODATION - ENT Exam ENT Exam: Mucous Membranes Moist, Normal Oropharynx - Neck Exam Neck exam: Negative for: Meningismus - Respiratory Exam Respiratory Exam: Clear to Auscultation Bilateral, NORMAL BREATHING PATTERN. absent: Respiratory Distress - Cardiovascular Exam Cardiovascular Exam: REGULAR RHYTHM, +S1, +S2 - GI/Abdominal Exam GI & Abdominal Exam: Normal Bowel Sounds, Soft. absent: Organomegaly, Tenderness - Neurological Exam Neurological exam: Alert, Normal Gait, Reflexes Normal Additional comments: dysmetria on left >right - Psychiatric Exam Psychiatric exam: Normal Affect, Normal Mood - Skin Skin Exam: Dry, Intact Results - Vital Signs Recent Vital Signs: Last Vital Signs Temp 97.5 F L 12/18/17 07:00 Pulse 55 L 12/18/17 13:34 Resp 20 12/18/17 07:00 BP 145/69 12/18/17 13:34 Pulse Ox 95 12/18/17 11:51 - Labs Result Diagrams: 12/17/17 13:41 12/17/17 13:41 Labs: Laboratory Results - last 24 hr 12/17/17 12/17/17 12/17/17 13:21 13:41 13:41 WBC 12.3 H RBC 4.26 L Hgb 14.3 Hct 41.5 MCV 97.3 H MCH 33.6 H MCHC 34.5 RDW 14.1 Plt Count 197 MPV 9.5 Neut % (Auto) 63.9 Lymph % (Auto) 17.2 L [place] % (Auto) 5.6 Eos % (Auto) 12.8 H Baso % (Auto) 0.5 Neut # (Auto) 7.9 H Lymph # (Auto) 2.1 [place] # (Auto) 0.7 Eos # (Auto) 1.6 H Baso # (Auto) 0.1 PT 11.6 INR 1.1 APTT 30 Sodium Potassium Chloride Carbon Dioxide Anion Gap BUN Creatinine Est GFR ( Amer) Est GFR (Non-Af Amer) POC Glucose (mg/dL) 133 H Random Glucose Calcium Total Bilirubin AST ALT Alkaline Phosphatase Total Creatine Kinase CK-MB (Mass) Troponin I Total Protein Albumin Globulin Albumin/Globulin Ratio Urine Color Urine Clarity Urine pH Ur Specific [place] Urine Protein Urine Glucose (UA) Urine Ketones Urine Blood Urine Nitrate Urine Bilirubin Urine Urobilinogen Ur Leukocyte Esterase Urine WBC (Auto) Ur Squamous Epith Cells 12/17/17 12/17/17 12/17/17 13:41 13:41 22:36 WBC RBC Hgb Hct MCV MCH MCHC RDW Plt Count MPV Neut % (Auto) Lymph % (Auto) [place] % (Auto) Eos % (Auto) Baso % (Auto) Neut # (Auto) Lymph # (Auto) [place] # (Auto) Eos # (Auto) Baso # (Auto) PT INR APTT Sodium 137 Potassium 4.0 Chloride 96 L Carbon Dioxide 26 Anion Gap 18 BUN 36 H Creatinine 2.8 H Est GFR ( Amer) 26 Est GFR (Non-Af Amer) 22 POC Glucose (mg/dL) Random Glucose 129 H Calcium 9.5 Total Bilirubin 1.0 AST 17 D ALT 18 L D Alkaline Phosphatase 123 Total Creatine Kinase 63 CK-MB (Mass) 0.83 Troponin I 0.0130 0.0320 Total Protein 8.0 Albumin 4.4 Globulin 3.6 Albumin/Globulin Ratio 1.2 Urine Color Yellow Urine Clarity Clear Urine pH 6.0 Ur Specific [place] 1.008 Urine Protein Negative Urine Glucose (UA) Normal Urine Ketones Negative Urine Blood Negative Urine Nitrate Negative Urine Bilirubin Negative Urine Urobilinogen Normal Ur Leukocyte Esterase Neg Urine WBC (Auto) < 1 Ur Squamous Epith Cells < 1 12/18/17 05:41 WBC RBC Hgb Hct MCV MCH MCHC RDW Plt Count MPV Neut % (Auto) Lymph % (Auto) [place] % (Auto) Eos % (Auto) Baso % (Auto) Neut # (Auto) Lymph # (Auto) [place] # (Auto) Eos # (Auto) Baso # (Auto) PT INR APTT Sodium Potassium Chloride Carbon Dioxide Anion Gap BUN Creatinine Est GFR ( Amer) Est GFR (Non-Af Amer) POC Glucose (mg/dL) Random Glucose Calcium Total Bilirubin AST ALT Alkaline Phosphatase Total Creatine Kinase 54 L CK-MB (Mass) 0.66 Troponin I 0.0250 Total Protein Albumin Globulin Albumin/Globulin Ratio Urine Color Urine Clarity Urine pH Ur Specific [place] Urine Protein Urine Glucose (UA) Urine Ketones Urine Blood Urine Nitrate Urine Bilirubin Urine Urobilinogen Ur Leukocyte Esterase Urine WBC (Auto) Ur Squamous Epith Cells Assessment & Plan - Assessment and Plan (Free Text) Assessment: 82 year old male with a past medical history of hypertension and dementia admitted for syncopal episode. Plan: 1. 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 Help appreciated. 2. Hypertension Continue home medications: Lasix 20 mg PO Daily Hydralazine 50mg PO TID Metoprolol 50mg PO BID Holding BP Parameters. ppx Protonix 40mg PO DAILY Lovenox 30mg SC Daily Plan discussed with Dr. David Murillo, PGY-2 <Elaine Guerra - Last Filed: 12/18/17 15:59> History of Present Illness - History of Present Illness History of Present Illness: On exam: Normal neurological examination, except for mild anomia and decreased ability to remember remote and recent objects. 0/3 at 5 minutes. No ataxia, no dysmetria. walked well, with no rhomberg. Meds - Medications Medications: Current Medications Allopurinol (Zyloprim) 100 mg PO DAILY [facility] Last Admin: 12/18/17 09:56 Dose: 100 mg Enoxaparin Sodium (Lovenox) 30 mg SC DAILY [facility] Last Admin: 12/18/17 14:45 Dose: 30 mg Ergocalciferol (Drisdol 50,000 Intl Units Cap) 1 cap PO Q7D [facility] Last Admin: 12/17/17 18:13 Dose: 1 cap Fluticasone/Vilanterol (Breo Ellipta 100-25 Mcg Inh) 1 puff INH RQ24 [facility] Last Admin: 12/18/17 11:53 Dose: 1 puff Furosemide (Lasix) 20 mg PO DAILY [facility] Last Admin: 12/18/17 09:57 Dose: 20 mg Hydralazine HCl (Apresoline) 50 mg PO TID [facility] Last Admin: 12/18/17 13:34 Dose: Not Given Metoprolol Tartrate (Lopressor) 50 mg PO BID [facility] Last Admin: 12/18/17 09:51 Dose: 50 mg Pantoprazole Sodium (Protonix Ec Tab) 40 mg PO DAILY [facility] Last Admin: 12/18/17 09:57 Dose: 40 mg Tamsulosin HCl (Flomax) 0.4 mg PO DAILY [facility] Last Admin: 12/18/17 09:51 Dose: 0.4 mg Results - Vital Signs Recent Vital Signs: Last Vital Signs Temp 97.5 F L 12/18/17 07:00 Pulse 59 L 12/18/17 15:29 Resp 20 12/18/17 07:00 BP 145/69 12/18/17 13:34 Pulse Ox 95 12/18/17 11:51 - Labs Result Diagrams: 12/17/17 13:41 12/17/17 13:41 Labs: Laboratory Results - last 24 hr 12/17/17 12/18/17 22:36 05:41 Total Creatine Kinase 63 54 L CK-MB (Mass) 0.83 0.66 Troponin I 0.0320 0.0250 Assessment & Plan - Assessment and Plan (Free Text) Plan: Assessment: 82 yr old male with dementia, and syncopal spell and normal neurological examination who will need syncopal workup but not likely to have a stroke or seizure. Plan as above. 1. CTA head and neck. Thank you Dr. guerra neurology
[2017-12-18] MEDS: Enoxaparin 30 mg Syringe SC SCH (14:45)
--- NOTE | 2017-12-18 17:32 | CP.PCM.PN ---
Subjective - Date & Time of Evaluation Date of Evaluation: 12/18/17 Time of Evaluation: 09:30 - Subjective Subjective: clinically same Objective - Vital Signs/Intake and Output Vital Signs (last 24 hours): Temp Pulse Resp BP Pulse Ox 97.8 F 54 L 20 140/74 98 12/18/17 15:00 12/18/17 17:14 12/18/17 15:00 12/18/17 17:14 12/18/17 15:00 Intake and Output: 12/18/17 12/18/17 06:59 18:59 Intake Total 480 Output Total 200 Balance 280 - Medications Medications: Current Medications Allopurinol (Zyloprim) 100 mg PO DAILY [facility] Last Admin: 12/18/17 09:56 Dose: 100 mg Enoxaparin Sodium (Lovenox) 30 mg SC DAILY [facility] Last Admin: 12/18/17 14:45 Dose: 30 mg Ergocalciferol (Drisdol 50,000 Intl Units Cap) 1 cap PO Q7D [facility] Last Admin: 12/17/17 18:13 Dose: 1 cap Fluticasone/Vilanterol (Breo Ellipta 100-25 Mcg Inh) 1 puff INH RQ24 [facility] Last Admin: 12/18/17 11:53 Dose: 1 puff Furosemide (Lasix) 20 mg PO DAILY [facility] Last Admin: 12/18/17 09:57 Dose: 20 mg Hydralazine HCl (Apresoline) 50 mg PO TID [facility] Last Admin: 12/18/17 17:14 Dose: Not Given Metoprolol Tartrate (Lopressor) 50 mg PO BID [facility] Last Admin: 12/18/17 17:15 Dose: Not Given Pantoprazole Sodium (Protonix Ec Tab) 40 mg PO DAILY [facility] Last Admin: 12/18/17 09:57 Dose: 40 mg Tamsulosin HCl (Flomax) 0.4 mg PO DAILY [facility] Last Admin: 12/18/17 09:51 Dose: 0.4 mg - Labs Labs: 12/17/17 13:41 12/17/17 13:41 PT 11.6 SECONDS (9.7-12.2) 12/17/17 13:41 INR 1.1 12/17/17 13:41 APTT 30 SECONDS (21-34) 12/17/17 13:41 - Constitutional Appears: Well - Head Exam Head Exam: ATRAUMATIC, NORMAL INSPECTION, NORMOCEPHALIC - Eye Exam Eye Exam: EOMI, Normal appearance, PERRL Pupil Exam: NORMAL ACCOMODATION, PERRL - Neck Exam Neck Exam: Full ROM, Normal Inspection. absent: Lymphadenopathy - Respiratory Exam Respiratory Exam: Decreased Breath Sounds - Cardiovascular Exam Cardiovascular Exam: REGULAR RHYTHM, +S1, +S2 - GI/Abdominal Exam GI & Abdominal Exam: Soft, Diminished Bowel Sounds - Rectal Exam Rectal Exam: Deferred
--- NOTE | 2017-12-18 18:17 | CP.PCM.CON ---
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 Hypertension control with meds as ordered. Patient not on ACEI/ARB as due to advanced CKD continue with flomax 0.4 mg/day on weekly Vit D supplements pt on lasix 20 mg/day, can continue with same neuro and cardio following Dose meds/antibiotics for reduced GFR. Avoid fleets enema/magnesium based laxatives. Avoid nephrotoxins/NSAIDs/ iodinated contrast (unless needed john gently) Glycemic control Further work up/management as per primary team Thanks for allowing me to participate in care of your patient. Will follow patient with you. Please call if any Qs. had lelaw team Dr Yuan Platt Office: [phone] CC: syncope reason for consult: CKD HPI: Pt is a 82 M with hx of hypertension (years) , dementia, CKD 4 with baseline cr 2.6 admitted to [facility] june 2017 for CHF,CHESTER (peaked cr 3.7) came to ER with c/o syncope. feels better now, in usual health. denies SOB, chest pain or urine complaints Denies OTC/herbal meds/NSAIDs now. hx of nsaids in past as meloxicam No recent iodinated contrast exposure. ex smoker. ROS: Cardiovascular: No chest pain. Pulmonary: No shortness of breath Gastrointestinal: denies abdominal pain No nausea. No vomiting. Genitourinary: No pain while urinating. Denies blood in urine. pt with dementia, ROS overall limited Rest all other negative except as mentioned in HPI Physical Examination: General Appearance: Comfortable, in no acute respiratory distress, co-operative . Vitals reviewed and noted as below Head; Atraumatic, normocephalic ENT: no ulcers no thrush. Tongue is midline. Oropharynx: no rash or ulcers. EYES: Pupils are equal, round and reactive to light accommodation. Eye muscles and extraocular movement intact. Sclera is anicteric. Neck; supple no lymphadenopathy, no thyromegaly or bruit Lungs: Normal respiratory rate/effort. Breath sounds bilateral equal and few basal crackles Heart: Normal rate. s1s2 normal. No rub or gallop. Extremities: no edema. No varicose veins Neurological: Patient is alert, awake and demented. No focal deficit. Strength bilateral appropriate and equal Skin: Warm and dry. Normal turgor. No rash. Palpitation: Normal elasticity for age Abdomen: Abdomen is soft. Bowel sounds +. There is no abdominal tenderness, no guarding/rigidity or organomegaly Psych: normal insight and normal affect/mood MSK: no joint tenderness or swelling. Digits and nails normal, no deformity : kidney or bladder not palpable Labs/imaging reviewed. Past medical history, past surgical history, family history, social history, allergy reviewed and noted as below Family Hx: no hx of CKD. Non contributory work up: Labs 07/19/17; sodium 136 potassium 5 bicarbonate 20 creatinine 3.3 calcium 7.8 phosphorus 3.8 vitamin D 17 PTH 83 hemoglobin 12.5 UA 1+ protein Spot protein creatinine ratio 150 Spot alb/cr 68 Renal sonogram right renal atrophy and right renal simple cyst. PVR 42 mL Echocardiogram normal LV function 08/22/17: urine pro/cr 251 mg/g, alb/cr 70 mg/g , UA no pro/blood Na 138 K 4.9 Bicarb 24 BUN/Cr 30/3 (GFR 18) Hb 12.8 10/17/17: Phos 2.6 Na 139 K 4.6 Bicarb 21 Ca 9 BUN/cr 37/2.62 (GFR 22) UA trace protein Hb 12.5 Past Patient History - Infectious Disease Hx of Infectious Diseases: None - Past Medical History & Family History Past Medical History?: Yes - Past Social History Smoking Status: Never Smoked - CARDIAC Hx Hypertension: Yes - PULMONARY Hx Respiratory Disorders: No - NEUROLOGICAL Hx Neurological Disorder: Yes Hx Dementia: Yes - HEENT Hx HEENT Problems: No - RENAL Hx Chronic Kidney Disease: Yes Hx Renal Failure: Yes - ENDOCRINE/METABOLIC Hx Hypothyroidism: Yes - HEMATOLOGICAL/ONCOLOGICAL Hx Blood Disorders: No - INTEGUMENTARY Hx Dermatological Problems: No - MUSCULOSKELETAL/RHEUMATOLOGICAL Hx Arthritis: Yes - GASTROINTESTINAL Hx Gastrointestinal Disorders: No - GENITOURINARY/GYNECOLOGICAL Hx Genitourinary Disorders: No - PSYCHIATRIC Hx Psychophysiologic Disorder: No Hx Substance Use: No - SURGICAL HISTORY Hx Surgeries: No - ANESTHESIA Hx Anesthesia: No Hx Anesthesia Reactions: No Hx Malignant Hyperthermia: No Has any member of the family had a problem w/ anesthesia?: No Meds Allergies/Adverse Reactions: Allergies Allergy/AdvReac Type Severity Reaction Status Date / Time No Known Allergies Allergy Verified 12/17/17 13:17 - Medications Medications: Current Medications Allopurinol (Zyloprim) 100 mg PO DAILY [facility] Last Admin: 12/18/17 09:56 Dose: 100 mg Enoxaparin Sodium (Lovenox) 30 mg SC DAILY [facility] Last Admin: 12/18/17 14:45 Dose: 30 mg Ergocalciferol (Drisdol 50,000 Intl Units Cap) 1 cap PO Q7D [facility] Last Admin: 12/17/17 18:13 Dose: 1 cap Fluticasone/Vilanterol (Breo Ellipta 100-25 Mcg Inh) 1 puff INH RQ24 [facility] Last Admin: 12/18/17 11:53 Dose: 1 puff Furosemide (Lasix) 20 mg PO DAILY [facility] Last Admin: 12/18/17 09:57 Dose: 20 mg Hydralazine HCl (Apresoline) 50 mg PO TID [facility] Last Admin: 12/18/17 17:14 Dose: Not Given Metoprolol Tartrate (Lopressor) 50 mg PO BID [facility] Last Admin: 12/18/17 17:15 Dose: Not Given Pantoprazole Sodium (Protonix Ec Tab) 40 mg PO DAILY [facility] Last Admin: 12/18/17 09:57 Dose: 40 mg Tamsulosin HCl (Flomax) 0.4 mg PO DAILY [facility] Last Admin: 12/18/17 09:51 Dose: 0.4 mg Results - Vital Signs Recent Vital Signs: Last Vital Signs Temp 97.8 F 12/18/17 15:00 Pulse 54 L 12/18/17 17:14 Resp 20 12/18/17 15:00 BP 140/74 12/18/17 17:14 Pulse Ox 98 12/18/17 15:00 - Labs Result Diagrams: 12/17/17 13:41 12/17/17 13:41 Labs: Laboratory Results - last 24 hr 12/17/17 12/18/17 22:36 05:41 Total Creatine Kinase 63 54 L CK-MB (Mass) 0.83 0.66 Troponin I 0.0320 0.0250
--- NOTE | 2017-12-18 18:38 | CARD ---
APPROVED REPORT Date of service: 12/17/2017 EKG Measurement Heart [id number] <Conclusion> Sinus rhythm with occasional premature ventricular complexes Possible Left atrial enlargement Left anterior fascicular block Prolonged QT Abnormal ECG
[2017-12-19] MEDS: Fluticasone-Vilanterol 100/25mcg Diskus INH SCH (08:26)
[2017-12-19] MEDS: Enoxaparin 30 mg Syringe SC SCH (10:33)
[2017-12-19] MEDS: Pantoprazole 40 mg EC Tab PO SCH (10:33)
--- NOTE | 2017-12-19 13:40 | CP.PCM.PN ---
Subjective - Date & Time of Evaluation Date of Evaluation: 12/19/17 Time of Evaluation: 13:39 - Subjective Subjective: Events reviewed Objective - Vital Signs/Intake and Output Vital Signs (last 24 hours): Temp Pulse Resp BP Pulse Ox 98.2 F 65 20 166/75 H 96 12/19/17 08:01 12/19/17 08:01 12/19/17 08:01 12/19/17 10:33 12/19/17 08:01 Intake and Output: 12/19/17 12/19/17 06:59 18:59 Intake Total 520 Output Total 1000 Balance -480 - Medications Medications: Current Medications Allopurinol (Zyloprim) 100 mg PO DAILY [facility] Last Admin: 12/19/17 10:33 Dose: 100 mg Enoxaparin Sodium (Lovenox) 30 mg SC DAILY [facility] Last Admin: 12/19/17 10:33 Dose: 30 mg Ergocalciferol (Drisdol 50,000 Intl Units Cap) 1 cap PO Q7D [facility] Last Admin: 12/17/17 18:13 Dose: 1 cap Fluticasone/Vilanterol (Breo Ellipta 100-25 Mcg Inh) 1 puff INH RQ24 [facility] Last Admin: 12/19/17 08:26 Dose: 1 puff Furosemide (Lasix) 20 mg PO DAILY [facility] Last Admin: 12/19/17 10:33 Dose: 20 mg Hydralazine HCl (Apresoline) 50 mg PO TID [facility] Last Admin: 12/19/17 10:35 Dose: 50 mg Metoprolol Tartrate (Lopressor) 50 mg PO BID [facility] Last Admin: 12/19/17 10:33 Dose: 50 mg Pantoprazole Sodium (Protonix Ec Tab) 40 mg PO DAILY [facility] Last Admin: 12/19/17 10:33 Dose: 40 mg Tamsulosin HCl (Flomax) 0.4 mg PO DAILY [facility] Last Admin: 12/19/17 10:33 Dose: 0.4 mg - Labs Labs: 12/17/17 13:41 12/17/17 13:41 PT 11.6 SECONDS (9.7-12.2) 12/17/17 13:41 INR 1.1 12/17/17 13:41 APTT 30 SECONDS (21-34) 12/17/17 13:41 - Constitutional Appears: Well, Non-toxic - Respiratory Exam Respiratory Exam: Clear to Ausculation Bilateral, NORMAL BREATHING PATTERN - Cardiovascular Exam Cardiovascular Exam: REGULAR RHYTHM, RRR, +S1, +S2. absent: JVD - GI/Abdominal Exam GI & Abdominal Exam: Normal Bowel Sounds. 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
--- NOTE | 2017-12-19 16:13 | CP.PCM.PN ---
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 Hypertension control with meds as ordered. Patient not on ACEI/ARB as due to advanced CKD continue with flomax 0.4 mg/day on weekly Vit D supplements pt on lasix 20 mg/day, can continue with same neuro and cardio following Dose meds/antibiotics for reduced GFR. Avoid fleets enema/magnesium based laxatives. Avoid nephrotoxins/NSAIDs/ iodinated contrast (unless needed john gently) Glycemic control Further work up/management as per primary team Thanks for allowing me to participate in care of your patient. Will follow patient with you. Please call if any Qs. had d.w team Dr Yuan Platt Office: [phone] CC: syncope reason for consult: CKD HPI: Pt is a 82 M with hx of hypertension (years) , dementia, CKD 4 with baseline cr 2.6 admitted to [facility] june 2017 for CHF,[place] (peaked cr 3.7) came to ER with c/o syncope. feels better now, in usual health. denies SOB, chest pain or urine complaints Denies OTC/herbal meds/NSAIDs now. hx of nsaids in past as meloxicam No recent iodinated contrast exposure. ex smoker. ROS: Cardiovascular: No chest pain. Pulmonary: No shortness of breath Gastrointestinal: denies abdominal pain No nausea. No vomiting. Genitourinary: No pain while urinating. Denies blood in urine. pt with dementia, ROS overall limited Rest all other negative except as mentioned in HPI Physical Examination: General Appearance: Comfortable, in no acute respiratory distress, co-operative . Vitals reviewed and noted as below Head; Atraumatic, normocephalic ENT: no ulcers no thrush. Tongue is midline. Oropharynx: no rash or ulcers. EYES: Pupils are equal, round and reactive to light accommodation. Eye muscles and extraocular movement intact. Sclera is anicteric. Neck; supple no lymphadenopathy, no thyromegaly or bruit Lungs: Normal respiratory rate/effort. Breath sounds bilateral equal and clear Heart: Normal rate. s1s2 normal. No rub or gallop. Extremities: no edema. No varicose veins Neurological: Patient is alert, awake and demented. No focal deficit. Strength bilateral appropriate and equal Skin: Warm and dry. Normal turgor. No rash. Palpitation: Normal elasticity for age Abdomen: Abdomen is soft. Bowel sounds +. There is no abdominal tenderness, no guarding/rigidity or organomegaly Psych: normal insight and normal affect/mood MSK: no joint tenderness or swelling. Digits and nails normal, no deformity : kidney or bladder not palpable Labs/imaging reviewed. Past medical history, past surgical history, family history, social history, allergy reviewed and noted as below Family Hx: no hx of CKD. Non contributory work up: Labs 07/19/17; sodium 136 potassium 5 bicarbonate 20 creatinine 3.3 calcium 7.8 phosphorus 3.8 vitamin D 17 PTH 83 hemoglobin 12.5 UA 1+ protein Spot protein creatinine ratio 150 Spot alb/cr 68 Renal sonogram right renal atrophy and right renal simple cyst. PVR 42 mL Echocardiogram normal LV function 08/22/17: urine pro/cr 251 mg/g, alb/cr 70 mg/g , UA no pro/blood Na 138 K 4.9 Bicarb 24 BUN/Cr 30/3 (GFR 18) Hb 12.8 10/17/17: Phos 2.6 Na 139 K 4.6 Bicarb 21 Ca 9 BUN/cr 37/2.62 (GFR 22) UA trace protein Hb 12.5 Objective - Vital Signs/Intake and Output Vital Signs (last 24 hours): Temp Pulse Resp BP Pulse Ox 97.3 F L 59 L 20 131/62 96 12/19/17 15:00 12/19/17 15:00 12/19/17 15:00 12/19/17 15:00 12/19/17 15:00 Intake and Output: 12/19/17 12/19/17 06:59 18:59 Intake Total 520 800 Output Total 1000 Balance -480 800 - Medications Medications: Current Medications Allopurinol (Zyloprim) 100 mg PO DAILY [facility] Last Admin: 12/19/17 10:33 Dose: 100 mg Enoxaparin Sodium (Lovenox) 30 mg SC DAILY [facility] Last Admin: 12/19/17 10:33 Dose: 30 mg Ergocalciferol (Drisdol 50,000 Intl Units Cap) 1 cap PO Q7D [facility] Last Admin: 12/17/17 18:13 Dose: 1 cap Fluticasone/Vilanterol (Breo Ellipta 100-25 Mcg Inh) 1 puff INH RQ24 [facility] Last Admin: 12/19/17 08:26 Dose: 1 puff Furosemide (Lasix) 20 mg PO DAILY [facility] Last Admin: 12/19/17 10:33 Dose: 20 mg Hydralazine HCl (Apresoline) 50 mg PO TID [facility] Last Admin: 12/19/17 14:34 Dose: 50 mg Metoprolol Tartrate (Lopressor) 50 mg PO BID [facility] Last Admin: 12/19/17 10:33 Dose: 50 mg Pantoprazole Sodium (Protonix Ec Tab) 40 mg PO DAILY [facility] Last Admin: 12/19/17 10:33 Dose: 40 mg Tamsulosin HCl (Flomax) 0.4 mg PO DAILY [facility] Last Admin: 12/19/17 10:33 Dose: 0.4 mg - Labs Labs: 12/17/17 13:41 12/17/17 13:41 PT 11.6 SECONDS (9.7-12.2) 12/17/17 13:41 INR 1.1 12/17/17 13:41 APTT 30 SECONDS (21-34) 12/17/17 13:41
--- NOTE | 2017-12-19 18:29 | CP.PCM.PN ---
Subjective - Date & Time of Evaluation Date of Evaluation: 12/19/17 Time of Evaluation: 09:15 - Subjective Subjective: clinically same Objective - Vital Signs/Intake and Output Vital Signs (last 24 hours): Temp Pulse Resp BP Pulse Ox 97.3 F L 62 20 135/67 96 12/19/17 15:00 12/19/17 17:24 12/19/17 15:00 12/19/17 17:24 12/19/17 15:00 Intake and Output: 12/19/17 12/19/17 06:59 18:59 Intake Total 520 800 Output Total 1000 Balance -480 800 - Medications Medications: Current Medications Allopurinol (Zyloprim) 100 mg PO DAILY [facility] Last Admin: 12/19/17 10:33 Dose: 100 mg Enoxaparin Sodium (Lovenox) 30 mg SC DAILY [facility] Last Admin: 12/19/17 10:33 Dose: 30 mg Ergocalciferol (Drisdol 50,000 Intl Units Cap) 1 cap PO Q7D [facility] Last Admin: 12/17/17 18:13 Dose: 1 cap Fluticasone/Vilanterol (Breo Ellipta 100-25 Mcg Inh) 1 puff INH RQ24 [facility] Last Admin: 12/19/17 08:26 Dose: 1 puff Furosemide (Lasix) 20 mg PO DAILY [facility] Last Admin: 12/19/17 10:33 Dose: 20 mg Hydralazine HCl (Apresoline) 50 mg PO TID [facility] Last Admin: 12/19/17 17:23 Dose: 50 mg Metoprolol Tartrate (Lopressor) 50 mg PO BID [facility] Last Admin: 12/19/17 17:23 Dose: 50 mg Pantoprazole Sodium (Protonix Ec Tab) 40 mg PO DAILY [facility] Last Admin: 12/19/17 10:33 Dose: 40 mg Tamsulosin HCl (Flomax) 0.4 mg PO DAILY [facility] Last Admin: 12/19/17 10:33 Dose: 0.4 mg - Labs Labs: 12/17/17 13:41 12/17/17 13:41 PT 11.6 SECONDS (9.7-12.2) 12/17/17 13:41 INR 1.1 12/17/17 13:41 APTT 30 SECONDS (21-34) 12/17/17 13:41
[2017-12-20 08:13] VITALS: O2SAT 95
[2017-12-20] MEDS: Fluticasone-Vilanterol 100/25mcg Diskus INH SCH (08:46)
[2017-12-20] MEDS: Pantoprazole 40 mg EC Tab PO SCH (09:59)
[2017-12-20] MEDS: Enoxaparin 30 mg Syringe SC SCH (09:59)
--- NOTE | 2017-12-20 10:46 | CP.PCM.PN ---
Subjective - Date & Time of Evaluation Date of Evaluation: 12/20/17 Time of Evaluation: 10:44 - Subjective Subjective: No new complaints No dizziness, CP or SOB No fevers, chills No N/V A&Ox3 Objective - Vital Signs/Intake and Output Vital Signs (last 24 hours): Temp Pulse Resp BP Pulse Ox 98.6 F 59 L 20 149/70 95 12/20/17 08:13 12/20/17 08:13 12/20/17 08:13 12/20/17 09:59 12/20/17 08:13 Intake and Output: 12/20/17 12/20/17 06:59 18:59 Intake Total 500 Balance 500 - Medications Medications: Current Medications Allopurinol (Zyloprim) 100 mg PO DAILY [facility] Last Admin: 12/20/17 09:59 Dose: 100 mg Enoxaparin Sodium (Lovenox) 30 mg SC DAILY [facility] Last Admin: 12/20/17 09:59 Dose: 30 mg Ergocalciferol (Drisdol 50,000 Intl Units Cap) 1 cap PO Q7D [facility] Last Admin: 12/17/17 18:13 Dose: 1 cap Fluticasone/Vilanterol (Breo Ellipta 100-25 Mcg Inh) 1 puff INH RQ24 [facility] Last Admin: 12/20/17 08:46 Dose: 1 puff Furosemide (Lasix) 20 mg PO DAILY [facility] Last Admin: 12/20/17 09:59 Dose: 20 mg Hydralazine HCl (Apresoline) 50 mg PO TID [facility] Last Admin: 12/20/17 09:59 Dose: 50 mg Metoprolol Tartrate (Lopressor) 50 mg PO BID [facility] Last Admin: 12/20/17 09:59 Dose: 50 mg Pantoprazole Sodium (Protonix Ec Tab) 40 mg PO DAILY [facility] Last Admin: 12/20/17 09:59 Dose: 40 mg Tamsulosin HCl (Flomax) 0.4 mg PO DAILY [facility] Last Admin: 12/20/17 09:59 Dose: 0.4 mg - Labs Labs: 12/17/17 13:41 12/17/17 13:41 PT 11.6 SECONDS (9.7-12.2) 12/17/17 13:41 INR 1.1 12/17/17 13:41 APTT 30 SECONDS (21-34) 12/17/17 13:41 - Constitutional Appears: No Acute Distress - Head Exam Head Exam: ATRAUMATIC, NORMAL INSPECTION, NORMOCEPHALIC - Eye Exam Eye Exam: EOMI, Normal appearance, PERRL - ENT Exam ENT Exam: Mucous Membranes Moist, Normal Exam - Neck Exam Neck Exam: Full ROM - Respiratory Exam Respiratory Exam: Clear to Ausculation Bilateral, NORMAL BREATHING PATTERN - Cardiovascular Exam Cardiovascular Exam: REGULAR RHYTHM, +S1, +S2. absent: Murmur - Extremities Exam Extremities Exam: Full ROM. 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 * No clinical findings to suggest cardiac/arryhthmogenic cause HTN > stable on current meds > can consider norvasc 5 if needed CKD > Nephrology eval noted: CKD IV: YUAN-I, ARB and NSAIDS avoided > monitor lytes
[2017-12-20 14:23] LABS: BASO # 0.1 K/uL (0.0-0.2); BASO % 0.9 % (0.0-2.0); EOS # 2.2 K/uL (0.0-0.7); EOS % 23.1 % (0.0-4.0); HEMOGLOBIN 14.3 g/dL (12.0-18.0); LYMPH # 2.4 K/uL (1.0-4.3); LYMPH % 25.1 % (20.0-40.0); MEAN CELL VOLUME 98.8 fL (80.0-94.0); MEAN CORPUSCULAR HEMOGLOBIN 33.5 pg (27.0-31.0); MEAN CORPUSCULAR HGB CONC 33.9 g/dL (33.0-37.0); MEAN PLATELET VOLUME 9.9 fL (7.2-11.7); MONO # 0.7 K/uL (0.0-0.8); MONO % 6.9 % (0.0-10.0); NEUT # 4.2 K/uL (1.8-7.0); PLATELET COUNT 186 K/uL (130-400); RBC 4.27 Mil/uL (4.40-5.90); RED CELL DISTRIBUTION WIDTH 14.2 % (11.5-14.5); WHITE BLOOD COUNT 9.5 K/uL (4.8-10.8)
[2017-12-20 14:50] LABS: ALB/GLOB RATIO 1.3 (1.0-2.1); ALBUMIN 4.5 g/dL (3.5-5.0); CALCIUM 9.4 mg/dl (8.6-10.4); EOSINOPHIL 18 % (0-4); LYMPHOCYTE 24 % (20-40); MONOCYTE 8 % (0-10); NEUTROPHIL 50 % (50-75); TOTAL CELLS COUNTED 100
[2017-12-20 14:51] LABS: PLATELET ESTIMATE NORMAL (NORMAL)
--- NOTE | 2017-12-20 15:14 | CP.PCM.PN ---
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 Hypertension control with meds as ordered. Patient not on ACEI/ARB as due to advanced CKD continue with flomax 0.4 mg/day on weekly Vit D supplements pt on lasix 20 mg/day, change to q2 days repeat bladder sono neuro and cardio following Dose meds/antibiotics for reduced GFR. Avoid fleets enema/magnesium based laxatives. Avoid nephrotoxins/NSAIDs/ iodinated contrast (unless needed emergently) Glycemic control Further work up/management as per primary team Thanks for allowing me to participate in care of your patient. Will follow patient with you. Please call if any Qs. had d/w team Dr Yuan Platt Office: [phone] CC: syncope reason for consult: CKD HPI: Pt is a 82 M with hx of hypertension (years) , dementia, CKD 4 with baseline cr 2.6 admitted to [facility] june 2017 for CHF,CHESTER (peaked cr 3.7) came to ER with c/o syncope. feels better now, in usual health. denies SOB, chest pain or urine complaints Denies OTC/herbal meds/NSAIDs now. hx of nsaids in past as meloxicam No recent iodinated contrast exposure. ex smoker. ROS: Cardiovascular: No chest pain. Pulmonary: No shortness of breath Gastrointestinal: denies abdominal pain No nausea. No vomiting. Genitourinary: No pain while urinating. Denies blood in urine. pt with dementia, ROS overall limited Rest all other negative except as mentioned in HPI Physical Examination: General Appearance: Comfortable, in no acute respiratory distress, co-operative . Vitals reviewed and noted as below Head; Atraumatic, normocephalic ENT: no ulcers no thrush. Tongue is midline. Oropharynx: no rash or ulcers. EYES: Pupils are equal, round and reactive to light accommodation. Eye muscles and extraocular movement intact. Sclera is anicteric. Neck; supple no lymphadenopathy, no thyromegaly or bruit Lungs: Normal respiratory rate/effort. Breath sounds bilateral equal and clear Heart: Normal rate. s1s2 normal. No rub or gallop. Extremities: no edema. No varicose veins Neurological: Patient is alert, awake and demented. No focal deficit. Strength bilateral appropriate and equal Skin: Warm and dry. Normal turgor. No rash. Palpitation: Normal elasticity for age Abdomen: Abdomen is soft. Bowel sounds +. There is no abdominal tenderness, no guarding/rigidity or organomegaly Psych: normal insight and normal affect/mood MSK: no joint tenderness or swelling. Digits and nails normal, no deformity : kidney or bladder not palpable Labs/imaging reviewed. Past medical history, past surgical history, family history, social history, allergy reviewed and noted as below Family Hx: no hx of CKD. Non contributory work up: Labs 07/19/17; sodium 136 potassium 5 bicarbonate 20 creatinine 3.3 calcium 7.8 phosphorus 3.8 vitamin D 17 PTH 83 hemoglobin 12.5 UA 1+ protein Spot protein creatinine ratio 150 Spot alb/cr 68 Renal sonogram right renal atrophy and right renal simple cyst. PVR 42 mL Echocardiogram normal LV function 08/22/17: urine pro/cr 251 mg/g, alb/cr 70 mg/g , UA no pro/blood Na 138 K 4.9 Bicarb 24 BUN/Cr 30/3 (GFR 18) Hb 12.8 10/17/17: Phos 2.6 Na 139 K 4.6 Bicarb 21 Ca 9 BUN/cr 37/2.62 (GFR 22) UA trace protein Hb 12.5 Objective - Vital Signs/Intake and Output Vital Signs (last 24 hours): Temp Pulse Resp BP Pulse Ox 98.6 F 59 L 20 149/70 95 12/20/17 08:13 12/20/17 08:13 12/20/17 08:13 12/20/17 09:59 12/20/17 08:13 Intake and Output: 12/20/17 12/20/17 06:59 18:59 Intake Total 500 Balance 500 - Medications Medications: Current Medications Allopurinol (Zyloprim) 100 mg PO DAILY [facility] Last Admin: 12/20/17 09:59 Dose: 100 mg Enoxaparin Sodium (Lovenox) 30 mg SC DAILY [facility] Last Admin: 12/20/17 09:59 Dose: 30 mg Ergocalciferol (Drisdol 50,000 Intl Units Cap) 1 cap PO Q7D [facility] Last Admin: 12/17/17 18:13 Dose: 1 cap Fluticasone/Vilanterol (Breo Ellipta 100-25 Mcg Inh) 1 puff INH RQ24 [facility] Last Admin: 12/20/17 08:46 Dose: 1 puff Furosemide (Lasix) 20 mg PO Q2D [facility] Hydralazine HCl (Apresoline) 50 mg PO TID [facility] Last Admin: 12/20/17 14:35 Dose: 50 mg Metoprolol Tartrate (Lopressor) 50 mg PO BID [facility] Last Admin: 12/20/17 09:59 Dose: 50 mg Pantoprazole Sodium (Protonix Ec Tab) 40 mg PO DAILY [facility] Last Admin: 12/20/17 09:59 Dose: 40 mg Tamsulosin HCl (Flomax) 0.4 mg PO DAILY [facility] Last Admin: 12/20/17 09:59 Dose: 0.4 mg - Labs Labs: 12/20/17 14:20 12/20/17 14:20 PT 11.6 SECONDS (9.7-12.2) 12/17/17 13:41 INR 1.1 12/17/17 13:41 APTT 30 SECONDS (21-34) 12/17/17 13:41
[2017-12-20 16:13] VITALS: BP 152/66; TEMP 97.3
--- NOTE | 2017-12-20 16:16 | CP.PCM.PN ---
Subjective - Date & Time of Evaluation Date of Evaluation: 12/20/17 Time of Evaluation: 16:16 Objective - Vital Signs/Intake and Output Vital Signs (last 24 hours): Temp Pulse Resp BP Pulse Ox 97.3 F L 55 L 20 152/66 H 95 12/20/17 15:00 12/20/17 15:00 12/20/17 15:00 12/20/17 15:00 12/20/17 15:00 Intake and Output: 12/20/17 12/20/17 06:59 18:59 Intake Total 500 Balance 500 - Medications Medications: Current Medications Allopurinol (Zyloprim) 100 mg PO DAILY [facility] Last Admin: 12/20/17 09:59 Dose: 100 mg Enoxaparin Sodium (Lovenox) 30 mg SC DAILY [facility] Last Admin: 12/20/17 09:59 Dose: 30 mg Ergocalciferol (Drisdol 50,000 Intl Units Cap) 1 cap PO Q7D [facility] Last Admin: 12/17/17 18:13 Dose: 1 cap Fluticasone/Vilanterol (Breo Ellipta 100-25 Mcg Inh) 1 puff INH RQ24 [facility] Last Admin: 12/20/17 08:46 Dose: 1 puff Furosemide (Lasix) 20 mg PO Q2D [facility] Hydralazine HCl (Apresoline) 50 mg PO TID [facility] Last Admin: 12/20/17 14:35 Dose: 50 mg Metoprolol Tartrate (Lopressor) 50 mg PO BID [facility] Last Admin: 12/20/17 09:59 Dose: 50 mg Pantoprazole Sodium (Protonix Ec Tab) 40 mg PO DAILY [facility] Last Admin: 12/20/17 09:59 Dose: 40 mg Tamsulosin HCl (Flomax) 0.4 mg PO DAILY [facility] Last Admin: 12/20/17 09:59 Dose: 0.4 mg - Labs Labs: 12/20/17 14:20 12/20/17 14:20 PT 11.6 SECONDS (9.7-12.2) 12/17/17 13:41 INR 1.1 12/17/17 13:41 APTT 30 SECONDS (21-34) 12/17/17 13:41 Assessment and Plan - Assessment and Plan (Free Text) Assessment: FOLLOW UP WITH DR Aaron ARRIETA IN 1-2 WEEK AT HIS OFFICE ---CALL FOR APPOINTMENT FOLLOW UP WITH DR SCHNEIDER IN 1-2 WEEK AT HIS OFFICE ---CALL FOR APPOINTMENT CONTINUE HOME MEDICATION NEW PRESCRIPTION GIVEN NORVASC 5 MG PO DAILY HOLD BP IS SBP IS LESS THAN [address] Aaron ARRIETA OR GO TO THE EMERGENCY ROOM IF SYMPTOM RETURN OR WORSENING
--- NOTE | 2017-12-20 16:19 | CP.PCM.PN ---
Subjective - Date & Time of Evaluation Date of Evaluation: 12/20/17 Time of Evaluation: 09:30 - Subjective Subjective: clinically same Objective - Vital Signs/Intake and Output Vital Signs (last 24 hours): Temp Pulse Resp BP Pulse Ox 97.3 F L 55 L 20 152/66 H 95 12/20/17 15:00 12/20/17 15:00 12/20/17 15:00 12/20/17 15:00 12/20/17 15:00 Intake and Output: 12/20/17 12/20/17 06:59 18:59 Intake Total 500 Balance 500 - Medications Medications: Current Medications Allopurinol (Zyloprim) 100 mg PO DAILY [facility] Last Admin: 12/20/17 09:59 Dose: 100 mg Enoxaparin Sodium (Lovenox) 30 mg SC DAILY [facility] Last Admin: 12/20/17 09:59 Dose: 30 mg Ergocalciferol (Drisdol 50,000 Intl Units Cap) 1 cap PO Q7D [facility] Last Admin: 12/17/17 18:13 Dose: 1 cap Fluticasone/Vilanterol (Breo Ellipta 100-25 Mcg Inh) 1 puff INH RQ24 [facility] Last Admin: 12/20/17 08:46 Dose: 1 puff Furosemide (Lasix) 20 mg PO Q2D [facility] Hydralazine HCl (Apresoline) 50 mg PO TID [facility] Last Admin: 12/20/17 14:35 Dose: 50 mg Metoprolol Tartrate (Lopressor) 50 mg PO BID [facility] Last Admin: 12/20/17 09:59 Dose: 50 mg Pantoprazole Sodium (Protonix Ec Tab) 40 mg PO DAILY [facility] Last Admin: 12/20/17 09:59 Dose: 40 mg Tamsulosin HCl (Flomax) 0.4 mg PO DAILY [facility] Last Admin: 12/20/17 09:59 Dose: 0.4 mg - Labs Labs: 12/20/17 14:20 12/20/17 14:20 PT 11.6 SECONDS (9.7-12.2) 12/17/17 13:41 INR 1.1 12/17/17 13:41 APTT 30 SECONDS (21-34) 12/17/17 13:41 - Constitutional Appears: Well - Head Exam Head Exam: ATRAUMATIC, NORMAL INSPECTION, NORMOCEPHALIC - Eye Exam Eye Exam: EOMI, Normal appearance, PERRL Pupil Exam: NORMAL ACCOMODATION, PERRL - ENT Exam ENT Exam: Mucous Membranes Moist, Normal Exam - Neck Exam Neck Exam: Full ROM, Normal Inspection. absent: Lymphadenopathy - Respiratory Exam Respiratory Exam: Decreased Breath Sounds - Cardiovascular Exam Cardiovascular Exam: REGULAR RHYTHM, +S1, +S2 - GI/Abdominal Exam GI & Abdominal Exam: Soft, Diminished Bowel Sounds - Rectal Exam Rectal Exam: Deferred
[2017-12-20 16:58] VITALS: PULSE 56
--- NOTE | 2017-12-20 17:17 | US ---
Date of service: 12/20/2017 PROCEDURE: Ultrasound of the Bladder HISTORY: Please eval for PVR COMPARISON: None available. TECHNIQUE: Sonographic evaluation of the bladder was performed. FINDINGS: Unremarkable without wall thickening or intraluminal debris. No calculus or gross mass lesion. No free fluid in pelvis. Prevoid Volume: 174.3 cc. Post void residual: 50.7 cc. Documentation of bilateral ureteral jets. IMPRESSION: Small capacitance bladder, moderate postvoid residual.
== END 2017-12-20 18:11 | disposition home or self-care (01) | DRG 312 ==
LOC: C.ER 13:05 → C.9E 14:37 → C.5S 17:09
PROVIDERS: ADMIT Internal Medicine Nephrology; ATTEND Internal Medicine Nephrology
DX: R55 Syncope and collapse (principal); N18.4 Chronic kidney disease, stage 4 (severe); E03.9 Hypothyroidism, unspecified; F03.90 Unspecified dementia, unspecified severity, without behavioral disturbance, psychotic disturbance, mood disturbance, and anxiety; Z86.73 Personal history of transient ischemic attack (TIA), and cerebral infarction without residual deficits; I12.9 Hypertensive chronic kidney disease with stage 1 through stage 4 chronic kidney disease, or unspecified chronic kidney disease; J32.0 Chronic maxillary sinusitis; I73.9 Peripheral vascular disease, unspecified; N40.0 Benign prostatic hyperplasia without lower urinary tract symptoms; I70.90 Unspecified atherosclerosis

== ENCOUNTER 2018-05-19 12:36 | Inpatient (IN) | payer MEDICARE, MEDICAID ==
[2018-05-19] MEDS ORDERED: Aspirin 325 mg EC Tablets PO STA (13:15)
--- NOTE | 2018-05-19 13:38 | RAD ---
Date of service: 05/19/2018 HISTORY: chest pain COMPARISON: 12/17/2017 TECHNIQUE: Chest PA and lateral FINDINGS: LUNGS: No active pulmonary disease. PLEURA: No significant pleural effusion identified. No pneumothorax apparent. CARDIOVASCULAR: No aortic atherosclerotic calcification present. Normal cardiac size. No pulmonary vascular congestion. OSSEOUS STRUCTURES: No significant abnormalities. VISUALIZED UPPER ABDOMEN: Normal. OTHER FINDINGS: None. IMPRESSION: No active disease.
[2018-05-19] MEDS ORDERED: Albuterol-Ipratrop 3 mg / 0.5 (3 ml) UD INH STA (13:45)
[2018-05-19 13:49] LABS: INR 1.1; PROTHROMBIN TIME 12.3 SECONDS (9.7-12.2)
--- NOTE | 2018-05-19 13:50 | C.PDOC ---
History Of Present Illness 82 year old male with history of CHF, HTN, DM, CKD, and Dementia presents to ED for evaluation of SOB for 1 week. Patient's daughter states that her father has been complaining of SOB at rest and feeling tired. Patient is also complaining of epigastric pain for 1 week. Patient denies any sick contacts at home. Daughter reports that he is noncompliant with medication and stopped taking one of them 1 week ago. She is unsure of which medication he stopped taking. Patient also admits to experiencing diarrhea yesterday and that he has had 4 episodes since. He describes the diarrhea as loose and watery. He denies fever, chills, headache, dizziness, chest pain, nausea, and vomiting. side sawyer used (ID: [id number]) Time Seen by Provider: 05/19/18 12:43 Chief Complaint (Nursing): Chest Pain History Per: Patient, Family, Job Trainer (ID:[id number]) History/Exam Limitations: no limitations Onset/Duration Of Symptoms: Days (7) Current Symptoms Are (Timing): Still Present Exacerbating Factor(s): Exertion, Other (when at rest) Associated Symptoms: Other (diarrhea). denies: Fever, Chills, Chest Pain Past Medical History Reviewed: Historical Data, Nursing Documentation, Vital Signs Vital Signs: Last Vital Signs Temp 97.5 F L 05/19/18 12:54 Pulse 63 05/19/18 12:58 Resp 20 05/19/18 12:54 BP 196/85 H 05/19/18 12:58 Pulse Ox 97 05/19/18 12:54 - Medical History PMH: Arthritis, CHF, Dementia, Diabetes (on Sitagliptin), HTN, Hypothyroidism, Chronic Kidney Disease Surgical History: No Surg Hx Family History: States: Unknown Family Hx - Social History Hx Alcohol Use: No Hx Substance Use: No - Immunization History Hx Tetanus Toxoid Vaccination: No Hx Influenza Vaccination: Yes Hx Pneumococcal Vaccination: Yes Review Of Systems Constitutional: Positive for: Other (fatigue). Negative for: Fever, Chills, Weakness Cardiovascular: Negative for: Chest Pain, Palpitations Respiratory: Positive for: Shortness of Breath Gastrointestinal: Positive for: Abdominal Pain (epigastic area), Diarrhea. Negative for: Nausea, Vomiting Neurological: Negative for: Weakness, Numbness, Headache, Dizziness Physical Exam - Physical Exam Appears: Well, Non-toxic, No Acute Distress Skin: Normal Color, Warm, Dry Head: Atraumatic, Normacephalic Neck: Normal ROM, Supple Chest: Symmetrical, No Deformity Cardiovascular: Rhythm Regular Respiratory: Rales, Wheezing Gastrointestinal/Abdominal: Soft, Tenderness (epigastric area) Extremity: Pedal Edema (mild), Capillary Refill (<2 seconds) Neurological/Psych: Oriented x3, Normal Speech, Normal Cognition ED Course And Treatment - Laboratory Results Result Diagrams: 05/19/18 13:23 05/19/18 13:23 ECG: Viewed By Me O2 Sat by Pulse Oximetry: 97 (RA) - Other Rad CXR X-Ray: Interpreted by Me, Viewed By Me Interpretation: Accession No. : [id number]. Patient Name / ID : ALEA PEPE / [id number]. Exam Date : 05/19/2018 13:18:37 ( Approved ). Study Comment : Sex / Age : M / 82Y. Creator : Thad Kelly MD. Dictator : Thad Kelly MD. Medium Cycle Salesperson : Commercial Real Estate Agent : Thad Kelly MD. Approver2 : Report Date : 05/19/2018 13:35:14. My Comment : . Date of service: 05/19/2018. HISTORY: chest pain. COMPARISON: 12/17/2017. TECHNIQUE: Chest PA and lateral. FINDINGS: LUNGS: No active pulmonary disease. PLEURA: No significant pleural effusion identified. No pneumothorax apparent. CARDIOVASCULAR: No aortic atherosclerotic calcification present. Normal cardiac size. No pulmonary vascular congestion. OSSEOUS STRUCTURES: No significant abnormalities. VISUALIZED UPPER ABDOMEN: Normal. OTHER FINDINGS: None. IMPRESSION: No active disease. Medical Decision Making Medical Decision Making: uncontrolled SOB, History of CHF Admit under Dr. 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 (Soha Craig) - Scribe Statement The provider has reviewed the documentation as recorded by the Scribe (Soha Craig) All medical record entries made by the Scribe were at my direction and personally dictated by me. I have reviewed the chart and agree that the record accurately reflects my personal performance of the history, physical exam, medical decision making, and the department course for this patient. I have also personally directed, reviewed, and agree with the discharge instructions and disposition. Decision To Admit - Pt Status Changed To: Hospital Disposition Of: Observation - . Bed Request Type: Telemetry Admitting Physician: Thad Greer Patient Diagnosis: Congestive heart failure, SOB (shortness of breath)
[2018-05-19 13:52] LABS: BASO # 0.1 K/uL (0.0-0.2); BASO % 0.7 % (0.0-2.0); EOS # 1.4 K/uL (0.0-0.7); EOS % 16.1 % (0.0-4.0); LYMPH # 2.2 K/uL (1.0-4.3); LYMPH % 25.6 % (20.0-40.0); MEAN CORPUSCULAR HEMOGLOBIN 33.2 pg (27.0-31.0); MEAN CORPUSCULAR HGB CONC 32.8 g/dL (33.0-37.0); MEAN PLATELET VOLUME 10.3 fL (7.2-11.7); MONO # 0.7 K/uL (0.0-0.8); NEUT # 4.2 K/uL (1.8-7.0); NEUT % 49.6 % (50.0-75.0); RBC 3.46 Mil/uL (4.40-5.90); RED CELL DISTRIBUTION WIDTH 14.9 % (11.5-14.5); WHITE BLOOD COUNT 8.5 K/uL (4.8-10.8)
[2018-05-19 13:53] LABS: HEMOGLOBIN 11.5 g/dL (12.0-18.0); MEAN CELL VOLUME 101.4 fL (80.0-94.0)
[2018-05-19] MEDS ORDERED: Albuterol-Ipratrop 3 mg / 0.5 (3 ml) UD ONE (13:53)
[2018-05-19 14:03] LABS: ALB/GLOB RATIO 1.3 (1.0-2.1); ALBUMIN 4.3 g/dL (3.5-5.0); CALCIUM 8.7 mg/dl (8.6-10.4)
[2018-05-19 14:20] LABS: TROPONIN I 0.017 ng/mL (0.00-0.120)
[2018-05-19 14:37] LABS: URINE BILIRUBIN NEGATIVE (NEGATIVE); URINE BLOOD NEGATIVE (NEGATIVE); URINE CLARITY Clear (Clear); URINE COLOR Yellow (YELLOW); URINE GLUCOSE (UA) NORMAL (Normal); URINE LEUKOCYTE ESTERASE NEG Leu/uL (Negative); URINE PROTEIN 1+ mg/dL (NEGATIVE); URINE UROBILINOGEN NORMAL mg/dL (0.2-1.0)
--- NOTE | 2018-05-19 16:49 | CP.PCM.HP ---
<Judah Murillo - Last Filed: 05/19/18 18:38> History of Present Illness - History of Present Illness History of Present Illness: H&P Hospitalist Service: Dr. Hermelindo Goldberg 82 year old male with a past medical history of hypertension, demntia, diabetes, and ?ckd who presents to the hospital complaining of shortness of breath for the past week. Patient states he gets winded when walking down the street. Patient also reports difficulty walking in conjunction with the shortness of breath. Patient states he only has difficulty breathing upon activity. Patient also report some lower extremity swelling for the past week since stopping his medication (?water pill) last week. Patient denies shortness of breath at rest. Patient denies any chest pain, fevers, chills, dizziness, or any other complaints. Patient also reports epigastric tenderness for the past week. Patient describes it as a gnawing pain. Patient also reports abdominal growth over the past week. Patient denies any pain in association with the abdominal swelling. Patient also reports four episodes of non-bloody diarrhea that occurred today. Patient denies any fevers, chills, recent travel, recent antibiotic usage, syncopal episodes, dizziness, headaches, or any other complaints. PMD: Dr. Minaya Cardiology: Dr. Valencia Nephrology: Can't recall. F/u with Patients daugther [facility]:[phone] ; call and confirm medications Dr. Minaya:[phone] Medical history: hypertension, dementia, diabetes, ckd Allergies: Amlodipine Surgical history: neda Medications:Hydralazine 100mg PO TID, Sodium bicarbonate 650mg PO BID, Protonix 20mg PO Daily, Metoprolol Tartrate 50mg PO BID, Januvia 25mg PO Daily Remainder of of Medications verify with Pharmacy: [facility] [phone] Social history: 20 year pack history. Denies alcohol abuse.Denies illicit drug use. Lives with . Performs ADL's without use of cane or walker. 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 Present on Admission - Present on Admission Any Indicators Present on Admission: No Review of Systems - Constitutional Constitutional: absent: Chills, Frequent Falls, Night Sweats, Weakness - EENT Eyes: absent: Blurred Vision Ears: absent: Ear Discharge, Dizziness Nose/Mouth/Throat: absent: Nasal Congestion, Nasal Trauma, Nose Pain, Mouth Pain, Facial Pain - Cardiovascular Cardiovascular: Dyspnea on Exertion. absent: Chest Pain, Diaphoresis, Edema, Irregular Heart Rhythm, Leg Edema, Palpitations, Pedal Edema, Syncope - Respiratory Respiratory: absent: Cough, Dyspnea, Hemoptysis, Pain on Inspiration, Change in Mucous Color Additional comments: Shortness of breath x 1 week - Gastrointestinal Gastrointestinal: Diarrhea, Heartburn. absent: Constipation, Cramping, Fecal Incontinence, Loose Stools, Melena, Nausea, Vomiting - Musculoskeletal Musculoskeletal: absent: Arthralgias, Muscle Weakness, Myalgias, Stiffness, Tingling - Integumentary Integumentary: absent: Hirsutism, Photosensitivity, Striae, Swelling - Neurological Neurological: absent: Numbness, Loss of Vision, Vertigo, Weakness - Psychiatric Psychiatric: absent: Anxiety Past Patient History - Infectious Disease Hx of Infectious Diseases: None - Past Medical History & Family History Past Medical History?: Yes - Past Social History Smoking Status: Never Smoked - CARDIAC Hx Congestive Heart Failure: Yes Hx Hypertension: Yes - PULMONARY Hx Respiratory Disorders: No - NEUROLOGICAL Hx Dementia: Yes - HEENT Hx HEENT Problems: No - RENAL Hx Chronic Kidney Disease: Yes - ENDOCRINE/METABOLIC Hx Hypothyroidism: Yes - HEMATOLOGICAL/ONCOLOGICAL Hx Blood Disorders: No - INTEGUMENTARY Hx Dermatological Problems: No - MUSCULOSKELETAL/RHEUMATOLOGICAL Hx Arthritis: Yes - GASTROINTESTINAL Hx Gastrointestinal Disorders: No - GENITOURINARY/GYNECOLOGICAL Hx Genitourinary Disorders: No - PSYCHIATRIC Hx Substance Use: No - SURGICAL HISTORY Hx Surgeries: No - ANESTHESIA Hx Anesthesia: No Meds Home Medications: Home Medication List Medication Instructions Recorded Confirmed Type Albuterol HFA [Ventolin HFA 90 1 puff IH Q6H PRN #1 inhaler 05/24/18 Rx mcg/actuation (8 g)] Amoxicillin/Clavulanate [Augmentin 1 tab PO Q12H 4 Days tab 05/24/18 Rx 500 MG-125 MG Tab] Cyanocobalamin [Vitamin B12 1000 1,000 mcg PO DAILY #30 tab 05/24/18 Rx mcg Tab] Donepezil [Aricept] 10 mg PO HS #30 tab 05/24/18 Rx Fluticasone/Salmeterol 250/50 1 puff INH RQ12 #1 puff 05/24/18 Rx [Advair Diskus 250/50] Furosemide [Lasix] 20 mg PO Q2D 14 Days tab 05/24/18 Rx Isosorbide Mononitrate [Imdur] 60 mg PO DAILY #30 tab 05/24/18 Rx Lactobacillus Acidophilus 1 cap PO BID 34 Days cap 05/24/18 Rx [Lactobacillus] Memantine [Namenda] 5 mg PO BID #60 tab 05/24/18 Rx Metoprolol Tartrate [Lopressor] 100 mg PO BID #60 tab 05/24/18 Rx Tamsulosin [Flomax] 0.4 mg PO DAILY #30 cap 05/24/18 Rx Vitamin B Complex/Vit C/Folic 1 tab PO 0800 #30 tab 05/24/18 Rx [Nephro-Tin] hydrALAZINE [Apresoline] 90 mg PO TID #90 tab 05/24/18 Rx Allergies/Adverse Reactions: Allergies Allergy/AdvReac Type Severity Reaction Status Date / Time amlodipine Allergy Verified 05/19/18 13:18 Physical Exam - Head Exam Head Exam: ATRAUMATIC, NORMAL INSPECTION - Eye Exam Eye Exam: EOMI, Normal appearance, PERRL. absent: Periorbital tenderness Pupil Exam: NORMAL ACCOMODATION - ENT Exam ENT Exam: Mucous Membranes Moist, Normal Oropharynx - Neck Exam Neck exam: Negative for: Lymphadenopathy, Thyromegaly - Respiratory Exam Respiratory Exam: Decreased Breath Sounds, Wheezes. absent: Respiratory Distress, NORMAL BREATHING PATTERN - Cardiovascular Exam Cardiovascular Exam: REGULAR RHYTHM, +S1, +S2. absent: JVD, RRR, Rubs Additional comments: no JVD, S4 - GI/Abdominal Exam GI & Abdominal Exam: Distended, Soft. absent: Hypoactive Bowel Sounds, Organomegaly, Pulsatile Mass, Tenderness - Extremities Exam Extremities exam: Positive for: pedal edema Additional comments: 2+ pitting edema to mid tibia - Neurological Exam Neurological exam: Alert, CN II-XII Intact, Oriented x3 - Psychiatric Exam Psychiatric exam: Normal Affect, Normal Mood - Skin Skin Exam: Dry, Intact Results - Vital Signs Recent Vital Signs: Last Vital Signs Temp 97.5 F L 05/19/18 12:54 Pulse 62 05/19/18 16:35 Resp 13 05/19/18 16:35 BP 177/80 H 05/19/18 16:35 Pulse Ox 98 05/19/18 16:35 - Labs Result Diagrams: 05/19/18 13:23 05/19/18 13:23 Labs: Laboratory Results - last 24 hr 05/19/18 05/19/18 05/19/18 13:23 13:23 13:23 WBC 8.5 RBC 3.46 L Hgb 11.5 L D Hct 35.1 MCV 101.4 H D MCH 33.2 H MCHC 32.8 L RDW 14.9 H Plt Count 123 L D MPV 10.3 Neut % (Auto) 49.6 L Lymph % (Auto) 25.6 [place] % (Auto) 8.0 Eos % (Auto) 16.1 H Baso % (Auto) 0.7 Neut # (Auto) 4.2 Lymph # (Auto) 2.2 [place] # (Auto) 0.7 Eos # (Auto) 1.4 H Baso # (Auto) 0.1 Differential Comment PT 12.3 H INR 1.1 APTT 34 Sodium 138 Potassium 4.9 Chloride 103 Carbon Dioxide 28 Anion Gap 12 BUN 32 H Creatinine 2.8 H Est GFR ( Amer) 26 Est GFR (Non-Af Amer) 22 Random Glucose 91 Calcium 8.7 Total Bilirubin 1.1 AST 27 ALT 31 Alkaline Phosphatase 138 H D Troponin I 0.0170 NT-Pro-B Natriuret Pep 8560 H Total Protein 7.5 Albumin 4.3 Globulin 3.3 Albumin/Globulin Ratio 1.3 Urine Color Urine Clarity Urine pH Ur Specific [place] Urine Protein Urine Glucose (UA) Urine Ketones Urine Blood Urine Nitrate Urine Bilirubin Urine Urobilinogen Ur Leukocyte Esterase Urine WBC (Auto) 05/19/18 14:18 WBC RBC Hgb Hct MCV MCH MCHC RDW Plt Count MPV Neut % (Auto) Lymph % (Auto) [place] % (Auto) Eos % (Auto) Baso % (Auto) Neut # (Auto) Lymph # (Auto) [place] # (Auto) Eos # (Auto) Baso # (Auto) Differential Comment PT INR APTT Sodium Potassium Chloride Carbon Dioxide Anion Gap BUN Creatinine Est GFR ( Amer) Est GFR (Non-Af Amer) Random Glucose Calcium Total Bilirubin AST ALT Alkaline Phosphatase Troponin I NT-Pro-B Natriuret Pep Total Protein Albumin Globulin Albumin/Globulin Ratio Urine Color Yellow Urine Clarity Clear Urine pH 6.0 Ur Specific [place] 1.009 Urine Protein 1+ H Urine Glucose (UA) Normal Urine Ketones Negative Urine Blood Negative Urine Nitrate Negative Urine Bilirubin Negative Urine Urobilinogen Normal Ur Leukocyte Esterase Neg Urine WBC (Auto) < 1 Assessment & Plan - Assessment and Plan (Free Text) Assessment: 82 year old male with a past medical history of hypertension, dementia, ckd, being admitted for shortness of breath. Plan: 1.Shortness of breath 2/2 ?COPD -Given IV steroids in E.D. At this time will hold IV steroids at the risk of increasing blood pressure. Once better controlled. Can start Daily steroid. -Chest xray: No active disease -CT abdomen, chest and pelvis w/o contrast ordered STAT. Will f/u with results -Bipap PRN: only if patient begins to decompensate (02/28 ; 60% O2) -pro-BNP:8560 Medications: Breo Ellipata 100-25mcg 1 puff q12h Duoneb q6 for next 24 hours 2.Epigastric pain -Patient distended on exam. -Abdomen/pelvis CT ordered. Will f/u with results 3.HTN urgency -BP-->196/85 on admission. -Given Clonidine .1mg and Lasix 40mg in the E.D. -Confirm remaining blood pressure medications Medications: Continue Hydralazine 100mg PO TID Continue Metoprolol Tartrate 50mg PO BID 4. hx of Diabetes -Hg A1C ordered. Will f/u with results. -Hold home medication Januvia 25mg PO Daily -ISS Low ACHS -Hypoglycemic protocol 5 .CKD stage 4 -Cr-->2.8 on admission. At baseline per chart review. -Per daughter at bedside. Patient only has one functioning kidney. Patient has a outpatient [employer]. Advised daughter to obtain the name for records. -Will continue to monitor. -Nephrology Dr. Platt consulted.---> Help appreciated 6.Diarrhea -Stool studies. F/u with results -Ova and parasite ordered .Will f/u with results. 7. Hx of Low Vit D level -Vit D level ordered. Will f/u with results. 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 Hx of hypothyroidism -Not on any medications -Note on prior admission notes -TSH, Free T4 ordered .F/u with results 10.Macrocytic anemia -Folate, vitamin b12 ordered. Will f/u with results 11.?Hx of Gout -Confirm with PMD Dr. Minaya 12.? Hx of BPH -Confirm with PMD Dr. Minaya 13.?Hx of Dementia Not on any medications Per daughter at bedside, patient was diagnosed three years ago by PMD. Confirm with PMD Dr. Minaya 14.? CHF hx on prior notes Last echo 01/01/18 does NOT indicated heart failure PPX -Heparin SC 5000 Units q8 -No ppi indicated -SCD's Family contact info: [facility]: Per radha Mark at bedside, patient is DNR/DNI Plan discussed with Attending Dr. Hermelindo Goldberg. Judah Murillo, PGY-2 <Ramiro Goldberg - Last Filed: 05/26/18 08:52> Results - Vital Signs Recent Vital Signs: Last Vital Signs Temp 98.0 F 05/24/18 07:00 Pulse 59 L 05/24/18 09:20 Resp 20 05/24/18 09:20 BP 154/71 H 05/24/18 09:20 Pulse Ox 95 05/24/18 09:20 - Labs Result Diagrams: 05/24/18 12:14 05/24/18 12:14 Labs: Laboratory Results - last 24 hr 05/23/18 05/23/18 05/23/18 11:55 16:18 20:58 WBC RBC Hgb Hct MCV MCH MCHC RDW Plt Count MPV Neut % (Auto) Lymph % (Auto) [place] % (Auto) Eos % (Auto) Baso % (Auto) Neut # (Auto) Lymph # (Auto) [place] # (Auto) Eos # (Auto) Baso # (Auto) Neutrophils % (Manual) Lymphocytes % (Manual) Monocytes % (Manual) Eosinophils % (Manual) Platelet Estimate RBC Morphology Sodium Potassium Chloride Carbon Dioxide Anion Gap BUN Creatinine Est GFR ( Amer) Est GFR (Non-Af Amer) POC Glucose (mg/dL) 118 H 134 H 133 H Random Glucose Calcium Phosphorus Magnesium Total Bilirubin AST ALT Alkaline Phosphatase Total Protein Albumin Globulin Albumin/Globulin Ratio 05/24/18 05/24/18 05/24/18 06:33 11:28 12:14 WBC 10.3 RBC 3.84 L Hgb 12.7 Hct 38.5 MCV 100.2 H MCH 33.2 H MCHC 33.2 RDW 14.2 Plt Count 188 MPV 9.9 Neut % (Auto) 53.2 Lymph % (Auto) 19.4 L [place] % (Auto) 6.3 Eos % (Auto) 20.6 H Baso % (Auto) 0.5 Neut # (Auto) 5.5 Lymph # (Auto) 2.0 [place] # (Auto) 0.6 Eos # (Auto) 2.1 H Baso # (Auto) 0.1 Neutrophils % (Manual) 48 L Lymphocytes % (Manual) 23 Monocytes % (Manual) 5 Eosinophils % (Manual) 24 H Platelet Estimate Normal RBC Morphology Normal Sodium Potassium Chloride Carbon Dioxide Anion Gap BUN Creatinine Est GFR ( Amer) Est GFR (Non-Af Amer) POC Glucose (mg/dL) 109 96 Random Glucose Calcium Phosphorus Magnesium Total Bilirubin AST ALT Alkaline Phosphatase Total Protein Albumin Globulin Albumin/Globulin Ratio 05/24/18 05/24/18 12:14 17:24 WBC RBC Hgb Hct MCV MCH MCHC RDW Plt Count MPV Neut % (Auto) Lymph % (Auto) [place] % (Auto) Eos % (Auto) Baso % (Auto) Neut # (Auto) Lymph # (Auto) [place] # (Auto) Eos # (Auto) Baso # (Auto) Neutrophils % (Manual) Lymphocytes % (Manual) Monocytes % (Manual) Eosinophils % (Manual) Platelet Estimate RBC Morphology Sodium 132 Potassium 3.9 Chloride 91 L Carbon Dioxide 30 Anion Gap 16 BUN 58 H Creatinine 4.0 H Est GFR ( Amer) 17 Est GFR (Non-Af Amer) 14 POC Glucose (mg/dL) 132 H Random Glucose 94 Calcium 8.6 Phosphorus 3.4 Magnesium 2.0 Total Bilirubin 0.8 AST 22 ALT 19 L Alkaline Phosphatase 101 Total Protein 7.9 Albumin 4.6 Globulin 3.3 Albumin/Globulin Ratio 1.4 Attending/Attestation - Attestation I have personally seen and examined this patient.: Yes I have fully participated in the care of the patient.: Yes I have reviewed all pertinent clinical information: Yes Notes (Text): 05/25/18 07:53 This is a late entry. Patient was seen and examined with Dr. Murillo at the time of admission. History, Physical, Assessment and Plan, and all admission orders were gone over with resident Dr. Lidia Goldberg D.O.
[2018-05-19] MEDS: Albuterol-Ipratrop 3 mg / 0.5 (3 ml) UD INH SCH ×2 (18:01→20:58)
[2018-05-19] MEDS: Fluticasone-Vilanterol 100/25mcg Diskus INH SCH (20:58)
[2018-05-19] MEDS: (Novolin R) Insulin Human Regular 100 units/ml vial SC SCH (21:33)
[2018-05-19 22:11] LABS: TROPONIN I 0.012 ng/mL (0.00-0.120)
[2018-05-19 23:05] LABS: FOLATE 11.9 ng/mL
[2018-05-20] MEDS: Albuterol-Ipratrop 3 mg / 0.5 (3 ml) UD INH SCH ×4 (02:15→19:11)
[2018-05-20 02:40] LABS: ALB/GLOB RATIO 1.3 (1.0-2.1); ALT/SGPT 22 U/L (21-72); AST/SGOT 28 U/L (17-59); BLOOD UREA NITROGEN 39 mg/dL (9-20); CALCIUM 8.5 mg/dl (8.6-10.4); GFR NON-AFRICAN AMERICAN 17
--- NOTE | 2018-05-20 07:43 | CP.PCM.PN ---
<Danyel Rendon - Last Filed: 05/20/18 17:49> Subjective - Date & Time of Evaluation Date of Evaluation: 05/20/18 Time of Evaluation: 11:00 - Subjective Subjective: PGY1 medicine progress note for Dr. Back Pt was seen and examined at bedside. Pt still reports some diarrhea, nonbloody. No acute events overnight. Pt denies fever, chills, chest pain, sob, abdominal pain, n/v, hematochezia, melena, lightheadedness, dizziness. Objective - Vital Signs/Intake and Output Vital Signs (last 24 hours): Temp Pulse Resp BP Pulse Ox 97.8 F 89 20 130/63 95 05/20/18 00:00 05/20/18 01:00 05/20/18 00:00 05/20/18 00:00 05/20/18 00:00 - Medications Medications: Current Medications Acetaminophen (Tylenol 325mg Tab) 650 mg PO Q6 PRN PRN Reason: Pain, Mild (1-3) Albuterol/Ipratropium (Duoneb 3 Mg/0.5 Mg (3 Ml) Ud) 3 ml INH RQ6 [facility] Last Admin: 05/20/18 02:15 Dose: 3 ml Fluticasone/Vilanterol (Breo Ellipta 100-25 Mcg Inh) 1 puff INH RQ12 [facility] Last Admin: 05/19/18 20:58 Dose: 1 puff Furosemide (Lasix) 20 mg IVP DAILY [facility] Heparin Sodium (Porcine) (Heparin) 5,000 units SC Q8 [facility] Last Admin: 05/20/18 05:10 Dose: 5,000 units Hydralazine HCl (Apresoline) 100 mg PO TID [facility] Last Admin: 05/19/18 18:08 Dose: 100 mg Insulin Human Regular (Novolin R) 0 unit SC ACHS [facility]; Protocol Last Admin: 05/19/18 21:33 Dose: Not Given Metoprolol Tartrate (Lopressor) 50 mg PO BID [facility] Sodium Bicarbonate (Sodium Bicarbonate Tab) 650 mg PO BID [facility] Last Admin: 05/19/18 20:20 Dose: 650 mg - Labs Labs: 05/19/18 13:23 05/20/18 01:51 PT 12.3 SECONDS (9.7-12.2) H 02/24/19 13:23 INR 1.1 05/19/18 13:23 APTT 34 SECONDS (21-34) 05/19/18 13:23 - Additional Findings Additional findings: - Head Exam Head Exam: ATRAUMATIC, NORMAL INSPECTION - Eye Exam Eye Exam: EOMI, Normal appearance, PERRL. absent: Periorbital tenderness - ENT Exam ENT Exam: Mucous Membranes Moist, Normal Oropharynx - Neck Exam Neck exam: Negative for: Lymphadenopathy, Thyromegaly - Respiratory Exam Respiratory Exam: Decreased Breath Sounds, Wheezes, Rales at the bases bilaterally. absent: Respiratory Distress, NORMAL BREATHING PATTERN - Cardiovascular Exam Cardiovascular Exam: REGULAR RHYTHM, +S1, +S2. absent: JVD, RRR, Rubs, hepatojugular reflux - GI/Abdominal Exam GI & Abdominal Exam: Distended, Soft, nontender. absent: Hypoactive Bowel Sounds, Organomegaly, Pulsatile Mass, Tenderness - Extremities Exam Extremities exam: Positive for: pedal edema Additional comments: 1+ pitting edema to mid tibia - Neurological Exam Neurological exam: Alert, Oriented x3 - Psychiatric Exam Psychiatric exam: Normal Affect, Normal Mood - Skin Skin Exam: Dry, Intact Assessment and Plan - Assessment and Plan (Free Text) Assessment: 82 year old male with a past medical history of hypertension, dementia, ckd, being admitted for shortness of breath. Plan: Shortness of breath 2/2 ?COPD -Chest xray: No active disease -CT abdomen, chest and pelvis w/o contrast showed small bilateral pleural effusion. no pulmonary infiltrate. Cardiomegaly with coronary arterial calcification. Cholelithiasis without evidence of cholecystitis. Mild right renal atrophy. Pancolonic diverticulosis without evidence of diverticulitis. -Bipap PRN: only if patient begins to decompensate (02/28 ; 60% O2) -pro-BNP:8560[place] [address] today Medications: Breo Ellipata 100-25mcg 1 puff q12h Duoneb q6 for next 24 hours Lasix 20 mg IVP daily Epigastric pain with diarrhea -Patient distended on exam. -Chest/Abd/pelv Ct without contrast reading above. -Stool studies. F/u with results -Ova and parasite ordered .Will f/u with results. -F/u Abd/Pelv CT with PO contrast HTN urgency -BP-->196/85 on admission. -Given Clonidine .1mg and Lasix 40mg in the E.D. Medications: Continue home Hydralazine 100mg PO TID Continue home Metoprolol Tartrate 50mg PO BID CKD stage 4 -Cr-->2.8 on admission. At baseline per chart review. -Per daughter at bedside. Patient only has one functioning kidney. Patient has a outpatient [employer]. Advised daughter to obtain the name for records. -Will continue to monitor. -Nephrology Dr. Platt consulted. Per Dr. Ball, Ultrasound of the kidney, Stat spot urine for ratio of protein to creatinine, PTH, Patient may not need sodium bicarbonate with CO2 of about 28 suggest to discontinue for now. Hx of Diabetes -Hg A1C is 5.7 -Hold home medication Januvia 25mg PO Daily -ISS Low ACHS -Hypoglycemic protocol Hx of Low Vit D level -Vit D level normal -Pharmacy shows no prescription for home vitamin d Hx of Left Anterior Fasicular Block Criteria: Left axis deviation Small Q waves w/ tall R waves in leads I, and aVL Small R waves w/deep S waves in Leads II, III, aVF Prolonged R wave peak time in avl EKG unchanged when compared to June 2017 Hx of hypothyroidism -Continue home Levothyroxine 25 mcg daily -TSH, Free T4 are WNL Macrocytic anemia -Folate normal -vitamin b12 low at 177 Hx of Gout -Continue home allopurinol 100 mg po QD Hx of BPH -Confirm with PMD Dr. Minaya Hx of Dementia -Continue home Aricept 10 mg PO daily, Memantine 10 mg PO BID -Per daughter at bedside, patient was diagnosed three years ago by PMD. CHF hx on prior notes Last echo 01/01/18 does NOT indicated heart failure, but with increased right ventricular systolic pressure PPX -Heparin SC 5000 Units q8 -Protonix 20 mg PO daily -SCD's Family contact info: [facility]: Case discussed with Dr. Back <Maya Back V - Last Filed: 05/22/18 20:22> Objective - Vital Signs/Intake and Output Vital Signs (last 24 hours): Temp Pulse Resp BP Pulse Ox 97.8 F 86 18 163/84 H 98 05/22/18 15:00 05/22/18 18:15 05/22/18 18:15 05/22/18 18:15 05/22/18 18:15 Intake and Output: 05/22/18 05/23/18 18:59 06:59 Intake Total 720 Output Total 800 Balance -80 - Medications Medications: Current Medications Acetaminophen (Tylenol 325mg Tab) 650 mg PO Q6 PRN PRN Reason: Pain, Mild (1-3) Albuterol/Ipratropium (Duoneb 3 Mg/0.5 Mg (3 Ml) Ud) 3 ml INH RQ6 [facility] Last Admin: 05/22/18 14:19 Dose: 3 ml Donepezil HCl (Aricept) 10 mg PO HS [facility] Last Admin: 05/21/18 21:30 Dose: 10 mg Fluticasone/Vilanterol (Breo Ellipta 100-25 Mcg Inh) 1 puff INH RQ12 [facility] Last Admin: 05/22/18 07:23 Dose: 1 puff Heparin Sodium (Porcine) (Heparin) 5,000 units SC Q8 [facility] Last Admin: 05/22/18 13:29 Dose: 5,000 units Hydralazine HCl (Apresoline) 50 mg PO TID [facility] Last Admin: 05/22/18 17:35 Dose: 50 mg Piperacillin Sod/Tazobactam Sod (Zosyn 2.25 Gm Iv Premix) 2.25 gm in 50 mls @ 100 mls/hr IVPB Q8H [facility]; Protocol Last Admin: 05/22/18 17:37 Dose: 100 mls/hr Insulin Human Regular (Novolin R) 0 unit SC ACHS [facility]; Protocol Last Admin: 05/22/18 11:53 Dose: Not Given Isosorbide Mononitrate (Imdur Er) 30 mg PO DAILY [facility] Last Admin: 05/22/18 16:16 Dose: 30 mg Memantine (Namenda) 5 mg PO BID [facility] Last Admin: 05/22/18 17:35 Dose: 5 mg Metoprolol Tartrate (Lopressor) 100 mg PO BID [facility] Last Admin: 05/22/18 17:35 Dose: 100 mg Pantoprazole Sodium (Protonix Inj) 40 mg IVP DAILY [facility] Last Admin: 05/22/18 10:25 Dose: 40 mg Simethicone (Mylicon Chew Tab) 80 mg PO BID [facility] Last Admin: 05/22/18 17:35 Dose: 80 mg Sodium Bicarbonate (Sodium Bicarbonate Tab) 650 mg PO BID [facility] Last Admin: 05/20/18 09:36 Dose: 650 mg Tamsulosin HCl (Flomax) 0.4 mg PO DAILY [facility] Last Admin: 05/22/18 10:24 Dose: 0.4 mg Vitamin B Complex/Vit C/Folic Acid (Nephro-Tin) 1 tab PO 0800 [facility] Last Admin: 05/22/18 09:00 Dose: 1 tab - Labs Labs: 05/22/18 06:32 05/22/18 06:32 PT 12.3 SECONDS (9.7-12.2) H 05/19/18 13:23 INR 1.1 05/19/18 13:23 APTT 34 SECONDS (21-34) 05/19/18 13:23 Attending/Attestation - Attestation I have personally seen and examined this patient.: Yes I have fully participated in the care of the patient.: Yes I have reviewed all pertinent clinical information, including history, physical exam and plan: Yes Notes (Text): This is late computer entry for 05/20/18. Patient seen, examined with day-time resident. This is my first time with the patient. Patient with history noted for hypertension, dementia, diabetes, and ckd noted symptoms of shortness of breathe, abdominal distension, diarrhea episodes. Reviewed CT Chest/Abdomen/Pelvis CT findings. Given abdominal distension and diarrhea, will order for CT abdomen/pelvis with PO contrast. Resident has spoken with patient's pharmacy to confirm medications. Will start lasix to help with diuresis. Order for venous doppler r/o dvt. Assessment/Plan Shortness of breath Assessment/Plan * Pulmonary (Dr. Sanches) on case-->help appreciated * Chest xray: No active disease * CT abdomen, chest and pelvis w/o contrast (05/20/18) showed small bilateral pleural effusion. no pulmonary infiltrate. Cardiomegaly with coronary arterial calcification. Cholelithiasis without evidence of cholecystitis. Mild right renal atrophy. Pancolonic diverticulosis without evidence of diverticulitis. * monitor probnp * Medications: Breo Ellipta 100-25mcg 1 puff q12h Duoneb q6 for next 24 hours Lasix 20 mg IVP daily Epigastric pain with diarrhea Assessment/Plan * CT Chest/Abdomen/Pelvis (05/20/18): small bilateral pleural effusion. No pulmonary infiltrate. Cardiomegaly with coronary arterial calcification. Cholelithiasis without evidence of cholecystitis. Mild renal renal atropgy. P ancolonic diverticulosis without evidence of diverticulitis. Severe multilevel degenerative disc disease with grade 1 retrolishtesis at L3-L4. * Ordered for CT abdomen/pelvis with PO contrast given abdominal distension and diarrhea * Pending stool studies HTN urgency Assessment/Plan * Hydralazine 100mg PO TID * Lopressor 50mg PO BID * Lasix 20mg IV daily * Monitor blood pressure Chronic Kidney Disease, Stage 4 Assessment/Plan * Nephrology (Dr. Ball) on consult-->help appreciated * prior renal US from december 2017 * Sodium bicarbonate tabs on hold * monitor BUN/Cr Hx of Diabetes Assessment/Plan * Hg A1C is 5.7 * Hold home medication Januvia 25mg PO Daily * ISS Low ACHS * Hypoglycemic protocol Hx of Low Vit D level Assessment/Plan * Vit D level normal * Pharmacy shows no prescription for home vitamin d Hx of Left Anterior Fasicular Block Assessment/Plan Criteria: Left axis deviation Small Q waves w/ tall R waves in leads I, and aVL Small R waves w/deep S waves in Leads II, III, aVF Prolonged R wave peak time in avl EKG unchanged when compared to June 2017 Hx of hypothyroidism Assessment/Plan * Continue home Levothyroxine 25 mcg daily * TSH, Free T4 are WNL Macrocytic anemia Assessment/Plan * Folate normal * vitamin b12 low at 177 Hx of Gout Assessment/Plan -Continue home allopurinol 100 mg po QD Hx of BPH Assessment/Plan * will Confirm with PMD Dr. Minaya Hx of Dementia Assessment/Plan * Continue home Aricept 10 mg PO daily, Memantine 10 mg PO BID * Per daughter at bedside, patient was diagnosed three years ago by PMD. Pulmonary Hypertension Elevated proBNP Assessment/Plan * Echocardiogram (07/17/17); mild concentricl left ventricular hypertrophy. left ventricular function is normal. mild aortic regurgitation is present. mild tricupsid valve regurgitation noted. estimated pulmonary systolic pressure is 53mmHG * Will repeat echo * monitor probnp * f/u cardiology; awaiting recommendation Leg Edema Assessment/Plan * related to heart failure? fluid overload given kidney status? * check venous doppler lower extremity Prophylactic measure * Heparin 5000 units sub8H Disposition: resident has spoken with pharmacy ton confirm medications for the patient; f/u CT abdomen/pelvis PO contrast; f/u pulm/cardio/nephrology
[2018-05-20 08:33] LABS: BASO % 0.1 % (0.0-2.0); HEMOGLOBIN 11.9 g/dL (12.0-18.0); LYMPH # 0.7 K/uL (1.0-4.3); LYMPH % 8.9 % (20.0-40.0); MEAN CELL VOLUME 101.9 fL (80.0-94.0); MEAN CORPUSCULAR HEMOGLOBIN 33.7 pg (27.0-31.0); MEAN CORPUSCULAR HGB CONC 33.1 g/dL (33.0-37.0); MEAN PLATELET VOLUME 10.4 fL (7.2-11.7); MONO # 0.1 K/uL (0.0-0.8); MONO % 0.8 % (0.0-10.0); NEUT % 90.2 % (50.0-75.0); PLATELET COUNT 140 K/uL (130-400); RBC 3.52 Mil/uL (4.40-5.90); RED CELL DISTRIBUTION WIDTH 14.8 % (11.5-14.5); WHITE BLOOD COUNT 7.8 K/uL (4.8-10.8)
--- NOTE | 2018-05-20 09:14 | CT ---
Date of service: 05/19/2018 PROCEDURE: CT Chest, Abdomen and Pelvis without intravenous contrast HISTORY: distended abdomen COMPARISON: None available. TECHNIQUE: Radiation dose: Total exam DLP = 1278.19 mGy-cm. This CT exam was performed using one or more of the following dose reduction techniques: Automated exposure control, adjustment of the mA and/or kV according to patient size, and/or use of iterative reconstruction technique. FINDINGS: CT CHEST WITHOUT CONTRAST: LUNGS: No infiltrate. Minimal bibasilar subsegmental atelectasis secondary to pleural effusion. MEDIASTINUM: No evidence of thoracic aortic aneurysm. There is atherosclerotic calcification of the thoracic aorta. Normal caliber main pulmonary artery. Mild cardiomegaly. Coronary arterial calcification. LYMPH NODES: Unremarkable. PLEURA: Small bilateral pleural effusion. No pneumothorax. BONES: Unremarkable. OTHER FINDINGS: None. CT ABDOMEN AND PELVIS: LIVER: Unremarkable. No gross lesion or ductal dilatation. GALLBLADDER AND BILE DUCTS: Cholelithiasis. No mural thickening or pericholecystic fluid. PANCREAS: Unremarkable. No gross lesion or ductal dilatation. SPLEEN: Unremarkable. ADRENALS: Unremarkable. No mass. KIDNEYS AND URETERS: Mild right renal atrophy. No renal mass, calculus or hydronephrosis. VASCULATURE: There is atherosclerotic calcification of the abdominal aorta. There is no evidence of abdominal aortic aneurysm. BOWEL: Kinney colonic diverticulosis. No evidence of diverticulitis. No bowel obstruction. APPENDIX: Normal appendix. PERITONEUM: Unremarkable. No free fluid. No free air. LYMPH NODES: Unremarkable. No enlarged lymph nodes. BLADDER: Unremarkable. REPRODUCTIVE: Normal prostate BONES: Extensive severe degenerative disc disease. No fracture. Grade 1 retrolisthesis at L L3-4, likely degenerative in origin. OTHER FINDINGS: None. IMPRESSION: Small bilateral pleural effusion. No pulmonary infiltrate. Cardiomegaly with coronary arterial calcification. Cholelithiasis without evidence of cholecystitis. Mild right renal atrophy. Pancolonic diverticulosis without evidence of diverticulitis. Severe multilevel degenerative disc disease with grade 1 retrolisthesis at L3-4. The preliminary findings for this examination were reported by [facility] at 8 p.m. on 05/19/2018. There is concurrence of this report with the preliminary findings.
--- NOTE | 2018-05-20 09:14 | CP.PCM.CON ---
History of Present Illness - History of Present Illness History of Present Illness: This patient who is 82 years of age male I was called to see him for abnormal kidney function. There is no much history from the patient that could be obtained however the medical record reviewed and revealed the following 82 year old male with a past medical history of hypertension, demntia, diabetes, and ?ckd who presents to the hospital complaining of shortness of breath for the past week. Patient states he gets winded when walking down the street. Patient also reports difficulty walking in conjunction with the shortness of breath. Patient states he only has difficulty breathing upon activity. Patient also report some lower extremity swelling for the past week since stopping his medication (?water pill) last week. Patient denies shortness of breath at rest. Patient denies any chest pain, fevers, chills, dizziness, or any other complaints. Patient also reports epigastric tenderness for the past week. Patient describes it as a gnawing pain. Patient also reports abdominal growth over the past week. Patient denies any pain in association with the abdominal swelling. Patient also reports four episodes of non-bloody diarrhea that occurred today. Patient denies any fevers, chills, recent travel, recent antibiotic usage, syncopal episodes, dizziness, headaches, or any other complaints. Medical history: hypertension, dementia, diabetes, ckd Allergies: Amlodipine Surgical history: neda Medications:Hydralazine 100mg PO TID, Sodium bicarbonate 650mg PO BID, Protonix 20mg PO Daily, Metoprolol Tartrate 50mg PO BID, Januvia 25mg PO Daily Social history: 20 year pack history. Denies alcohol abuse.Denies illicit drug use. Lives with . Performs ADL's without use of cane or walker. 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 Worked in [employer]. Review of Systems - Review of Systems Systems not reviewed;Unavailable: Dementia, Language Barrier - Constitutional Constitutional: absent: Chills - Cardiovascular Cardiovascular: absent: Acrocyanosis, Chest Pain, Leg Edema, Leg Ulcers, Orthopnea - Gastrointestinal Gastrointestinal: Abdominal Pain. absent: Coffee Ground Emesis, Vomiting - Genitourinary Genitourinary: Nocturia - Musculoskeletal Musculoskeletal: Muscle Weakness. absent: Numbness - Neurological Neurological: absent: Confusion - Endocrine Endocrine: Fatigue - Hematologic/Lymphatic Hematologic: absent: Easy Bleeding Past Patient History - Infectious Disease Hx of Infectious Diseases: None - Past Medical History & Family History Past Medical History?: Yes - Past Social History Smoking Status: Never Smoked - CARDIAC Hx Congestive Heart Failure: Yes Hx Hypertension: Yes - PULMONARY Hx Respiratory Disorders: No - NEUROLOGICAL Hx Dementia: Yes - HEENT Hx HEENT Problems: No - RENAL Hx Chronic Kidney Disease: Yes - ENDOCRINE/METABOLIC Hx Hypothyroidism: Yes - HEMATOLOGICAL/ONCOLOGICAL Hx Blood Disorders: No - INTEGUMENTARY Hx Dermatological Problems: No - MUSCULOSKELETAL/RHEUMATOLOGICAL Hx Arthritis: Yes - GASTROINTESTINAL Hx Gastrointestinal Disorders: No - GENITOURINARY/GYNECOLOGICAL Hx Genitourinary Disorders: No - PSYCHIATRIC Hx Substance Use: No - SURGICAL HISTORY Hx Surgeries: No - ANESTHESIA Hx Anesthesia: No Meds Allergies/Adverse Reactions: Allergies Allergy/AdvReac Type Severity Reaction Status Date / Time amlodipine Allergy Verified 05/19/18 13:18 - Medications Medications: Current Medications Acetaminophen (Tylenol 325mg Tab) 650 mg PO Q6 PRN PRN Reason: Pain, Mild (1-3) Albuterol/Ipratropium (Duoneb 3 Mg/0.5 Mg (3 Ml) Ud) 3 ml INH RQ6 [facility] Last Admin: 05/20/18 02:15 Dose: 3 ml Fluticasone/Vilanterol (Breo Ellipta 100-25 Mcg Inh) 1 puff INH RQ12 [facility] Last Admin: 05/19/18 20:58 Dose: 1 puff Furosemide (Lasix) 20 mg IVP DAILY [facility] Heparin Sodium (Porcine) (Heparin) 5,000 units SC Q8 [facility] Last Admin: 05/20/18 05:10 Dose: 5,000 units Hydralazine HCl (Apresoline) 100 mg PO TID [facility] Last Admin: 05/19/18 18:08 Dose: 100 mg Insulin Human Regular (Novolin R) 0 unit SC ACHS [facility]; Protocol Last Admin: 05/19/18 21:33 Dose: Not Given Metoprolol Tartrate (Lopressor) 50 mg PO BID [facility] Sodium Bicarbonate (Sodium Bicarbonate Tab) 650 mg PO BID [facility] Last Admin: 05/19/18 20:20 Dose: 650 mg Physical Exam - Constitutional Appears: No Acute Distress - ENT Exam ENT Exam: Mucous Membranes Moist - Neck Exam Neck exam: Negative for: Lymphadenopathy - Respiratory Exam Respiratory Exam: NORMAL BREATHING PATTERN. absent: Chest Wall Tenderness, Rhonchi - Cardiovascular Exam Cardiovascular Exam: absent: Gallop, JVD, Rubs - GI/Abdominal Exam GI & Abdominal Exam: Normal Bowel Sounds. absent: Guarding - Extremities Exam Extremities exam: Negative for: calf tenderness - Back Exam Back exam: absent: CVA tenderness (L), CVA tenderness (R) - Neurological Exam Neurological exam: Alert Results - Vital Signs Recent Vital Signs: Last Vital Signs Temp 97.7 F 05/20/18 07:00 Pulse 85 05/20/18 07:00 Resp 20 05/20/18 07:00 BP 169/79 H 05/20/18 07:00 Pulse Ox 95 05/20/18 07:00 - Labs Result Diagrams: 05/20/18 08:27 05/20/18 01:51 Labs: Laboratory Results - last 24 hr 05/19/18 05/19/18 05/19/18 13:23 13:23 13:23 WBC 8.5 RBC 3.46 L Hgb 11.5 L D Hct 35.1 MCV 101.4 H D MCH 33.2 H MCHC 32.8 L RDW 14.9 H Plt Count 123 L D MPV 10.3 Neut % (Auto) 49.6 L Lymph % (Auto) 25.6 [place] % (Auto) 8.0 Eos % (Auto) 16.1 H Baso % (Auto) 0.7 Neut # (Auto) 4.2 Lymph # (Auto) 2.2 [place] # (Auto) 0.7 Eos # (Auto) 1.4 H Baso # (Auto) 0.1 Differential Comment PT 12.3 H INR 1.1 APTT 34 Sodium 138 Potassium 4.9 Chloride 103 Carbon Dioxide 28 Anion Gap 12 BUN 32 H Creatinine 2.8 H Est GFR ( Amer) 26 Est GFR (Non-Af Amer) 22 POC Glucose (mg/dL) Random Glucose 91 Hemoglobin A1c Calcium 8.7 Phosphorus Magnesium Total Bilirubin 1.1 AST 27 ALT 31 Alkaline Phosphatase 138 H D Troponin I 0.0170 NT-Pro-B Natriuret Pep 8560 H Total Protein 7.5 Albumin 4.3 Globulin 3.3 Albumin/Globulin Ratio 1.3 Vitamin B12 25-OH Vitamin D Total Folate Free T4 TSH 3rd Generation Urine Color Urine Clarity Urine pH Ur Specific [place] Urine Protein Urine Glucose (UA) Urine Ketones Urine Blood Urine Nitrate Urine Bilirubin Urine Urobilinogen Ur Leukocyte Esterase Urine WBC (Auto) 05/19/18 05/19/18 05/19/18 14:18 20:54 20:54 WBC RBC Hgb Hct MCV MCH MCHC RDW Plt Count MPV Neut % (Auto) Lymph % (Auto) [place] % (Auto) Eos % (Auto) Baso % (Auto) Neut # (Auto) Lymph # (Auto) [place] # (Auto) Eos # (Auto) Baso # (Auto) Differential Comment PT INR APTT Sodium Potassium Chloride Carbon Dioxide Anion Gap BUN Creatinine Est GFR ( Amer) Est GFR (Non-Af Amer) POC Glucose (mg/dL) Random Glucose Hemoglobin A1c Calcium Phosphorus Magnesium Total Bilirubin AST ALT Alkaline Phosphatase Troponin I NT-Pro-B Natriuret Pep Total Protein Albumin Globulin Albumin/Globulin Ratio Vitamin B12 25-OH Vitamin D Total Folate Free T4 1.52 TSH 3rd Generation 4.05 Urine Color Yellow Urine Clarity Clear Urine pH 6.0 Ur Specific [place] 1.009 Urine Protein 1+ H Urine Glucose (UA) Normal Urine Ketones Negative Urine Blood Negative Urine Nitrate Negative Urine Bilirubin Negative Urine Urobilinogen Normal Ur Leukocyte Esterase Neg Urine WBC (Auto) < 1 05/19/18 05/19/18 05/19/18 20:54 20:54 20:54 WBC RBC Hgb Hct MCV MCH MCHC RDW Plt Count MPV Neut % (Auto) Lymph % (Auto) [place] % (Auto) Eos % (Auto) Baso % (Auto) Neut # (Auto) Lymph # (Auto) [place] # (Auto) Eos # (Auto) Baso # (Auto) Differential Comment PT INR APTT Sodium Potassium Chloride Carbon Dioxide Anion Gap BUN Creatinine Est GFR ( Amer) Est GFR (Non-Af Amer) POC Glucose (mg/dL) Random Glucose Hemoglobin A1c 5.7 Calcium Phosphorus Magnesium Total Bilirubin AST ALT Alkaline Phosphatase Troponin I 0.0120 NT-Pro-B Natriuret Pep Total Protein Albumin Globulin Albumin/Globulin Ratio Vitamin B12 177 L 25-OH Vitamin D Total 44.9 Folate 11.9 Free T4 TSH 3rd Generation Urine Color Urine Clarity Urine pH Ur Specific [place] Urine Protein Urine Glucose (UA) Urine Ketones Urine Blood Urine Nitrate Urine Bilirubin Urine Urobilinogen Ur Leukocyte Esterase Urine WBC (Auto) 05/19/18 05/20/18 05/20/18 20:57 01:51 06:18 WBC RBC Hgb Hct MCV MCH MCHC RDW Plt Count MPV Neut % (Auto) Lymph % (Auto) [place] % (Auto) Eos % (Auto) Baso % (Auto) Neut # (Auto) Lymph # (Auto) [place] # (Auto) Eos # (Auto) Baso # (Auto) Differential Comment PT INR APTT Sodium 137 Potassium 4.7 Chloride 104 Carbon Dioxide 21 L Anion Gap 17 BUN 39 H Creatinine 3.4 H Est GFR ( Amer) 21 Est GFR (Non-Af Amer) 17 POC Glucose (mg/dL) 195 H 163 H Random Glucose 188 H D Hemoglobin A1c Calcium 8.5 L Phosphorus 2.3 L Magnesium 1.6 Total Bilirubin 0.8 AST 28 ALT 22 Alkaline Phosphatase 125 Troponin I < 0.0120 NT-Pro-B Natriuret Pep Total Protein 7.1 Albumin 4.0 Globulin 3.1 Albumin/Globulin Ratio 1.3 Vitamin B12 25-OH Vitamin D Total Folate Free T4 TSH 3rd Generation Urine Color Urine Clarity Urine pH Ur Specific [place] Urine Protein Urine Glucose (UA) Urine Ketones Urine Blood Urine Nitrate Urine Bilirubin Urine Urobilinogen Ur Leukocyte Esterase Urine WBC (Auto) 05/20/18 08:27 WBC 7.8 RBC 3.52 L Hgb 11.9 L Hct 35.9 MCV 101.9 H MCH 33.7 H MCHC 33.1 RDW 14.8 H Plt Count 140 MPV 10.4 Neut % (Auto) 90.2 H Lymph % (Auto) 8.9 L [place] % (Auto) 0.8 Eos % (Auto) 0.0 Baso % (Auto) 0.1 Neut # (Auto) 7.0 Lymph # (Auto) 0.7 L [place] # (Auto) 0.1 Eos # (Auto) 0.0 Baso # (Auto) 0.0 Differential Comment PT INR APTT Sodium Potassium Chloride Carbon Dioxide Anion Gap BUN Creatinine Est GFR ( Amer) Est GFR (Non-Af Amer) POC Glucose (mg/dL) Random Glucose Hemoglobin A1c Calcium Phosphorus Magnesium Total Bilirubin AST ALT Alkaline Phosphatase Troponin I NT-Pro-B Natriuret Pep Total Protein Albumin Globulin Albumin/Globulin Ratio Vitamin B12 25-OH Vitamin D Total Folate Free T4 TSH 3rd Generation Urine Color Urine Clarity Urine pH Ur Specific [place] Urine Protein Urine Glucose (UA) Urine Ketones Urine Blood Urine Nitrate Urine Bilirubin Urine Urobilinogen Ur Leukocyte Esterase Urine WBC (Auto) Assessment & Plan (1) Congestive heart failure Status: Acute (2) Chronic kidney disease, stage IV (severe) Assessment and Plan: It appears that this patient have chronic kidney disease is stage IV at this point. Have previous kidney function as of now kidney failure most likely secondary to diabetic nephropathy since he has long history and may be hypertension as well He was diagnosis in the record to have congestive heart failure Recommendation Ultrasound of the kidney Stat spot urine for ratio of protein to creatinine PTH Patient may not need sodium bicarbonate with CO2 of about 28 suggest to discontinue for now Glycemic control Hypertension to be controlled Renal diabetic diet Treatment of CHF Status: Acute
[2018-05-20 10:05] LABS: ANISOCYTOSIS SLIGHT; BANDS 1 % (0-2); HYPOCHROMIC SLIGHT; LYMPHOCYTE 9 % (20-40); NEUTROPHIL 90 % (50-75); PLATELET ESTIMATE NORMAL (NORMAL); POIKILOCYTOSIS SLIGHT; TOTAL CELLS COUNTED 100
[2018-05-20 10:06] LABS: LARGE PLATELETS PRESENT
--- NOTE | 2018-05-20 11:30 | CARD ---
APPROVED REPORT Date of service: 05/19/2018 EKG Measurement Heart [id number] <Conclusion> Sinus bradycardia Possible Left atrial enlargement Left axis deviation Left ventricular hypertrophy Abnormal ECG
[2018-05-20 12:51] LABS: CREATININE, RANDOM URINE 33.1 mg/dL
[2018-05-20] MEDS: Fluticasone-Vilanterol 100/25mcg Diskus INH SCH ×2 (13:29→19:11)
[2018-05-20] MEDS: (Novolin R) Insulin Human Regular 100 units/ml vial SC SCH ×3 (13:59→21:30)
[2018-05-20] MEDS ORDERED: Iohexol 240 (50 ml) PO ONE (17:00)
--- NOTE | 2018-05-20 17:52 | CP.PCM.CON ---
History of Present Illness - History of Present Illness History of Present Illness: Patient is an 82 year old male with a PMHx of HTN, demntia, diabetes, and ckd who came to the hospital for SOB. We were consulted for evaluation of his SOB Patient seen an examined at bedside Patient is well and reports no acute events over night He states he is feeling better since his admission Afebrile with saturation at 95% on room air Denies CP, nausea, vomiting, fever PMH: HTN, dementia, diabetes, ckd PSHx: denies Medications: as per EMR Allergies: Amlodipine Social: Smoker- 20 year pack hx , denies alcohol or illicit drug use. Physical exam General: AAOx2 Cardio: no murmurs, RRR Pulmonary: bilateral mild wheezing Abdominal: soft, nondistended A/P Pleural effusion secondary to CKD rule out CHF, -Consider echocardiogram -continue nebulizer -continue Breo Ellipta -chest xray 05/19/18: no active disease -chest ct 05/20/18: small bilateral pleural effusion, no pulmonary infiltrate, cardiomegaly with coronary arterial calcification, cholelithiasis without evidence of cholecystitis, mild right renal atrophy, pancolonic diverticulosis without evidence of diverticulitis, severe multilevel degenerative disc disease with grade 1 retrolisthesis at L3-4 Past Patient History - Infectious Disease Hx of Infectious Diseases: None - Past Medical History & Family History Past Medical History?: Yes - Past Social History Smoking Status: Never Smoked - CARDIAC Hx Congestive Heart Failure: Yes Hx Hypertension: Yes - PULMONARY Hx Respiratory Disorders: No - NEUROLOGICAL Hx Dementia: Yes - HEENT Hx HEENT Problems: No - RENAL Hx Chronic Kidney Disease: Yes - ENDOCRINE/METABOLIC Hx Diabetes Mellitus Type 2: Yes Hx Hypothyroidism: Yes - HEMATOLOGICAL/ONCOLOGICAL Hx Blood Disorders: No - INTEGUMENTARY Hx Dermatological Problems: No - MUSCULOSKELETAL/RHEUMATOLOGICAL Hx Arthritis: Yes - GASTROINTESTINAL Hx Gastrointestinal Disorders: No - GENITOURINARY/GYNECOLOGICAL Hx Genitourinary Disorders: No - PSYCHIATRIC Hx Substance Use: No - SURGICAL HISTORY Hx Surgeries: No - ANESTHESIA Hx Anesthesia: No Meds Allergies/Adverse Reactions: Allergies Allergy/AdvReac Type Severity Reaction Status Date / Time amlodipine Allergy Verified 05/19/18 13:18 - Medications Medications: Current Medications Acetaminophen (Tylenol 325mg Tab) 650 mg PO Q6 PRN PRN Reason: Pain, Mild (1-3) Albuterol/Ipratropium (Duoneb 3 Mg/0.5 Mg (3 Ml) Ud) 3 ml INH RQ6 [facility] Last Admin: 05/20/18 13:29 Dose: 3 ml Donepezil HCl (Aricept) 10 mg PO HS [facility] Fluticasone/Vilanterol (Breo Ellipta 100-25 Mcg Inh) 1 puff INH RQ12 [facility] Last Admin: 05/20/18 13:29 Dose: 1 puff Furosemide (Lasix) 20 mg IVP DAILY [facility] Last Admin: 05/20/18 09:36 Dose: 20 mg Heparin Sodium (Porcine) (Heparin) 5,000 units SC Q8 [facility] Last Admin: 05/20/18 14:05 Dose: 5,000 units Hydralazine HCl (Apresoline) 100 mg PO TID [facility] Last Admin: 05/20/18 17:18 Dose: 100 mg Insulin Human Regular (Novolin R) 0 unit SC ACHS [facility]; Protocol Last Admin: 05/20/18 17:18 Dose: 1 unit Memantine (Namenda) 10 mg PO BID [facility] Last Admin: 05/20/18 17:18 Dose: 10 mg Metoprolol Tartrate (Lopressor) 50 mg PO BID [facility] Last Admin: 05/20/18 17:18 Dose: 50 mg Sodium Bicarbonate (Sodium Bicarbonate Tab) 650 mg PO BID [facility] Last Admin: 05/20/18 09:36 Dose: 650 mg Results - Vital Signs Recent Vital Signs: Last Vital Signs Temp 97.8 F 05/20/18 16:00 Pulse 79 05/20/18 16:00 Resp 20 05/20/18 16:00 BP 161/68 H 05/20/18 16:00 Pulse Ox 94 L 05/20/18 16:00 - Labs Result Diagrams: 05/20/18 08:27 05/20/18 01:51 Labs: Laboratory Results - last 24 hr 05/19/18 05/19/18 05/19/18 20:54 20:54 20:54 WBC RBC Hgb Hct MCV MCH MCHC RDW Plt Count MPV Neut % (Auto) Lymph % (Auto) [place] % (Auto) Eos % (Auto) Baso % (Auto) Neut # (Auto) Lymph # (Auto) [place] # (Auto) Eos # (Auto) Baso # (Auto) Neutrophils % (Manual) Band Neutrophils % Lymphocytes % (Manual) Monocytes % (Manual) Platelet Estimate Large Platelets Hypochromasia (manual) Poikilocytosis (manual Anisocytosis (manual) Sodium Potassium Chloride Carbon Dioxide Anion Gap BUN Creatinine Est GFR ( Amer) Est GFR (Non-Af Amer) POC Glucose (mg/dL) Random Glucose Hemoglobin A1c Calcium Phosphorus Magnesium Total Bilirubin AST ALT Alkaline Phosphatase Troponin I NT-Pro-B Natriuret Pep Total Protein Albumin Globulin Albumin/Globulin Ratio Vitamin B12 25-OH Vitamin D Total 44.9 Folate Free T4 1.52 TSH 3rd Generation 4.05 Ur Random Creatinine U Random Total Protein 05/19/18 05/19/18 05/19/18 20:54 20:54 20:57 WBC RBC Hgb Hct MCV MCH MCHC RDW Plt Count MPV Neut % (Auto) Lymph % (Auto) [place] % (Auto) Eos % (Auto) Baso % (Auto) Neut # (Auto) Lymph # (Auto) [place] # (Auto) Eos # (Auto) Baso # (Auto) Neutrophils % (Manual) Band Neutrophils % Lymphocytes % (Manual) Monocytes % (Manual) Platelet Estimate Large Platelets Hypochromasia (manual) Poikilocytosis (manual Anisocytosis (manual) Sodium Potassium Chloride Carbon Dioxide Anion Gap BUN Creatinine Est GFR ( Amer) Est GFR (Non-Af Amer) POC Glucose (mg/dL) 195 H Random Glucose Hemoglobin A1c 5.7 Calcium Phosphorus Magnesium Total Bilirubin AST ALT Alkaline Phosphatase Troponin I 0.0120 NT-Pro-B Natriuret Pep Total Protein Albumin Globulin Albumin/Globulin Ratio Vitamin B12 177 L 25-OH Vitamin D Total Folate 11.9 Free T4 TSH 3rd Generation Ur Random Creatinine U Random Total Protein 05/20/18 05/20/18 05/20/18 01:51 06:18 08:27 WBC 7.8 RBC 3.52 L Hgb 11.9 L Hct 35.9 MCV 101.9 H MCH 33.7 H MCHC 33.1 RDW 14.8 H Plt Count 140 MPV 10.4 Neut % (Auto) 90.2 H Lymph % (Auto) 8.9 L [place] % (Auto) 0.8 Eos % (Auto) 0.0 Baso % (Auto) 0.1 Neut # (Auto) 7.0 Lymph # (Auto) 0.7 L [place] # (Auto) 0.1 Eos # (Auto) 0.0 Baso # (Auto) 0.0 Neutrophils % (Manual) 90 H Band Neutrophils % 1 Lymphocytes % (Manual) 9 L Monocytes % (Manual) TEST NOT PERFORMED Platelet Estimate Normal Large Platelets Present Hypochromasia (manual) Slight Poikilocytosis (manual Slight Anisocytosis (manual) Slight Sodium 137 Potassium 4.7 Chloride 104 Carbon Dioxide 21 L Anion Gap 17 BUN 39 H Creatinine 3.4 H Est GFR ( Amer) 21 Est GFR (Non-Af Amer) 17 POC Glucose (mg/dL) 163 H Random Glucose 188 H D Hemoglobin A1c Calcium 8.5 L Phosphorus 2.3 L Magnesium 1.6 Total Bilirubin 0.8 AST 28 ALT 22 Alkaline Phosphatase 125 Troponin I < 0.0120 NT-Pro-B Natriuret Pep Total Protein 7.1 Albumin 4.0 Globulin 3.1 Albumin/Globulin Ratio 1.3 Vitamin B12 25-OH Vitamin D Total Folate Free T4 TSH 3rd Generation Ur Random Creatinine U Random Total Protein 05/20/18 05/20/18 09:59 12:21 WBC RBC Hgb Hct MCV MCH MCHC RDW Plt Count MPV Neut % (Auto) Lymph % (Auto) [place] % (Auto) Eos % (Auto) Baso % (Auto) Neut # (Auto) Lymph # (Auto) [place] # (Auto) Eos # (Auto) Baso # (Auto) Neutrophils % (Manual) Band Neutrophils % Lymphocytes % (Manual) Monocytes % (Manual) Platelet Estimate Large Platelets Hypochromasia (manual) Poikilocytosis (manual Anisocytosis (manual) Sodium Potassium Chloride Carbon Dioxide Anion Gap BUN Creatinine Est GFR ( Amer) Est GFR (Non-Af Amer) POC Glucose (mg/dL) Random Glucose Hemoglobin A1c Calcium Phosphorus Magnesium Total Bilirubin AST ALT Alkaline Phosphatase Troponin I NT-Pro-B Natriuret Pep 55552 H Total Protein Albumin Globulin Albumin/Globulin Ratio Vitamin B12 25-OH Vitamin D Total Folate Free T4 TSH 3rd Generation Ur Random Creatinine 33.1 U Random Total Protein 17.0 H
[2018-05-21 07:27] LABS: BASO % 0.1 % (0.0-2.0); EOS % 0.1 % (0.0-4.0); HEMOGLOBIN 10.8 g/dL (12.0-18.0); LYMPH # 1.8 K/uL (1.0-4.3); LYMPH % 14.5 % (20.0-40.0); MEAN CELL VOLUME 100.5 fL (80.0-94.0); MEAN CORPUSCULAR HEMOGLOBIN 33.5 pg (27.0-31.0); MEAN CORPUSCULAR HGB CONC 33.3 g/dL (33.0-37.0); MEAN PLATELET VOLUME 10.4 fL (7.2-11.7); MONO # 0.8 K/uL (0.0-0.8); MONO % 6.7 % (0.0-10.0); NEUT # 9.9 K/uL (1.8-7.0); NEUT % 78.6 % (50.0-75.0); RBC 3.23 Mil/uL (4.40-5.90); RED CELL DISTRIBUTION WIDTH 14.7 % (11.5-14.5)
[2018-05-21 07:31] LABS: WHITE BLOOD COUNT 12.6 K/uL (4.8-10.8)
[2018-05-21 08:07] LABS: ALB/GLOB RATIO 1.4 (1.0-2.1); ALBUMIN 3.8 g/dL (3.5-5.0); CALCIUM 8.8 mg/dl (8.6-10.4)
[2018-05-21] MEDS: Fluticasone-Vilanterol 100/25mcg Diskus INH SCH ×2 (08:09→19:00)
[2018-05-21] MEDS: Albuterol-Ipratrop 3 mg / 0.5 (3 ml) UD INH SCH ×3 (08:10→19:00)
[2018-05-21] MEDS: (Novolin R) Insulin Human Regular 100 units/ml vial SC SCH ×4 (08:16→21:31)
--- NOTE | 2018-05-21 08:31 | CP.PCM.PN ---
<Danyel Rendon - Last Filed: 05/21/18 18:51> Subjective - Date & Time of Evaluation Date of Evaluation: 05/21/18 Time of Evaluation: :19 - Subjective Subjective: PGY1 medicine progress note for Dr. Back Pt was seen and examined at bedside. Pt still reports resolution of diarrhea, nonbloody. No acute events overnight. He states that he had a dark bowel movement today, which he kept for stool studies. Inspection of stool shows formed but soft, dark green color stool. Pt denies fever, chills, chest pain, sob, abdominal pain, n/v/d, hematochezia, melena, lightheadedness, dizziness, urinary changes. Objective - Vital Signs/Intake and Output Vital Signs (last 24 hours): Temp Pulse Resp BP Pulse Ox 97.4 F L 74 18 150/71 95 05/21/18 07:00 05/21/18 07:00 05/21/18 07:00 05/21/18 07:00 05/21/18 07:00 - Medications Medications: Current Medications Acetaminophen (Tylenol 325mg Tab) 650 mg PO Q6 PRN PRN Reason: Pain, Mild (1-3) Albuterol/Ipratropium (Duoneb 3 Mg/0.5 Mg (3 Ml) Ud) 3 ml INH RQ6 [facility] Last Admin: 05/21/18 08:10 Dose: 3 ml Donepezil HCl (Aricept) 10 mg PO HS [facility] Last Admin: 05/20/18 21:34 Dose: 10 mg Fluticasone/Vilanterol (Breo Ellipta 100-25 Mcg Inh) 1 puff INH RQ12 [facility] Last Admin: 05/21/18 08:09 Dose: 1 puff Furosemide (Lasix) 20 mg IVP DAILY [facility] Last Admin: 05/20/18 09:36 Dose: 20 mg Heparin Sodium (Porcine) (Heparin) 5,000 units SC Q8 [facility] Last Admin: 05/21/18 05:22 Dose: 5,000 units Hydralazine HCl (Apresoline) 100 mg PO TID [facility] Last Admin: 05/20/18 17:18 Dose: 100 mg Piperacillin Sod/Tazobactam Sod (Zosyn 2.25 Gm Iv Premix) 2.25 gm in 50 mls @ 100 mls/hr IVPB Q8H [facility]; Protocol Insulin Human Regular (Novolin R) 0 unit SC ACHS [facility]; Protocol Last Admin: 05/21/18 08:16 Dose: Not Given Memantine (Namenda) 10 mg PO BID [facility] Last Admin: 05/20/18 17:18 Dose: 10 mg Metoprolol Tartrate (Lopressor) 50 mg PO BID [facility] Last Admin: 05/20/18 17:18 Dose: 50 mg Sodium Bicarbonate (Sodium Bicarbonate Tab) 650 mg PO BID [facility] Last Admin: 05/20/18 09:36 Dose: 650 mg - Labs Labs: 05/21/18 07:12 05/21/18 07:12 PT 12.3 SECONDS (9.7-12.2) H 05/19/18 13:23 INR 1.1 05/19/18 13:23 APTT 34 SECONDS (21-34) 05/19/18 13:23 - Additional Findings Additional findings: - Additional Findings Additional findings: - Head Exam Head Exam: ATRAUMATIC, NORMAL INSPECTION - Eye Exam Eye Exam: EOMI, Normal appearance, PERRL. - ENT Exam ENT Exam: Mucous Membranes Moist, Normal Oropharynx - Respiratory Exam Respiratory Exam: Decreased Breath Sounds, Rales at the bases bilaterally. absent: Wheezes, Respiratory Distress, NORMAL BREATHING PATTERN - Cardiovascular Exam Cardiovascular Exam: REGULAR RHYTHM, +S1, +S2. absent: JVD, RRR, Rubs, hepatojugular reflux - GI/Abdominal Exam GI & Abdominal Exam: Distended, Soft, nontender. absent: Hypoactive Bowel Sounds, Organomegaly, Pulsatile Mass, Tenderness - Extremities Exam Extremities exam: Positive for: pedal edema, thready pulses in distal lower extremities, 2+ pulses in bilateral upper extremities Additional comments: 1+ pitting edema to mid tibia - Neurological Exam Neurological exam: Alert, Oriented x3 - Psychiatric Exam Psychiatric exam: Normal Affect, Normal Mood - Skin Skin Exam: Dry, Intact, No pallor, good capillary refill Assessment and Plan - Assessment and Plan (Free Text) Assessment: 82 year old male with a past medical history of hypertension, dementia, ckd, being admitted for shortness of breath. Plan: Shortness of breath, resolved Possibly due to increased RVSP noted on prior echo -Chest xray: No active disease -CT abdomen, chest and pelvis w/o contrast showed small bilateral pleural effusion. no pulmonary infiltrate. Cardiomegaly with coronary arterial calcification. Cholelithiasis without evidence of cholecystitis. Mild right renal atrophy. Pancolonic diverticulosis without evidence of diverticulitis. -Bipap PRN: only if patient begins to decompensate (02/28 ; 60% O2) -pulmonolgy consulted, recommendations appreciated. -pro-BNP:8560[place] [address] today Medications: Breo Ellipata 100-25mcg 1 puff q12h Duoneb q6 for next 24 hours Lasix 20 mg IVP daily -Last echo 01/01/18 does NOT indicated heart failure, but with increased right ventricular systolic pressure (50 mmHg). LVEF is 65%, normal diastolic filling pressures. -F/u lower extremity venous dopplers official read, prelim read shows no evidence of DVT -F/u echocardiogram Epigastric pain with diarrhea Diffuse colitis on CT -Patient distended on exam. -Leukocytosis at 12.6 today, no bandemia, no tachycardia, pt afebrile -Chest/Abd/pelv Ct without contrast reading above. -Abd/Pelv CT with PO contrast prelim read shows diverticulosis with possible aerly localized area of early acute diverticulitis involving a short segment of the distal descending/sigmoid colon. Mild hepatomegaly. Extensive atheroscler otic vascular plaques. Small right pleural effusion, trace left pleural effusion, DJD of L2-S1. -Started on renally dosed zosyn 2.25 mg IVPB q8 (05/21) -Stool studies F/u with results -simethicone 80 mg PO BID Anemi, Macrocytic anemia -MCV is 100.5 -Folate normal -vitamin b12 low at 177 -Hgb dropped from 11.8 to 10.8 today Pt not hypotensive, tachycardic -FOBt is negative HTN urgency, resolved -BP-->196/85 on admission. -Given Clonidine .1mg and Lasix 40mg in the E.D. Medications: Continue home Hydralazine 100mg PO TID Metoprolol Tartrate 50mg PO BID increased to 100 mg PO BID as per nephro CKD stage 4 -Cr slightly increasing, today 3.8 -Per daughter at bedside. Patient only has one functioning kidney. 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 Advised daughter to obtain the name for records. -Will continue to monitor. -Nephrology Dr. Platt consulted. Per Dr. Ball, Ultrasound of the kidney, Stat spot urine for ratio of protein to creatinine, PTH, Patient may not need sodium bicarbonate with CO2 of about 28 suggest to discontinue for now. -Renal US 06/2017 shows small atrophic rigth kidney with evidence of renal parenchymal disease. two simple cysts in the interpolar region of the right kidney, the large measures 10 mm. 10 mm simple cyst in the upper pole of the left kidney. No hydronephrosis or nephrolithiasis. - added nephrovite 1 tab daily, increased metoprolol tartrate to 100 mg PO BID Hx of Diabetes -Hg A1C is 5.7 -Hold home medication Januvia 25mg PO Daily -ISS Low ACHS -Hypoglycemic protocol Hx of Low Vit D level -Vit D level normal -Pharmacy shows no prescription for home vitamin d Hx of Left Anterior Fasicular Block Criteria: Left axis deviation Small Q waves w/ tall R waves in leads I, and aVL Small R waves w/deep S waves in Leads II, III, aVF Prolonged R wave peak time in avl EKG unchanged when compared to June 2017 Hx of hypothyroidism -Continue home Levothyroxine 25 mcg daily -TSH, Free T4 are WNL Hx of Gout -Continue home allopurinol 100 mg po QD Hx of BPH -Continue home Tamsulosin 0.4 mg PO daily Hx of Dementia -Continue home Aricept 10 mg PO daily -Namenda decreased to 5 mg PO BID due to renal function -Per daughter at bedside, patient was diagnosed three years ago by PMD. PPX -Heparin SC 5000 Units q8 -Protonix 40 mg IVP daily -SCD's -HHD, 1.5L fluid restriction Family contact info: [facility]: Case discussed with Dr. Back <Maya Back V - Last Filed: 05/22/18 20:41> Objective - Vital Signs/Intake and Output Vital Signs (last 24 hours): Temp Pulse Resp BP Pulse Ox 97.8 F 86 18 163/84 H 98 05/22/18 15:00 05/22/18 18:15 05/22/18 18:15 05/22/18 18:15 05/22/18 18:15 Intake and Output: 05/22/18 05/23/18 18:59 06:59 Intake Total 720 Output Total 800 Balance -80 - Medications Medications: Current Medications Acetaminophen (Tylenol 325mg Tab) 650 mg PO Q6 PRN PRN Reason: Pain, Mild (1-3) Albuterol/Ipratropium (Duoneb 3 Mg/0.5 Mg (3 Ml) Ud) 3 ml INH RQ6 PRN PRN Reason: Shortness of Breath Donepezil HCl (Aricept) 10 mg PO HS [facility] Last Admin: 05/21/18 21:30 Dose: 10 mg Fluticasone/Vilanterol (Breo Ellipta 100-25 Mcg Inh) 1 puff INH RQ12 [facility] Last Admin: 05/22/18 20:20 Dose: 1 puff Heparin Sodium (Porcine) (Heparin) 5,000 units SC Q8 [facility] Last Admin: 05/22/18 13:29 Dose: 5,000 units Hydralazine HCl (Apresoline) 50 mg PO TID [facility] Last Admin: 05/22/18 17:35 Dose: 50 mg Piperacillin Sod/Tazobactam Sod (Zosyn 2.25 Gm Iv Premix) 2.25 gm in 50 mls @ 100 mls/hr IVPB Q8H [facility]; Protocol Last Admin: 05/22/18 17:37 Dose: 100 mls/hr Insulin Human Regular (Novolin R) 0 unit SC ACHS [facility]; Protocol Last Admin: 05/22/18 11:53 Dose: Not Given Isosorbide Mononitrate (Imdur Er) 30 mg PO DAILY [facility] Last Admin: 05/22/18 16:16 Dose: 30 mg Memantine (Namenda) 5 mg PO BID [facility] Last Admin: 05/22/18 17:35 Dose: 5 mg Metoprolol Tartrate (Lopressor) 100 mg PO BID [facility] Last Admin: 05/22/18 17:35 Dose: 100 mg Pantoprazole Sodium (Protonix Inj) 40 mg IVP DAILY [facility] Last Admin: 05/22/18 10:25 Dose: 40 mg Simethicone (Mylicon Chew Tab) 80 mg PO BID [facility] Last Admin: 05/22/18 17:35 Dose: 80 mg Sodium Bicarbonate (Sodium Bicarbonate Tab) 650 mg PO BID [facility] Last Admin: 05/20/18 09:36 Dose: 650 mg Tamsulosin HCl (Flomax) 0.4 mg PO DAILY [facility] Last Admin: 05/22/18 10:24 Dose: 0.4 mg Vitamin B Complex/Vit C/Folic Acid (Nephro-Tin) 1 tab PO 0800 [facility] Last Admin: 05/22/18 09:00 Dose: 1 tab - Labs Labs: 05/22/18 06:32 05/22/18 06:32 PT 12.3 SECONDS (9.7-12.2) H 05/19/18 13:23 INR 1.1 05/19/18 13:23 APTT 34 SECONDS (21-34) 05/19/18 13:23 Attending/Attestation - Attestation I have personally seen and examined this patient.: Yes I have fully participated in the care of the patient.: Yes I have reviewed all pertinent clinical information, including history, physical exam and plan: Yes Notes (Text): This is late computer entry for 05/21/18. Patient seen, examined and case discussed with day-time resident. Patient seen at bedside with his two daughters present. Patient reporting diarrhea is less frequent, per daughter abdominal distension is about the same. Edema over the lower extremities is less. Discussed case with nephrology. Pending repeat echocardiogram. Reconsult cardiology test consultant. Patient noted mild white count rise; ordered for baseline cultures. Afebrile. Patient's hemoglobin is more or less stable. Stool occult blood is negative, not suspecting gi bleed; given renal status likely anemia of chronic disease. Assessment/Plan Shortness of breath Assessment/Plan * Pulmonary (Dr. Sanches) on case-->help appreciated * Chest xray: No active disease * CT abdomen, chest and pelvis w/o contrast (05/20/18) showed small bilateral pleural effusion. no pulmonary infiltrate. Cardiomegaly with coronary arterial calcification. Cholelithiasis without evidence of cholecystitis. Mild right renal atrophy. Pancolonic diverticulosis without evidence of diverticulitis. * CT Abdomen/pelvis PO contrast (05/21/18): small to medium size, right sided effusion, and tiny left sided effusion minor bibasilar atelectasis. Some mild localized scarring in the middle lobe and lingular regions. Diverticulosis with possible early localized area of early acute diverticulitis involving short segment of distal descending/sigmoid colon. Cholelithiasis. Atrophic changes right kidney unchanged. * monitor probnp * Medications: Breo Ellipta 100-25mcg 1 puff q12h Duoneb q6 for next 24 hours Lasix 20 mg IVP daily Epigastric pain with diarrhea Diverticulitis Assessment/Plan * CT Chest/Abdomen/Pelvis (05/20/18): small bilateral pleural effusion. No pulmonary infiltrate. Cardiomegaly with coronary arterial calcification. Cholelithiasis without evidence of cholecystitis. Mild renal renal atropgy. Pancolonic diverticulosis without evidence of diverticulitis. Severe multilevel degenerative disc disease with grade 1 retrolishtesis at L3-L4. * CT Abdomen/pelvis PO contrast (05/21/18): small to medium size, right sided effusion, and tiny left sided effusion minor bibasilar atelectasis. Some mild localized scarring in the middle lobe and lingular regions. Diverticulosis with possible early localized area of early acute diverticulitis involving short segment of distal descending/sigmoid colon. Cholelithiasis. Atrophic changes right kidney unchanged. * Patient started on Zosyn to empiric antibiotic treatment * Pending stool studies HTN uncontrolled Assessment/Plan * Hydralazine 100mg PO TID * Lopressor 50mg PO BID * Lasix 20mg IV daily * Monitor blood pressure Chronic Kidney Disease, Stage 4 Assessment/Plan * Nephrology (Dr. Ball) on consult-->help appreciated * prior renal US from december 2017 * Sodium bicarbonate tabs on hold * monitor BUN/Cr Hx of Diabetes Assessment/Plan * Hg A1C is 5.7 * Hold home medication Januvia 25mg PO Daily * ISS Low ACHS * Hypoglycemic protocol Hx of Low Vit D level Assessment/Plan * Vit D level normal * Pharmacy shows no prescription for home vitamin d Hx of Left Anterior Fasicular Block Assessment/Plan Criteria: Left axis deviation Small Q waves w/ tall R waves in leads I, and aVL Small R waves w/deep S waves in Leads II, III, aVF Prolonged R wave peak time in avl EKG unchanged when compared to June 2017 Hx of hypothyroidism Assessment/Plan * Continue home Levothyroxine 25 mcg daily * TSH, Free T4 are WNL Macrocytic anemia Assessment/Plan * Folate normal * vitamin b12 low at 177 Hx of Gout Assessment/Plan * Continue home allopurinol 100 mg po QD Hx of BPH Assessment/Plan * will Confirm with PMD Dr. Minaya Hx of Dementia Assessment/Plan * Continue home Aricept 10 mg PO daily, Memantine 10 mg PO BID * Per daughter at bedside, patient was diagnosed three years ago by PMD. Pulmonary Hypertension Elevated proBNP Assessment/Plan * Echocardiogram (07/17/17); mild concentricl left ventricular hypertrophy. left ventricular function is normal. mild aortic regurgitation is present. mild tricupsid valve regurgitation noted. estimated pulmonary systolic pressure is 53mmHG * Will repeat echo * monitor probnp: downtrending * f/u cardiology; awaiting recommendation Leg Edema Assessment/Plan * related to heart failure? fluid overload given kidney status? * check venous doppler lower extremity pending official report * improving Prophylactic measure * Heparin 5000 units sub8H Disposition: f/u cultures. started on renal dose Zosyn given diverticulitis; f/u echo and f/u cardio/pulm/renal
[2018-05-21] MEDS: Piperacill/Tazo 2.25gm in Dex 2.25 GM/50 ML BAG IVPB SCH ×2 (11:03→17:22)
--- NOTE | 2018-05-21 12:16 | CP.PCM.PN ---
Subjective - Date & Time of Evaluation Date of Evaluation: 05/21/18 Time of Evaluation: 12:13 - Subjective Subjective: Nephrology Consultation Note: Assessment: Stable CHESTER likely hemodynamic Chronic Kidney Disease (N18.4) Stage 4 with 150 mg proteinuria (R80.9), rt renal atrophy likely due to atherosclerotic vasc disease dCHF exacerbation , hypothyroidism Hypertensive Chronic Kidney Disease (I12.9) HTN (I12.9) chronic NSAIDs use in past PVR 42 mL Plan No acute need for renal replacement therapy at this time. Hypertension control with meds as ordered. Patient not on ACEI/ARB as due to advanced CKD and CHESTER. increase lopressor 100 bid continue with flomax 0.4 mg/day pt on lasix IV, can change to oral added nephrovite [address] abdomen reviewed, has known Rt renal atrophy. Dose meds/antibiotics for reduced GFR. Avoid fleets enema/magnesium based laxatives. Avoid nephrotoxins/NSAIDs/ iodinated contrast (unless needed emergently) Glycemic control Further work up/management as per primary team Thanks for allowing me to participate in care of your patient. Will follow patient with you. Please call if any Qs. had d/w team Dr Yuan Platt Office: [phone] ROS: Cardiovascular: No chest pain. Pulmonary: No shortness of breath Gastrointestinal: denies abdominal pain No nausea. No vomiting. Genitourinary: No pain while urinating. Denies blood in urine. pt with dementia, ROS overall limited Rest all other negative except as mentioned in HPI Physical Examination: General Appearance: Comfortable, in no acute respiratory distress, co-operative . Vitals reviewed and noted as below Head; Atraumatic, normocephalic ENT: no ulcers no thrush. Tongue is midline. Oropharynx: no rash or ulcers. EYES: Pupils are equal, round and reactive to light accommodation. Eye muscles and extraocular movement intact. Sclera is anicteric. Neck; supple no lymphadenopathy, no thyromegaly or bruit Lungs: Normal respiratory rate/effort. Breath sounds bilateral equal. occasional basal crackle + Heart: Normal rate. s1s2 normal. No rub or gallop. Extremities: trace edema. No varicose veins Neurological: Patient is alert, awake and demented. No focal deficit. Strength bilateral appropriate and equal Skin: Warm and dry. Normal turgor. No rash. Palpitation: Normal elasticity for age Abdomen: Abdomen is soft. Bowel sounds +. There is no abdominal tenderness, no guarding/rigidity or organomegaly Psych: lack insight and has normal affect/mood MSK: no joint tenderness or swelling. Digits and nails normal, no deformity : kidney or bladder not palpable Labs/imaging reviewed. Past medical history, past surgical history, family history, social history, allergy reviewed and noted as below Family Hx: no hx of CKD. Non contributory vit D 45 Phos 4.1 Objective - Vital Signs/Intake and Output Vital Signs (last 24 hours): Temp Pulse Resp BP Pulse Ox 97.4 F L 76 18 171/84 H 95 05/21/18 07:00 05/21/18 08:42 05/21/18 07:00 05/21/18 10:01 05/21/18 08:02 - Medications Medications: Current Medications Acetaminophen (Tylenol 325mg Tab) 650 mg PO Q6 PRN PRN Reason: Pain, Mild (1-3) Albuterol/Ipratropium (Duoneb 3 Mg/0.5 Mg (3 Ml) Ud) 3 ml INH RQ6 [facility] Last Admin: 05/21/18 08:10 Dose: 3 ml Donepezil HCl (Aricept) 10 mg PO HS [facility] Last Admin: 05/20/18 21:34 Dose: 10 mg Fluticasone/Vilanterol (Breo Ellipta 100-25 Mcg Inh) 1 puff INH RQ12 [facility] Last Admin: 05/21/18 08:09 Dose: 1 puff Furosemide (Lasix) 20 mg IVP DAILY [facility] Last Admin: 05/21/18 10:01 Dose: 20 mg Heparin Sodium (Porcine) (Heparin) 5,000 units SC Q8 [facility] Last Admin: 05/21/18 05:22 Dose: 5,000 units Hydralazine HCl (Apresoline) 100 mg PO TID [facility] Last Admin: 05/21/18 10:00 Dose: 100 mg Piperacillin Sod/Tazobactam Sod (Zosyn 2.25 Gm Iv Premix) 2.25 gm in 50 mls @ 100 mls/hr IVPB Q8H [facility]; Protocol Last Admin: 05/21/18 11:03 Dose: 100 mls/hr Insulin Human Regular (Novolin R) 0 unit SC ACHS [facility]; Protocol Last Admin: 05/21/18 12:09 Dose: 1 unit Memantine (Namenda) 5 mg PO BID [facility] Metoprolol Tartrate (Lopressor) 100 mg PO BID [facility] Pantoprazole Sodium (Protonix Inj) 40 mg IVP DAILY [facility] Last Admin: 05/21/18 10:00 Dose: 40 mg Simethicone (Mylicon Chew Tab) 80 mg PO BID [facility] Sodium Bicarbonate (Sodium Bicarbonate Tab) 650 mg PO BID [facility] Last Admin: 05/20/18 09:36 Dose: 650 mg Tamsulosin HCl (Flomax) 0.4 mg PO DAILY [facility] Last Admin: 05/21/18 11:07 Dose: 0.4 mg Vitamin B Complex/Vit C/Folic Acid (Nephro-Tin) 1 tab PO 0800 [facility] - Labs Labs: 05/21/18 07:12 05/21/18 07:12 PT 12.3 SECONDS (9.7-12.2) H 05/19/18 13:23 INR 1.1 05/19/18 13:23 APTT 34 SECONDS (21-34) 05/19/18 13:23
--- NOTE | 2018-05-21 16:11 | CT ---
Date of service: 05/20/2018 PROCEDURE: CT Abdomen and Pelvis with Oral contrast. HISTORY: Abdominal distention and diarrhea COMPARISON: Comparison made with prior CT scan of the abdomen pelvis 05/19/2018. TECHNIQUE: Contiguous axial images of the abdomen and pelvis. Oral contrast was administered. No IV contrast given. Coronal and Sagittal reformats generated. Radiation dose: Total exam DLP = 1181.6 mGy-cm. This CT exam was performed using one or more of the following dose reduction techniques: Automated exposure control, adjustment of the mA and/or kV according to patient size, and/or use of iterative reconstruction technique. FINDINGS: LOWER THORAX: There is a small to medium size right-sided effusion and tiny left-sided effusion minor bibasilar atelectasis.. Note that the left-sided effusion has diminished in size slightly. There may also be some mild localized scarring in the middle lobe and lingular regions. Heart appears mildly enlarged. No significant pericardial effusion. There is a small hiatal hernia. LIVER: Unremarkable. No gross lesion or ductal dilatation. GALLBLADDER AND BILE DUCTS: Cholelithiasis.. PANCREAS: Unremarkable. No mass. No ductal dilatation. Pancreas appears atrophic and fatty replaced. No obvious pancreatic masses or collections. See above discussion for additional details and findings. SPLEEN: Unremarkable. No splenomegaly. ADRENALS: No adrenal lesions. KIDNEYS AND URETERS: Redemonstrated is atrophic changes of the right kidney. No evidence of obstructing nephrolithiasis or hydronephrosis. BLADDER: The urinary bladder is incompletely distended which presumably in part accounts for thick-walled appearance. Muscular hypertrophy may contribute. Rule out cystitis. Correlation with urinalysis recommended. REPRODUCTIVE: Unremarkable as visualized.. APPENDIX: Normal-appearing appendix. BOWEL: Unremarkable. No obstruction. No gross mural thickening. Evaluation of the bowel is slightly limited due to incomplete opacification. Stomach is moderately distended with an admixture of are oral contrast material and liquified food debris as well as a small amount of air.. Visualized loops of small bowel exhibit normal contour and caliber. No evidence of acute mechanical small bowel obstruction. There is a moderate amount of stool seen within the cecum and ascending colon. Numerous colonic diverticula again noted the bulk which seen arising from the sigmoid and descending colon. There is a localized area of wall thickening at the level of the distal descending/sigmoid colon junction. No obvious infiltration changes in the adjacent mesentery however finding still may represent a very early acute diverticulitis. Clinical correlation is recommended. PERITONEUM: Unremarkable. No fluid collection. No free air. Small fat containing umbilical hernia. Note made of some vague infiltration changes in the subcutaneous fat left anterior lower abdominal wall LYMPH NODES: Unremarkable. No enlarged lymph nodes. VASCULATURE: Unremarkable. No aortic aneurysm. Mild moderate aortic atherosclerotic calcification or mural plaque present. BONES: Moderate to significant multilevel degenerative spondylosis of the lumbar and thoracic spine. There straightening of the normal lumbar lordosis. OTHER FINDINGS: None. IMPRESSION: Small to medium size right-sided effusion and tiny left-sided effusion minor bibasilar atelectasis.. Note that the left-sided effusion has diminished in size slightly. There may also be some mild localized scarring in the middle lobe and lingular regions. Diverticulosis with possible early localized area of early acute diverticulitis involving a short segment of the distal descending/sigmoid colon. Cholelithiasis. Atrophic changes right kidney unchanged.
[2018-05-21 17:01] LABS: FOLATE 9.8 ng/mL
[2018-05-21] MEDS: Simethicone 80 mg Chewtab PO SCH (17:21)
--- NOTE | 2018-05-21 17:38 | CP.PCM.PN ---
Subjective - Date & Time of Evaluation Date of Evaluation: 05/21/18 Time of Evaluation: 10:55 - Subjective Subjective: Patient seen an examined at bedside He states his shortness of breath has improved since yesterday but has a slight cough Afebrile with saturation at 95% on room air Denies CP, nausea, vomiting, fever Physical exam General: AAOx3 Cardio: no murmurs, RRR Pulmonary: bilateral mild wheezing Abdominal: soft, nondistended A/P Pleural effusion secondary to CKD rule out CHF -recommend echo -continue nebulizer -continue Breo Ellipta -chest xray 05/19/18: no active disease -chest ct 05/20/18: small bilateral pleural effusion, no pulmonary infiltrate, cardiomegaly with coronary arterial calcification, cholelithiasis without evide nce of cholecystitis, mild right renal atrophy, pancolonic diverticulosis without evidence of diverticulitis, severe multilevel degenerative disc disease with grade 1 retrolisthesis at L3-4 Objective - Vital Signs/Intake and Output Vital Signs (last 24 hours): Temp Pulse Resp BP Pulse Ox 97.5 F L 79 20 161/64 H 96 05/21/18 15:26 05/21/18 16:40 05/21/18 15:26 05/21/18 15:26 05/21/18 16:40 Intake and Output: 05/21/18 05/21/18 06:59 18:59 Intake Total 600 Output Total 800 Balance -200 - Medications Medications: Current Medications Acetaminophen (Tylenol 325mg Tab) 650 mg PO Q6 PRN PRN Reason: Pain, Mild (1-3) Albuterol/Ipratropium (Duoneb 3 Mg/0.5 Mg (3 Ml) Ud) 3 ml INH RQ6 [facility] Last Admin: 05/21/18 14:00 Dose: 3 ml Donepezil HCl (Aricept) 10 mg PO HS [facility] Last Admin: 05/20/18 21:34 Dose: 10 mg Fluticasone/Vilanterol (Breo Ellipta 100-25 Mcg Inh) 1 puff INH RQ12 [facility] Last Admin: 05/21/18 08:09 Dose: 1 puff Furosemide (Lasix) 20 mg IVP DAILY [facility] Last Admin: 05/21/18 10:01 Dose: 20 mg Heparin Sodium (Porcine) (Heparin) 5,000 units SC Q8 [facility] Last Admin: 05/21/18 13:09 Dose: 5,000 units Hydralazine HCl (Apresoline) 100 mg PO TID [facility] Last Admin: 05/21/18 13:08 Dose: 100 mg Piperacillin Sod/Tazobactam Sod (Zosyn 2.25 Gm Iv Premix) 2.25 gm in 50 mls @ 100 mls/hr IVPB Q8H [facility]; Protocol Last Admin: 05/21/18 17:22 Dose: 100 mls/hr Insulin Human Regular (Novolin R) 0 unit SC ACHS [facility]; Protocol Last Admin: 05/21/18 17:22 Dose: Not Given Memantine (Namenda) 5 mg PO BID [facility] Last Admin: 05/21/18 17:21 Dose: 5 mg Metoprolol Tartrate (Lopressor) 100 mg PO BID [facility] Last Admin: 05/21/18 17:22 Dose: 100 mg Pantoprazole Sodium (Protonix Inj) 40 mg IVP DAILY [facility] Last Admin: 05/21/18 10:00 Dose: 40 mg Simethicone (Mylicon Chew Tab) 80 mg PO BID [facility] Last Admin: 05/21/18 17:21 Dose: 80 mg Sodium Bicarbonate (Sodium Bicarbonate Tab) 650 mg PO BID [facility] Last Admin: 05/20/18 09:36 Dose: 650 mg Tamsulosin HCl (Flomax) 0.4 mg PO DAILY [facility] Last Admin: 05/21/18 11:07 Dose: 0.4 mg Vitamin B Complex/Vit C/Folic Acid (Nephro-Tin) 1 tab PO 0800 [facility] - Labs Labs: 05/21/18 07:12 05/21/18 07:12 PT 12.3 SECONDS (9.7-12.2) H 05/19/18 13:23 INR 1.1 05/19/18 13:23 APTT 34 SECONDS (21-34) 05/19/18 13:23
--- NOTE | 2018-05-21 18:50 | RAD ---
Date of service: 05/21/2018 HISTORY: pleural effusion COMPARISON: 05/19/2018. FINDINGS: LUNGS: No active pulmonary disease. PLEURA: No significant pleural effusion identified, no pneumothorax apparent. CARDIOVASCULAR: No atherosclerotic calcification present No radiographic findings to suggest acute or significant cardiovascular disease. OSSEOUS STRUCTURES: No significant abnormalities. VISUALIZED UPPER ABDOMEN: Normal. OTHER FINDINGS: None. IMPRESSION: No active disease. No significant interval change compared to the prior examination(s).
--- NOTE | 2018-05-21 23:53 | CON ---
DATE: 05/21/2018 CARDIOLOGY CONSULTATION REASON FOR CONSULTATION: Shortness of breath. HISTORY OF PRESENT ILLNESS: The patient is an 82-year-old male with history of hypertension, diabetes mellitus, chronic kidney disease, dementia and congestive heart failure who was brought in by his daughter for shortness of breath. At the time of my evaluation, the patient denies having chest pain. The patient was reported by his daughter to have been noncompliant with his medications. SOCIAL HISTORY: The patient is a nonsmoker, nondrinker. MEDICATIONS: Hydralazine 100 mg t.i.d., Aricept 10 mg once a day, albuterol inhaler every 6 hours, Flomax 0.4 mg once a day, subcutaneous heparin 5000 units every 8 hours, Lasix 20 mg intravenously daily, Lopressor 100 mg twice a day, Namenda 5 mg twice a day, Zosyn 2.25 g intravenously every 8 hours. REVIEW OF SYSTEMS: No fever or chills. No productive cough. No chest pain at the time of my evaluation. PHYSICAL EXAMINATION: GENERAL: The patient is an elderly male who does not appear to be in acute distress. VITAL SIGNS: Blood pressure 171/84, heart rate 76, temperature 97.4, respirations 18. HEENT: Normocephalic. CHEST: Bilateral basilar rhonchi. HEART: S1 and S2 are regular. ABDOMEN: Soft. EXTREMITIES: No edema. DIAGNOSTIC DATA: EKG revealed sinus bradycardia at rate of 59, possible left atrial enlargement, left axis deviation, LVH. Chest, abdomen, and pelvis CT scan without contrast: Small bilateral pleural effusion, no pulmonary infiltrate, cardiomegaly with chronic aortic regurgitation, cholelithiasis without evidence of cholecystitis, mild right renal atrophy, pancolonic diverticulosis without diverticulitis, severe multilevel degenerative disk disease at L3-L4. Chest x-ray revealed cardiomegaly. No infiltrate or lung masses. Venous Doppler of lower extremities was performed, but the report is still pending. LABORATORY DATA: Today's hemoglobin and hematocrit 10.8 and 32.5, white count 12.6, platelet count 146,000. Today's SMA-7: Sodium 132, potassium 4.5, chloride 98, CO2 of 25, glucose 111, BUN 63, creatinine 3.8. Echocardiographic study performed in 12/2017 revealed normal ejection fraction with normal diastolic filling pressures and [id number] pulmonary hypertension. ASSESSMENT: 1. Shortness of breath. Rule out underlying in view of underlying significant chronic renal insufficiency. 2. Hypertension. 3. Dementia. 4. Rule out underlying sepsis. The patient's white count today is 12.6. 5. Mild anemia. RECOMMENDATIONS: Continue hydralazine 100 mg t.i.d., Aricept 10 mg once a day, Flomax 0.4 mg once a day, subcutaneous heparin 5000 units every 8 hours, Lasix 20 mg intravenously daily, Lopressor 100 mg twice a day, Zosyn at 2.25 g every 8 hours. I will change the and obtain more medical history about the patient's past cardiac history from the patient's daughter when she is available. Ricci Rivera MD
[2018-05-22] MEDS: Piperacill/Tazo 2.25gm in Dex 2.25 GM/50 ML BAG IVPB SCH ×3 (01:10→17:37)
[2018-05-22] MEDS: Albuterol-Ipratrop 3 mg / 0.5 (3 ml) UD INH SCH ×3 (02:15→14:19)
[2018-05-22 06:48] LABS: BASO # 0.1 K/uL (0.0-0.2); BASO % 0.6 % (0.0-2.0); EOS # 1.4 K/uL (0.0-0.7); EOS % 14.8 % (0.0-4.0); HEMOGLOBIN 12.5 g/dL (12.0-18.0); LYMPH # 1.8 K/uL (1.0-4.3); LYMPH % 19.6 % (20.0-40.0); MEAN CORPUSCULAR HEMOGLOBIN 33.9 pg (27.0-31.0); MEAN CORPUSCULAR HGB CONC 33.9 g/dL (33.0-37.0); MEAN PLATELET VOLUME 10.3 fL (7.2-11.7); MONO # 0.7 K/uL (0.0-0.8); MONO % 7.4 % (0.0-10.0); NEUT # 5.4 K/uL (1.8-7.0); NEUT % 57.6 % (50.0-75.0); RBC 3.68 Mil/uL (4.40-5.90); RED CELL DISTRIBUTION WIDTH 14.6 % (11.5-14.5); WHITE BLOOD COUNT 9.4 K/uL (4.8-10.8)
[2018-05-22 07:04] LABS: ALB/GLOB RATIO 1.5 (1.0-2.1); ALBUMIN 4.1 g/dL (3.5-5.0); CALCIUM 8.1 mg/dl (8.6-10.4)
[2018-05-22] MEDS: Fluticasone-Vilanterol 100/25mcg Diskus INH SCH ×2 (07:23→20:20)
[2018-05-22] MEDS: (Novolin R) Insulin Human Regular 100 units/ml vial SC SCH ×4 (07:49→21:15)
--- NOTE | 2018-05-22 07:58 | CP.PCM.PN ---
<Danyel Rendon - Last Filed: 05/22/18 12:34> Subjective - Date & Time of Evaluation Date of Evaluation: 05/22/18 Time of Evaluation: 09:40 - Subjective Subjective: PGY1 medicine progress note for Dr. Back Pt was seen and examined at bedside. Pt has no complaints at this time. No acute events overnight. Pt denies fever, chills, chest pain, sob, abdominal pain, n/v/d, hematochezia, melena, lightheadedness, dizziness, urinary changes. Objective - Vital Signs/Intake and Output Vital Signs (last 24 hours): Temp Pulse Resp BP Pulse Ox 97.4 F L 66 18 170/80 H 100 05/22/18 07:00 05/22/18 07:00 05/22/18 07:00 05/22/18 07:00 05/22/18 07:00 Intake and Output: 05/22/18 05/22/18 06:59 18:59 Output Total 575 Balance -575 - Medications Medications: Current Medications Acetaminophen (Tylenol 325mg Tab) 650 mg PO Q6 PRN PRN Reason: Pain, Mild (1-3) Albuterol/Ipratropium (Duoneb 3 Mg/0.5 Mg (3 Ml) Ud) 3 ml INH RQ6 [facility] Last Admin: 05/22/18 07:23 Dose: 3 ml Donepezil HCl (Aricept) 10 mg PO HS [facility] Last Admin: 05/21/18 21:30 Dose: 10 mg Fluticasone/Vilanterol (Breo Ellipta 100-25 Mcg Inh) 1 puff INH RQ12 [facility] Last Admin: 05/22/18 07:23 Dose: 1 puff Furosemide (Lasix) 20 mg IVP DAILY [facility] Last Admin: 05/21/18 10:01 Dose: 20 mg Heparin Sodium (Porcine) (Heparin) 5,000 units SC Q8 [facility] Last Admin: 05/22/18 05:38 Dose: 5,000 units Hydralazine HCl (Apresoline) 100 mg PO TID [facility] Last Admin: 05/21/18 21:31 Dose: 100 mg Piperacillin Sod/Tazobactam Sod (Zosyn 2.25 Gm Iv Premix) 2.25 gm in 50 mls @ 100 mls/hr IVPB Q8H [facility]; Protocol Last Admin: 05/22/18 01:10 Dose: 100 mls/hr Insulin Human Regular (Novolin R) 0 unit SC ACHS [facility]; Protocol Last Admin: 05/22/18 07:49 Dose: Not Given Memantine (Namenda) 5 mg PO BID [facility] Last Admin: 05/21/18 17:21 Dose: 5 mg Metoprolol Tartrate (Lopressor) 100 mg PO BID [facility] Last Admin: 05/21/18 17:22 Dose: 100 mg Pantoprazole Sodium (Protonix Inj) 40 mg IVP DAILY [facility] Last Admin: 05/21/18 10:00 Dose: 40 mg Simethicone (Mylicon Chew Tab) 80 mg PO BID [facility] Last Admin: 05/21/18 17:21 Dose: 80 mg Sodium Bicarbonate (Sodium Bicarbonate Tab) 650 mg PO BID [facility] Last Admin: 05/20/18 09:36 Dose: 650 mg Tamsulosin HCl (Flomax) 0.4 mg PO DAILY [facility] Last Admin: 05/21/18 11:07 Dose: 0.4 mg Vitamin B Complex/Vit C/Folic Acid (Nephro-Tin) 1 tab PO 0800 [facility] - Labs Labs: 05/22/18 06:32 05/22/18 06:32 PT 12.3 SECONDS (9.7-12.2) H 05/19/18 13:23 INR 1.1 05/19/18 13:23 APTT 34 SECONDS (21-34) 05/19/18 13:23 - Additional Findings Additional findings: - Head Exam Head Exam: ATRAUMATIC, NORMAL INSPECTION - Eye Exam Eye Exam: EOMI, Normal appearance, PERRL. - ENT Exam ENT Exam: Mucous Membranes Moist, Normal Oropharynx - Respiratory Exam Respiratory Exam: Decreased Breath Sounds. absent: Wheezes, Respiratory Distress, NORMAL BREATHING PATTERN - Cardiovascular Exam Cardiovascular Exam: REGULAR RHYTHM, +S1, +S2. absent: JVD, RRR, Rubs, hepatojugular reflux - GI/Abdominal Exam GI & Abdominal Exam: Distended, Soft, nontender. absent: Hypoactive Bowel Sounds, Organomegaly, Pulsatile Mass, Tenderness - Extremities Exam Extremities exam: Positive for: pedal edema, 1+ pulses in distal lower extremities, 2+ pulses in bilateral upper extremities Additional comments: 1+ pitting edema to mid tibia - Neurological Exam Neurological exam: Alert, Oriented x3 - Psychiatric Exam Psychiatric exam: Normal Affect, Normal Mood - Skin Skin Exam: Dry, Intact, No pallor, good capillary refill Assessment and Plan - Assessment and Plan (Free Text) Assessment: 82 year old male with a past medical history of hypertension, dementia, ckd, being admitted for shortness of breath. Plan: Shortness of breath, resolved Possibly due to increased RVSP noted on prior echo -Chest xray: No active disease -CT abdomen, chest and pelvis w/o contrast showed small bilateral pleural effu luci. no pulmonary infiltrate. Cardiomegaly with coronary arterial calcification. Cholelithiasis without evidence of cholecystitis. Mild right renal atrophy. Pancolonic diverticulosis without evidence of diverticulitis. -Bipap PRN: only if patient begins to decompensate (02/28 60% O2) -pulmonology consulted, recommendations appreciated. -Cardiology, consulted. Recommendations appreciated. -Pro-BNP: down to 3860 today, from 6930 yesterday Medications: Breo Ellipata 100-25mcg 1 puff q12h Duoneb q6 prn Lasix 20 mg IVP switched to Lasix 20 mg PO daily -Last echo 01/01/18 does NOT indicated heart failure, but with increased right ventricular systolic pressure (50 mmHg). LVEF is 65%, normal diastolic filling pressures. -F/u lower extremity venous dopplers official read, prelim read shows no evidence of DVT -F/u echocardiogram reading Epigastric pain with diarrhea Early Diverticulitis on CT -Leukocytosis resolved (9.4), no bandemia, no tachycardia, pt afebrile Procalcitonin is <0.05 -Chest/Abd/pelv Ct without contrast reading above. -Abd/Pelv CT with PO contrast prelim read shows diverticulosis with possible aerly localized area of early acute diverticulitis involving a short segment of the distal descending/sigmoid colon. Mild hepatomegaly. Extensive a therosclerotic vascular plaques. Small right pleural effusion, trace left pleural effusion, DJD of L2-S1. -Continue renally dosed zosyn 2.25 mg IVPB q8 (05/21) Plan to discharge with Augmentin, pending no decompensation -Simethicone 80 mg PO BID -Blood culture x2 is prelim negative for 24 hours -stool is negative for ova and parasites -F/u stool culture Anemi, Macrocytic anemia -MCV is 100.5 -Folate normal -vitamin b12 low at 177 -Hgb/Hct is stable -FOBt is negative HTN urgency, resolved -BP-->196/85 on admission. -Given Clonidine .1mg and Lasix 40mg in the E.D. Medications: Continue home Hydralazine 100mg PO TID Continue metoprolol tartrate 100 mg PO BID as per nephro CKD stage 4 -Cr slightly increasing, today 4.1 -Will continue to monitor. -Nephrology Dr. Platt consulted. 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 Per Dr. Ball, Stat spot urine for ratio of protein to creatinine, PTH, Patient may not need sodium bicarbonate with CO2 of about 28 suggest to discontinue for now. -Renal US 06/2017 shows small atrophic rigth kidney with evidence of renal parenchymal disease. two simple cysts in the interpolar region of the right kidney, the large measures 10 mm. 10 mm simple cyst in the upper pole of the left kidney. No hydronephrosis or nephrolithiasis. - added nephrovite 1 tab daily, increased metoprolol tartrate to 100 mg PO BID Hx of Diabetes -Hgb A1C is 5.7 -Hold home medication Januvia 25mg PO Daily -ISS Low ACHS -Hypoglycemic protocol Hx of Low Vit D level -Vit D level normal -Pharmacy shows no prescription for home vitamin d Hx of Left Anterior Fasicular Block Criteria: Left axis deviation Small Q waves w/ tall R waves in leads I, and aVL Small R waves w/deep S waves in Leads II, III, aVF Prolonged R wave peak time in avl EKG unchanged when compared to June 2017 Hx of hypothyroidism -Continue home Levothyroxine 25 mcg daily -TSH, Free T4 are WNL Hx of Gout -Continue home allopurinol 100 mg po QD Hx of BPH -Continue home Tamsulosin 0.4 mg PO daily Hx of Dementia -Continue home Aricept 10 mg PO daily -Namenda decreased to 5 mg PO BID due to renal function PPX -Heparin SC 5000 Units q8 -Protonix 40 mg IVP daily -SCD's -HHD, 1.5L fluid restriction Family contact info: [facility]: Case discussed with Dr. Back <Maya Back V - Last Filed: 05/22/18 21:02> Objective - Vital Signs/Intake and Output Vital Signs (last 24 hours): Temp Pulse Resp BP Pulse Ox 97.8 F 86 18 163/84 H 98 05/22/18 15:00 05/22/18 18:15 05/22/18 18:15 05/22/18 18:15 05/22/18 18:15 Intake and Output: 05/22/18 05/23/18 18:59 06:59 Intake Total 720 Output Total 800 Balance -80 - Medications Medications: Current Medications Acetaminophen (Tylenol 325mg Tab) 650 mg PO Q6 PRN PRN Reason: Pain, Mild (1-3) Albuterol/Ipratropium (Duoneb 3 Mg/0.5 Mg (3 Ml) Ud) 3 ml INH RQ6 PRN PRN Reason: Shortness of Breath Donepezil HCl (Aricept) 10 mg PO HS [facility] Last Admin: 05/21/18 21:30 Dose: 10 mg Fluticasone/Vilanterol (Breo Ellipta 100-25 Mcg Inh) 1 puff INH RQ12 [facility] Last Admin: 05/22/18 20:20 Dose: 1 puff Heparin Sodium (Porcine) (Heparin) 5,000 units SC Q8 [facility] Last Admin: 05/22/18 13:29 Dose: 5,000 units Hydralazine HCl (Apresoline) 50 mg PO TID [facility] Last Admin: 05/22/18 17:35 Dose: 50 mg Piperacillin Sod/Tazobactam Sod (Zosyn 2.25 Gm Iv Premix) 2.25 gm in 50 mls @ 100 mls/hr IVPB Q8H [facility]; Protocol Last Admin: 05/22/18 17:37 Dose: 100 mls/hr Insulin Human Regular (Novolin R) 0 unit SC ACHS [facility]; Protocol Last Admin: 05/22/18 11:53 Dose: Not Given Isosorbide Mononitrate (Imdur Er) 30 mg PO DAILY [facility] Last Admin: 05/22/18 16:16 Dose: 30 mg Lactobacillus Acidophilus (Lactobacillus) 1 cap PO BID [facility] Memantine (Namenda) 5 mg PO BID [facility] Last Admin: 05/22/18 17:35 Dose: 5 mg Metoprolol Tartrate (Lopressor) 100 mg PO BID [facility] Last Admin: 05/22/18 17:35 Dose: 100 mg Pantoprazole Sodium (Protonix Inj) 40 mg IVP DAILY [facility] Last Admin: 05/22/18 10:25 Dose: 40 mg Simethicone (Mylicon Chew Tab) 80 mg PO BID [facility] Last Admin: 05/22/18 17:35 Dose: 80 mg Sodium Bicarbonate (Sodium Bicarbonate Tab) 650 mg PO BID [facility] Last Admin: 05/20/18 09:36 Dose: 650 mg Tamsulosin HCl (Flomax) 0.4 mg PO DAILY [facility] Last Admin: 05/22/18 10:24 Dose: 0.4 mg Vitamin B Complex/Vit C/Folic Acid (Nephro-Itn) 1 tab PO 0800 [facility] Last Admin: 05/22/18 09:00 Dose: 1 tab - Labs Labs: 05/22/18 06:32 05/22/18 06:32 PT 12.3 SECONDS (9.7-12.2) H 05/19/18 13:23 INR 1.1 05/19/18 13:23 APTT 34 SECONDS (21-34) 05/19/18 13:23 Attending/Attestation - Attestation I have personally seen and examined this patient.: Yes I have fully participated in the care of the patient.: Yes I have reviewed all pertinent clinical information, including history, physical exam and plan: Yes Notes (Text): Patient seen, examined, and case discussed with medical receptionist biller. Patient reports breathing is better. Patient reports he does not have diarrhea. Patient's noted edema over the lower extremity is remarkably reduced. Nephrology has held lasix given the increasing Creatine. Patient's white count improved to 9.0; afebrile. Blood cultures are negative for 24 hours and urine culture shows no growth. Blood pressure regiment adjusted by nephrology and cardiology. Patient to continue IV zosyn and convert to Augmentin PO. Assessment/Plan Shortness of breath Assessment/Plan * Pulmonary (Dr. Sanches) on case-->help appreciated * Chest xray: No active disease * CT abdomen, chest and pelvis w/o contrast (05/20/18) showed small bilateral pleural effusion. no pulmonary infiltrate. Cardiomegaly with coronary arterial calcification. Cholelithiasis without evidence of cholecystitis. Mild right renal atrophy. Pancolonic diverticulosis without evidence of diverticulitis. * CT Abdomen/pelvis PO contrast (05/21/18): small to medium size, right sided effusion, and tiny left sided effusion minor bibasilar atelectasis. Some mild localized scarring in the middle lobe and lingular regions. Diverticulosis with possible early localized area of early acute diverticulitis involving short segment of distal descending/sigmoid colon. Cholelithiasis. Atrophic changes right kidney unchanged. * monitor probnp * Medications: Breo Ellipta 100-25mcg 1 puff q12h Duoneb q6 for next 24 hours Epigastric pain with diarrhea Diverticulitis Assessment/Plan * CT Chest/Abdomen/Pelvis (05/20/18): small bilateral pleural effusion. No pulmonary infiltrate. Cardiomegaly with coronary arterial calcification. Cholelithiasis without evidence of cholecystitis. Mild renal renal atropgy. Pancolonic diverticulosis without evidence of diverticulitis. Severe multilevel degenerative disc disease with grade 1 retrolishtesis at L3-L4. * CT Abdomen/pelvis PO contrast (05/21/18): small to medium size, right sided effusion, and tiny left sided effusion minor bibasilar atelectasis. Some mild localized scarring in the middle lobe and lingular regions. Diverticulosis with possible early localized area of early acute diverticulitis involving short segment of distal descending/sigmoid colon. Cholelithiasis. Atrophic changes right kidney unchanged. * Patient started on Zosyn to empiric antibiotic treatment (05/21/18) * Ova and parasite concentration exam: none Leukocytosis Assessment/Plan * improving * Blood culture (05/21/18): no growth after 24hours X2 * Urine culture (05/21/18): no growth * Noted early diverticulitis on CT Abdomen/Pelvis PO * Zosyn 2.25gm IVPB Q8H (active since 05/21/18) * Procalcitonin is low HTN uncontrolled Assessment/Plan * lowered Hydralazine 50mg PO TID * increased Lopressor 100mg PO BID * add Imdur 30mg Po daily * held Lasix 20mg IV daily given increase Creatinine * Monitor blood pressure Chronic Kidney Disease, Stage 4 Assessment/Plan * Nephrology (Dr. Ball) on consult-->help appreciated * prior renal US from december 2017 * Sodium bicarbonate tabs on hold * monitor BUN/Cr * nephrovite 1 tab PO daily Hx of Diabetes Assessment/Plan * Hg A1C is 5.7 * Resume renal dose of Januvia 25mg PO daily * ISS Low ACHS * Hypoglycemic protocol Hx of Low Vit D level Assessment/Plan * Vit D level normal * Pharmacy shows no prescription for home vitamin d Hx of Left Anterior Fasicular Block Assessment/Plan Criteria: Left axis deviation Small Q waves w/ tall R waves in leads I, and aVL Small R waves w/deep S waves in Leads II, III, aVF Prolonged R wave peak time in avl EKG unchanged when compared to June 2017 Hx of hypothyroidism Assessment/Plan * Continue home Levothyroxine 25 mcg daily * TSH, Free T4 are WNL Macrocytic anemia Assessment/Plan * Folate normal * vitamin b12 low at 177 Hx of Gout Assessment/Plan * Continue home allopurinol 100 mg po QD Hx of BPH Assessment/Plan * Flomax 0.4mg PO daily Hx of Dementia Assessment/Plan * Continue home Aricept 10 mg PO daily, adjusted renal dose Memantine 5 mg PO BID * Per daughter at bedside, patient was diagnosed three years ago by PMD. Pulmonary Hypertension Elevated proBNP Assessment/Plan * Cardiology (Dr. Rivera) on consult-->help appreciated * Echocardiogram (07/17/17); mild concentric left ventricular hypertrophy. left ventricular function is normal. mild aortic regurgitation is present. mild tricupsid valve regurgitation noted. estimated pulmonary systolic pressure is 53mmHG * Echocardiogram (05/22/18): left atrium is mildly dilated. mild aortic regurgitation. mitral regurgitation is mild. mild tricuspid regurgitation. right ventricular pressure is estimated at 40mmHG. aortic root is normal in size. No pericardial effusion. left ventricule is normal size. Ejection Fraction: 60-65%. grade I-abnormal relaxation pattern * monitor probnp: downtrending * lasix on hold per nephrology given rise in creatinine Leg Edema Assessment/Plan * related to heart failure? fluid overload given kidney status? * check venous doppler lower extremity pending official report * improving Prophylactic measure * Heparin 5000 units sub8H * protonix 40mg IV q daily Disposition: plan for possible discharge tomorrow pending improvement in blood pressure and clinical status. patient changed to inpatient.
[2018-05-22] MEDS: Multivitamin Vitamin B Complex (Nephro-Vite) Tab PO SCH (09:00)
[2018-05-22] MEDS: Simethicone 80 mg Chewtab PO SCH ×2 (10:24→17:35)
--- NOTE | 2018-05-22 13:37 | CP.PCM.PN ---
Subjective - Date & Time of Evaluation Date of Evaluation: 05/22/18 Time of Evaluation: 11:00 - Subjective Subjective: Patient seen an examined at bedside He states he is feeling better this morning Echo was performed this am Afebrile with saturation at 95% on room air Denies CP, nausea, vomiting, fever Physical exam General: AAOx3 Cardio: no murmurs, RRR Pulmonary: wheezing in left lower lobe Abdominal: soft, nondistended A/P Pleural effusion secondary to CKD rule out CHF -follow up echo results -continue nebulizer -continue Breo Ellipta -chest xray 05/19/18: no active disease -chest ct 05/20/18: small bilateral pleural effusion, no pulmonary infiltrate, cardiomegaly with coronary arterial calcification, cholelithiasis without evid ence of cholecystitis, mild right renal atrophy, pancolonic diverticulosis without evidence of diverticulitis, severe multilevel degenerative disc disease with grade 1 retrolisthesis at L3-4 Objective - Vital Signs/Intake and Output Vital Signs (last 24 hours): Temp Pulse Resp BP Pulse Ox 97.4 F L 66 18 177/88 H 100 05/22/18 07:00 05/22/18 07:00 05/22/18 07:00 05/22/18 13:30 05/22/18 08:00 Intake and Output: 05/22/18 05/22/18 06:59 18:59 Output Total 575 Balance -575 - Medications Medications: Current Medications Acetaminophen (Tylenol 325mg Tab) 650 mg PO Q6 PRN PRN Reason: Pain, Mild (1-3) Albuterol/Ipratropium (Duoneb 3 Mg/0.5 Mg (3 Ml) Ud) 3 ml INH RQ6 [facility] Last Admin: 05/22/18 07:23 Dose: 3 ml Donepezil HCl (Aricept) 10 mg PO HS [facility] Last Admin: 05/21/18 21:30 Dose: 10 mg Fluticasone/Vilanterol (Breo Ellipta 100-25 Mcg Inh) 1 puff INH RQ12 [facility] Last Admin: 05/22/18 07:23 Dose: 1 puff Furosemide (Lasix) 20 mg PO DAILY [facility] Heparin Sodium (Porcine) (Heparin) 5,000 units SC Q8 [facility] Last Admin: 05/22/18 13:29 Dose: 5,000 units Hydralazine HCl (Apresoline) 100 mg PO TID [facility] Last Admin: 05/22/18 13:29 Dose: 100 mg Piperacillin Sod/Tazobactam Sod (Zosyn 2.25 Gm Iv Premix) 2.25 gm in 50 mls @ 100 mls/hr IVPB Q8H [facility]; Protocol Last Admin: 05/22/18 10:32 Dose: 100 mls/hr Insulin Human Regular (Novolin R) 0 unit SC ACHS [facility]; Protocol Last Admin: 05/22/18 11:53 Dose: Not Given Memantine (Namenda) 5 mg PO BID [facility] Last Admin: 05/22/18 10:24 Dose: 5 mg Metoprolol Tartrate (Lopressor) 100 mg PO BID [facility] Last Admin: 05/22/18 10:24 Dose: 100 mg Pantoprazole Sodium (Protonix Inj) 40 mg IVP DAILY [facility] Last Admin: 05/22/18 10:25 Dose: 40 mg Simethicone (Mylicon Chew Tab) 80 mg PO BID [facility] Last Admin: 05/22/18 10:24 Dose: 80 mg Sodium Bicarbonate (Sodium Bicarbonate Tab) 650 mg PO BID [facility] Last Admin: 05/20/18 09:36 Dose: 650 mg Tamsulosin HCl (Flomax) 0.4 mg PO DAILY [facility] Last Admin: 05/22/18 10:24 Dose: 0.4 mg Vitamin B Complex/Vit C/Folic Acid (Nephro-Tin) 1 tab PO 0800 [facility] Last Admin: 05/22/18 09:00 Dose: 1 tab - Labs Labs: 05/22/18 06:32 05/22/18 06:32 PT 12.3 SECONDS (9.7-12.2) H 05/19/18 13:23 INR 1.1 05/19/18 13:23 APTT 34 SECONDS (21-34) 05/19/18 13:23
--- NOTE | 2018-05-22 14:13 | CARD ---
APPROVED REPORT Date of service: 05/22/2018 EXAM: Two-dimensional and M-mode echocardiogram with Doppler and color Doppler. INDICATION Dyspnea Chest Pain Syncope CHECK EF RISK FACTORS Hypertension Diabetes 2D DIMENSIONS IVSd1.2 (0.7-1.1cm)LVDd5.0 (3.9-5.9cm) PWd1.0 (0.7-1.1cm)LA Kzyfwb05 (18-58mL) LVDs3.2 (2.5-4.0cm)FS (%) 36.5 % LVEF (%)66.0 (>50%)LVEF (Miranda's)60.53 % M-Mode DIMENSIONS Left Atrium (MM)4.01 (2.5-4.0cm)IVSd1.02 (0.7-1.1cm) Aortic Root3.75 (2.2-3.7cm)LVDd6.17 (4.0-5.6cm) Aortic Cusp Exc.2.16 (1.5-2.0cm)PWd1.02 (0.7-1.1cm) FS (%) 34 %LVDs4.06 (2.0-3.8cm) LVEF (%)62 (>50%) Aortic Valve AI P 1/2 [id number] Mitral Valve MV E Psiokxbb68.9cm/sMV A Godichuz61.2cm/sE/A ratio0.5 TDI Lateral E' Peak V6.51cm/sMedial E' Peak V3.13cm/sE/Lateral E'8.1 E/Medial E'16.9 Tricuspid Valve TR Peak Goszuzoo760fm/sTR Peak Gr.[id number] LEFT VENTRICLE The left ventricle is normal size. There is normal left ventricular wall thickness. The Ejection Fraction is 60-65%. There is normal LV segmental wall motion. Transmitral Doppler flow pattern is Grade I-abnormal relaxation pattern. RIGHT VENTRICLE The right ventricle is normal size. The right ventricular systolic function is normal. ATRIA The left atrium is mildly dilated. The right atrium size is normal. The interatrial septum is intact with no evidence for an atrial septal defect. AORTIC VALVE The aortic valve is mildly sclerotic. The aortic valve is trileaflet. There is mild aortic regurgitation. MITRAL VALVE The mitral valve is normal in structure. Mitral regurgitation is mild. TRICUSPID VALVE The tricuspid valve is normal in structure. There is mild tricuspid regurgitation. Right ventricular systolic pressure is estimated at 40 mmHg. There is mild pulmonary hypertension. PULMONIC VALVE The pulmonary valve is normal in structure. There is mild pulmonic valvular regurgitation. GREAT VESSELS The aortic root is normal in size. The IVC is normal in size and collapses >50% with inspiration. PERICARDIAL EFFUSION There is no pericardial effusion. <Conclusion> The left atrium is mildly dilated. There is mild aortic regurgitation. Mitral regurgitation is mild. There is mild tricuspid regurgitation. Right ventricular systolic pressure is estimated at 40 mmHg. There is mild pulmonary hypertension. The aortic root is normal in size. There is no pericardial effusion. The left ventricle is normal size. The Ejection Fraction is 60-65%. Transmitral Doppler flow pattern is Grade I-abnormal relaxation pattern.
--- NOTE | 2018-05-22 16:24 | CP.PCM.PN ---
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 Hypertension control with meds as ordered. Patient not on ACEI/ARB as due to advanced CKD and CHESTER. increase lopressor 100 bid. added imdur 30 mg/d continue with flomax 0.4 mg/day pt on lasix, will hold for a day due to rising cr added nephrovite [address] abdomen reviewed, has known Rt renal atrophy. Dose meds/antibiotics for reduced GFR. Avoid fleets enema/magnesium based laxatives. Avoid nephrotoxins/NSAIDs/ iodinated contrast (unless needed emergently) Glycemic control Further work up/management as per primary team Thanks for allowing me to participate in care of your patient. Will follow patient with you. Please call if any Qs. had d/w team Dr Yuan Platt Office: [phone] ROS: Cardiovascular: No chest pain. Pulmonary: No shortness of breath Gastrointestinal: denies abdominal pain No nausea. No vomiting. Genitourinary: No pain while urinating. Denies blood in urine. pt with dementia, ROS overall limited Rest all other negative except as mentioned in HPI Physical Examination: General Appearance: Comfortable, in no acute respiratory distress, co-operative . Vitals reviewed and noted as below Head; Atraumatic, normocephalic ENT: no ulcers no thrush. Tongue is midline. Oropharynx: no rash or ulcers. EYES: Pupils are equal, round and reactive to light accommodation. Eye muscles and extraocular movement intact. Sclera is anicteric. Neck; supple no lymphadenopathy, no thyromegaly or bruit Lungs: Normal respiratory rate/effort. Breath sounds bilateral equal. clearer Heart: Normal rate. s1s2 normal. No rub or gallop. Extremities: no edema. No varicose veins Neurological: Patient is alert, awake and demented. No focal deficit. Strength bilateral appropriate and equal Skin: Warm and dry. Normal turgor. No rash. Palpitation: Normal elasticity for age Abdomen: Abdomen is soft. Bowel sounds +. There is no abdominal tenderness, no guarding/rigidity or organomegaly Psych: lack insight and has normal affect/mood MSK: no joint tenderness or swelling. Digits and nails normal, no deformity : kidney or bladder not palpable Labs/imaging reviewed. Past medical history, past surgical history, family history, social history, allergy reviewed and noted as below Family Hx: no hx of CKD. Non contributory vit D 45 Phos 4.1 Objective - Vital Signs/Intake and Output Vital Signs (last 24 hours): Temp Pulse Resp BP Pulse Ox 97.4 F L 66 18 177/88 H 100 05/22/18 07:00 05/22/18 08:14 05/22/18 07:00 05/22/18 13:30 05/22/18 16:10 Intake and Output: 05/22/18 05/22/18 06:59 18:59 Intake Total 720 Output Total 575 800 Balance -575 -80 - Medications Medications: Current Medications Acetaminophen (Tylenol 325mg Tab) 650 mg PO Q6 PRN PRN Reason: Pain, Mild (1-3) Albuterol/Ipratropium (Duoneb 3 Mg/0.5 Mg (3 Ml) Ud) 3 ml INH RQ6 [facility] Last Admin: 05/22/18 14:19 Dose: 3 ml Donepezil HCl (Aricept) 10 mg PO HS [facility] Last Admin: 05/21/18 21:30 Dose: 10 mg Fluticasone/Vilanterol (Breo Ellipta 100-25 Mcg Inh) 1 puff INH RQ12 [facility] Last Admin: 05/22/18 07:23 Dose: 1 puff Furosemide (Lasix) 20 mg PO DAILY [facility] Heparin Sodium (Porcine) (Heparin) 5,000 units SC Q8 [facility] Last Admin: 05/22/18 13:29 Dose: 5,000 units Hydralazine HCl (Apresoline) 100 mg PO TID [facility] Last Admin: 05/22/18 13:29 Dose: 100 mg Piperacillin Sod/Tazobactam Sod (Zosyn 2.25 Gm Iv Premix) 2.25 gm in 50 mls @ 100 mls/hr IVPB Q8H [facility]; Protocol Last Admin: 05/22/18 10:32 Dose: 100 mls/hr Insulin Human Regular (Novolin R) 0 unit SC ACHS [facility]; Protocol Last Admin: 05/22/18 11:53 Dose: Not Given Isosorbide Mononitrate (Imdur Er) 30 mg PO DAILY [facility] Last Admin: 05/22/18 16:16 Dose: 30 mg Memantine (Namenda) 5 mg PO BID [facility] Last Admin: 05/22/18 10:24 Dose: 5 mg Metoprolol Tartrate (Lopressor) 100 mg PO BID [facility] Last Admin: 05/22/18 10:24 Dose: 100 mg Pantoprazole Sodium (Protonix Inj) 40 mg IVP DAILY [facility] Last Admin: 05/22/18 10:25 Dose: 40 mg Simethicone (Mylicon Chew Tab) 80 mg PO BID [facility] Last Admin: 05/22/18 10:24 Dose: 80 mg Sodium Bicarbonate (Sodium Bicarbonate Tab) 650 mg PO BID [facility] Last Admin: 05/20/18 09:36 Dose: 650 mg Tamsulosin HCl (Flomax) 0.4 mg PO DAILY [facility] Last Admin: 05/22/18 10:24 Dose: 0.4 mg Vitamin B Complex/Vit C/Folic Acid (Nephro-Tin) 1 tab PO 0800 [facility] Last Admin: 05/22/18 09:00 Dose: 1 tab - Labs Labs: 05/22/18 06:32 05/22/18 06:32 PT 12.3 SECONDS (9.7-12.2) H 05/19/18 13:23 INR 1.1 05/19/18 13:23 APTT 34 SECONDS (21-34) 05/19/18 13:23
[2018-05-22] MEDS ORDERED: Albuterol-Ipratrop 3 mg / 0.5 (3 ml) UD INH PRN (20:10)
--- NOTE | 2018-05-22 21:04 | PN ---
DATE: 05/22/2018 SUBJECTIVE: The patient denies any shortness of breath or chest pain. PHYSICAL EXAMINATION: VITAL SIGNS: Blood pressure 175/84, heart rate 71, temperature 97.8, respirations 20. HEENT: Normocephalic. CHEST: Clear. HEART: S1, S2. Regular. EXTREMITIES: Trace leg edema. LABORATORY DATA: Today's SMA-7: Sodium 136, potassium 3.8, chloride 95, CO2 of 28, glucose 98, BUN 61, creatinine 4.1 with worsening of BUN and creatinine compared to admission. Today's hemoglobin and hematocrit 12.5 and 36.7. White count and platelet count are within normal limits. Venous Doppler of lower extremities was performed. The report is still pending. Report of chest x-ray, no active disease. Echocardiographic study reveals a normal ejection fraction. RV systolic pressure estimated at 40 mmHg and grade 1 abnormal relaxation pattern. ASSESSMENT: 1. Shortness of breath on admission. 2. Worsening renal insufficiency. 3. Hypertension. 4. Mild anemia. 5. Mild pulmonary hypertension. RECOMMENDATIONS: Continue subcutaneous heparin 5000 units every 8 hours. Continue Imdur 30 mg daily. Continue Lopressor 100 mg twice a day and continue Zosyn 2.25 g intravenously every 8 hours. Discontinue Lasix and use hydralazine 250 mg t.i.d. Obtain 24-hour urinary creatinine for calculation of creatinine clearance. Ricci Rivera MD
[2018-05-22] MEDS: Lactobacillus Acidophilus 500 MU Cap PO SCH (21:14)
[2018-05-23] MEDS: Piperacill/Tazo 2.25gm in Dex 2.25 GM/50 ML BAG IVPB SCH ×2 (01:33→09:10)
[2018-05-23 01:36] VITALS: RESP 20
--- NOTE | 2018-05-23 07:08 | CP.PCM.PN ---
Subjective - Date & Time of Evaluation Date of Evaluation: 05/23/18 Time of Evaluation: 09:25 - Subjective Subjective: PGY1 medicine progress note for Dr. Back Pt was seen and examined at bedside. Pt has no complaints at this time. Pt with some nausea overnight, but denies emesis and reports it went away on its own. Denies any more episodes of diarrhea, would like to go home. Pt denies fever, chills, chest pain, sob, abdominal pain, n/v/d, hematochezia, melena, lightheadedness, dizziness, urinary changes. Objective - Vital Signs/Intake and Output Vital Signs (last 24 hours): Temp Pulse Resp BP Pulse Ox 97.6 F 58 L 20 141/74 96 05/22/18 23:40 05/23/18 05:45 05/23/18 05:45 05/23/18 05:45 05/23/18 05:45 Intake and Output: 05/23/18 05/23/18 06:59 18:59 Intake Total 50 Output Total 800 Balance -750 - Medications Medications: Current Medications Acetaminophen (Tylenol 325mg Tab) 650 mg PO Q6 PRN PRN Reason: Pain, Mild (1-3) Albuterol/Ipratropium (Duoneb 3 Mg/0.5 Mg (3 Ml) Ud) 3 ml INH RQ6 PRN PRN Reason: Shortness of Breath Donepezil HCl (Aricept) 10 mg PO HS [facility] Last Admin: 05/22/18 21:14 Dose: 10 mg Fluticasone/Vilanterol (Breo Ellipta 100-25 Mcg Inh) 1 puff INH RQ12 [facility] Last Admin: 05/22/18 20:20 Dose: 1 puff Heparin Sodium (Porcine) (Heparin) 5,000 units SC Q8 [facility] Last Admin: 05/23/18 05:49 Dose: 5,000 units Hydralazine HCl (Apresoline) 50 mg PO TID [facility] Last Admin: 05/22/18 17:35 Dose: 50 mg Piperacillin Sod/Tazobactam Sod (Zosyn 2.25 Gm Iv Premix) 2.25 gm in 50 mls @ 100 mls/hr IVPB Q8H [facility]; Protocol Last Admin: 05/23/18 01:33 Dose: 100 mls/hr Insulin Human Regular (Novolin R) 0 unit SC [facility]; Protocol Last Admin: 05/22/18 21:15 Dose: Not Given Isosorbide Mononitrate (Imdur Er) 30 mg PO DAILY [facility] Last Admin: 05/22/18 16:16 Dose: 30 mg Lactobacillus Acidophilus (Lactobacillus) 1 cap PO BID [facility] Last Admin: 05/22/18 21:14 Dose: 1 cap Memantine (Namenda) 5 mg PO BID [facility] Last Admin: 05/22/18 17:35 Dose: 5 mg Metoprolol Tartrate (Lopressor) 100 mg PO BID [facility] Last Admin: 05/22/18 17:35 Dose: 100 mg Pantoprazole Sodium (Protonix Inj) 40 mg IVP DAILY [facility] Last Admin: 05/22/18 10:25 Dose: 40 mg Simethicone (Mylicon Chew Tab) 80 mg PO BID [facility] Last Admin: 05/22/18 17:35 Dose: 80 mg Sitagliptin Phosphate (Januvia) 25 mg PO DAILY [facility] Sodium Bicarbonate (Sodium Bicarbonate Tab) 650 mg PO BID [facility] Last Admin: 05/20/18 09:36 Dose: 650 mg Tamsulosin HCl (Flomax) 0.4 mg PO DAILY [facility] Last Admin: 05/22/18 10:24 Dose: 0.4 mg Vitamin B Complex/Vit C/Folic Acid (Nephro-Tin) 1 tab PO 0800 [facility] Last Admin: 05/22/18 09:00 Dose: 1 tab - Labs Labs: 05/22/18 06:32 05/22/18 06:32 PT 12.3 SECONDS (9.7-12.2) H 05/19/18 13:23 INR 1.1 05/19/18 13:23 APTT 34 SECONDS (21-34) 05/19/18 13:23 - Additional Findings Additional findings: - Head Exam Head Exam: ATRAUMATIC, NORMAL INSPECTION - Eye Exam Eye Exam: EOMI, Normal appearance, PERRL. - ENT Exam ENT Exam: Mucous Membranes Dry, Normal Oropharynx - Respiratory Exam Respiratory Exam: Decreased Breath Sounds. absent: Wheezes, Respiratory Distress, NORMAL BREATHING PATTERN - Cardiovascular Exam Cardiovascular Exam: REGULAR RHYTHM, +S1, +S2. absent: JVD, RRR, Rubs, hepatojugular reflux - GI/Abdominal Exam GI & Abdominal Exam: Distended, Soft, nontender. absent: Hypoactive Bowel Sounds, Organomegaly, Pulsatile Mass, Tenderness - Extremities Exam Extremities exam: 1+ pulses in distal lower extremities, 2+ pulses in bilateral upper extremities, no edema, no tenderness, no calf tenderness - Neurological Exam Neurological exam: Alert, Oriented x3 - Psychiatric Exam Psychiatric exam: Normal Affect, Normal Mood - Skin Skin Exam: Dry, Intact, No pallor, good capillary refill Assessment and Plan - Assessment and Plan (Free Text) Assessment: 82 year old male with a past medical history of hypertension, dementia, ckd, being admitted for shortness of breath. Plan: Shortness of breath, resolved Possibly due to increased RVSP noted on prior echo -Chest xray: No active disease -CT abdomen, chest and pelvis w/o contrast showed small bilateral pleural eff usion. no pulmonary infiltrate. Cardiomegaly with coronary arterial calcification. Cholelithiasis without evidence of cholecystitis. Mild right renal atrophy. Pancolonic diverticulosis without evidence of diverticulitis. -Bipap PRN: only if patient begins to decompensate (02/28 60% O2) -pulmonology consulted, recommendations appreciated. -Cardiology, consulted. Recommendations appreciated. -Pro-BNP: down to 1800 today, from 3860 yesterday Medications: Breo Ellipata 100-25mcg 1 puff q12h Duoneb q6 prn Lasix 20 mg PO daily to restart tomorrow 05/24 -Last echo 01/01/18 does NOT indicated heart failure, but with increased right ventricular systolic pressure (50 mmHg). LVEF is 65%, normal diastolic filling pressures. -Echocardiogram (05/22) shows LA is mildly dilated. Mild R, MR, TR. RVSP is approximately 40 mmHg. Mild Pulmonaryhypertension. LVEF is 60-65%. Grade I abnormal relaxation pattern. -F/u lower extremity venous dopplers official read, prelim read shows no evidence of DVT Epigastric pain with diarrhea, resolved Early Diverticulitis on CT -Leukocytosis resolved (9.4), no bandemia, no tachycardia, pt afebrile Procalcitonin is <0.05 -Chest/Abd/pelv Ct without contrast reading above. -Abd/Pelv CT with PO contrast prelim read shows diverticulosis with possible aerly localized area of early acute diverticulitis involving a short segment of the distal descending/sigmoid colon. Mild hepatomegaly. Extensive atherosclerotic vascular plaques. Small right pleural effusion, trace left pleural effusion, DJD of L2-S1. -Continue renally dosed zosyn 2.25 mg IVPB q8 (05/21) Zosyn discontinued today, will start renally dosed Augmentin 500 mg PO BID x 7d Plan to discharge with Augmentin, pending no decompensation -Simethicone 80 mg PO BID -Blood culture x2 is prelim negative for 24 hours -stool is negative for ova and parasites, stool culture is negative -Zofran ODT 4 mg PO PRN n/v Anemia, Macrocytic anemia -MCV is 100.5 -Folate normal -vitamin b12 low at 177 -Hgb/Hct is stable -FOBt is negative HTN urgency, resolved -BP-->196/85 on admission. -Given Clonidine .1mg and Lasix 40mg in the E.D. Medications: Continue home Hydralazine 100mg PO TID Continue metoprolol tartrate 100 mg PO BID Imdur 30 mg PO daily increased to Imdur 60 mg PO daily CKD stage 4 -Cr downtrending today -Will continue to monitor. -Nephrology Dr. Platt consulted. This is pt's prepleater. Per Dr. Ball, Stat spot urine for ratio of protein to creatinine, PTH, Patient may not need sodium bicarbonate with CO2 of about 28 suggest to discontinue for now. -Renal US 06/2017 shows small atrophic rigth kidney with evidence of renal parenchymal disease. two simple cysts in the interpolar region of the right kidney, the large measures 10 mm. 10 mm simple cyst in the upper pole of the left kidney. No hydronephrosis or nephrolithiasis. - added nephrovite 1 tab daily, increased metoprolol tartrate to 100 mg PO BID. Hold lasix until 05/24 Hx of Diabetes -Hgb A1C is 5.7 -Hold home medication Januvia 25mg PO Daily -ISS Low ACHS -Hypoglycemic protocol Hx of Low Vit D level -Vit D level normal -Pharmacy shows no prescription for home vitamin d Hx of Left Anterior Fasicular Block Criteria: Left axis deviation Small Q waves w/ tall R waves in leads I, and aVL Small R waves w/deep S waves in Leads II, III, aVF Prolonged R wave peak time in avl EKG unchanged when compared to June 2017 Hx of hypothyroidism -Continue home Levothyroxine 25 mcg daily -TSH, Free T4 are WNL Hx of Gout -Continue home allopurinol 100 mg po QD Hx of BPH -Continue home Tamsulosin 0.4 mg PO daily Hx of Dementia -Continue home Aricept 10 mg PO daily -Namenda decreased to 5 mg PO BID due to renal function PPX -Heparin SC 5000 Units q8 -Protonix 40 mg IVP daily -SCD's -HHD, 1.5L fluid restriction Family contact info: Deedee Hutchinson: Dispo: potential discharge tomorrow pending no clinical decompensation. Continue renally dosed Augmentin 500 mg PO BID for 7 days total (with lactobacillus). Pt needs to follow up with cardiology, PMD, nephrology within 2 weeks of discharge.
[2018-05-23 07:30] LABS: BASO # 0.1 K/uL (0.0-0.2); BASO % 0.6 % (0.0-2.0); EOS # 2.8 K/uL (0.0-0.7); EOS % 25.6 % (0.0-4.0); HEMOGLOBIN 12.8 g/dL (12.0-18.0); LYMPH # 1.5 K/uL (1.0-4.3); MEAN CELL VOLUME 99.9 fL (80.0-94.0); MEAN CORPUSCULAR HEMOGLOBIN 33.6 pg (27.0-31.0); MEAN CORPUSCULAR HGB CONC 33.6 g/dL (33.0-37.0); MEAN PLATELET VOLUME 9.8 fL (7.2-11.7); MONO # 0.9 K/uL (0.0-0.8); NEUT # 5.7 K/uL (1.8-7.0); NEUT % 51.8 % (50.0-75.0); PLATELET COUNT 169 K/uL (130-400); RBC 3.81 Mil/uL (4.40-5.90); RED CELL DISTRIBUTION WIDTH 14.8 % (11.5-14.5)
[2018-05-23 07:38] LABS: ALB/GLOB RATIO 1.4 (1.0-2.1); ALBUMIN 4.1 g/dL (3.5-5.0); CALCIUM 8.7 mg/dl (8.6-10.4)
[2018-05-23] MEDS: Multivitamin Vitamin B Complex (Nephro-Vite) Tab PO SCH (07:39)
[2018-05-23] MEDS: (Novolin R) Insulin Human Regular 100 units/ml vial SC SCH ×4 (07:39→21:10)
[2018-05-23 08:42] LABS: ANISOCYTOSIS SLIGHT; BASOPHIL 2 % (0-2); EOSINOPHIL 26 % (0-4); LYMPHOCYTE 15 % (20-40); MONOCYTE 6 % (0-10); NEUTROPHIL 51 % (50-75); PLATELET ESTIMATE NORMAL (NORMAL); POIKILOCYTOSIS SLIGHT; TOTAL CELLS COUNTED 100
[2018-05-23 08:43] LABS: HYPOCHROMIC SLIGHT
[2018-05-23] MEDS: Simethicone 80 mg Chewtab PO SCH ×2 (09:12→17:43)
[2018-05-23] MEDS: Lactobacillus Acidophilus 500 MU Cap PO SCH ×2 (09:12→17:43)
[2018-05-23] MEDS: Fluticasone-Vilanterol 100/25mcg Diskus INH SCH (10:38)
[2018-05-23] MEDS: Amoxicillin-Clav 500-125 mg Tab PO SCH ×2 (12:26→22:53)
--- NOTE | 2018-05-23 13:12 | CP.PCM.PN ---
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 Hypertension control with meds as ordered. Patient not on ACEI/ARB as due to advanced CKD and [place]. increase lopressor 100 bid. Increased imdur 60 mg/d continue with flomax 0.4 mg/day pt on lasix, will hold for a day due to rising cr added nephrovite [address] abdomen reviewed, has known Rt renal atrophy. added b12 supplements as well Dose meds/antibiotics for reduced GFR. Avoid fleets enema/magnesium based laxatives. Avoid nephrotoxins/NSAIDs/ iodinated contrast (unless needed emergently) Glycemic control Further work up/management as per primary team Thanks for allowing me to participate in care of your patient. Will follow patient with you. Please call if any Qs. had d/w team Dr Yuan Platt Office: [phone] ROS: Cardiovascular: No chest pain. Pulmonary: No shortness of breath Gastrointestinal: denies abdominal pain No nausea. No vomiting. Genitourinary: No pain while urinating. Denies blood in urine. pt with dementia, ROS overall limited Rest all other negative except as mentioned in HPI Physical Examination: General Appearance: Comfortable, in no acute respiratory distress, co-operative . Vitals reviewed and noted as below Head; Atraumatic, normocephalic ENT: no ulcers no thrush. Tongue is midline. Oropharynx: no rash or ulcers. EYES: Pupils are equal, round and reactive to light accommodation. Eye muscles and extraocular movement intact. Sclera is anicteric. Neck; supple no lymphadenopathy, no thyromegaly or bruit Lungs: Normal respiratory rate/effort. Breath sounds bilateral equal. clear Heart: Normal rate. s1s2 normal. No rub or gallop. Extremities: no edema. No varicose veins Neurological: Patient is alert, awake and demented. No focal deficit. Strength bilateral appropriate and equal Skin: Warm and dry. Normal turgor. No rash. Palpitation: Normal elasticity for age Abdomen: Abdomen is soft. Bowel sounds +. There is no abdominal tenderness, no guarding/rigidity or organomegaly Psych: lack insight and has normal affect/mood MSK: no joint tenderness or swelling. Digits and nails normal, no deformity : kidney or bladder not palpable Labs/imaging reviewed. Past medical history, past surgical history, family history, social history, allergy reviewed and noted as below Family Hx: no hx of CKD. Non contributory vit D 45 Phos 4.1 Objective - Vital Signs/Intake and Output Vital Signs (last 24 hours): Temp Pulse Resp BP Pulse Ox 97.6 F 65 20 133/70 96 05/22/18 23:40 05/23/18 09:21 05/23/18 05:45 05/23/18 12:28 05/23/18 05:45 Intake and Output: 05/23/18 05/23/18 06:59 18:59 Intake Total 50 Output Total 800 Balance -750 - Medications Medications: Current Medications Acetaminophen (Tylenol 325mg Tab) 650 mg PO Q6 PRN PRN Reason: Pain, Mild (1-3) Albuterol/Ipratropium (Duoneb 3 Mg/0.5 Mg (3 Ml) Ud) 3 ml INH RQ6 PRN PRN Reason: Shortness of Breath Amoxicillin/Clavulanate Potassium (Augmentin 500 Mg-125 Mg Tab) 1 tab PO Q12H [facility]; Protocol Last Admin: 05/23/18 12:26 Dose: 1 tab Cyanocobalamin (Vitamin B12 1000 Mcg Tab) 1,000 mcg PO DAILY [facility] Last Admin: 05/23/18 11:45 Dose: 1,000 mcg Donepezil HCl (Aricept) 10 mg PO HS [facility] Last Admin: 05/22/18 21:14 Dose: 10 mg Fluticasone/Vilanterol (Breo Ellipta 100-25 Mcg Inh) 1 puff INH RQ12 [facility] Last Admin: 05/23/18 10:38 Dose: 1 puff Heparin Sodium (Porcine) (Heparin) 5,000 units SC Q8 [facility] Last Admin: 05/23/18 05:49 Dose: 5,000 units Hydralazine HCl (Apresoline) 50 mg PO TID [facility] Last Admin: 05/23/18 09:12 Dose: 50 mg Insulin Human Regular (Novolin R) 0 unit SC ACHS [facility]; Protocol Last Admin: 05/23/18 07:39 Dose: Not Given Isosorbide Mononitrate (Imdur) 60 mg PO DAILY [facility] Lactobacillus Acidophilus (Lactobacillus) 1 cap PO BID [facility] Last Admin: 05/23/18 09:12 Dose: 1 cap Memantine (Namenda) 5 mg PO BID [facility] Last Admin: 05/23/18 09:12 Dose: 5 mg Metoprolol Tartrate (Lopressor) 100 mg PO BID [facility] Last Admin: 05/23/18 09:12 Dose: 100 mg Ondansetron HCl (Zofran Odt) 4 mg PO Q8H PRN PRN Reason: Nausea/Vomiting Pantoprazole Sodium (Protonix Inj) 40 mg IVP DAILY [facility] Last Admin: 05/23/18 09:13 Dose: 40 mg Simethicone (Mylicon Chew Tab) 80 mg PO BID [facility] Last Admin: 05/23/18 09:12 Dose: 80 mg Sitagliptin Phosphate (Januvia) 25 mg PO DAILY [facility] Last Admin: 05/23/18 09:14 Dose: 25 mg Sodium Bicarbonate (Sodium Bicarbonate Tab) 650 mg PO BID [facility] Last Admin: 05/20/18 09:36 Dose: 650 mg Tamsulosin HCl (Flomax) 0.4 mg PO DAILY [facility] Last Admin: 05/23/18 09:12 Dose: 0.4 mg Vitamin B Complex/Vit C/Folic Acid (Nephro-Tin) 1 tab PO 0800 [facility] Last Admin: 05/23/18 07:39 Dose: 1 tab - Labs Labs: 05/23/18 07:16 05/23/18 07:16 PT 12.3 SECONDS (9.7-12.2) H 05/19/18 13:23 INR 1.1 05/19/18 13:23 APTT 34 SECONDS (21-34) 05/19/18 13:23
--- NOTE | 2018-05-23 14:15 | PN ---
DATE: 05/23/2018 SUBJECTIVE: The patient denies any shortness of breath. PHYSICAL EXAMINATION: VITAL SIGNS: Most recent blood pressure 133/70, heart rate 65, temperature 97.6, respiration 20. HEENT: Normocephalic. CHEST: Clear. HEART: S1 and S2 regular. ABDOMEN: Soft. EXTREMITIES: No edema. LABORATORY DATA: Today's BUN and creatinine are 59 and 3.8 respectively. Potassium is within normal limit. Today's hemoglobin and hematocrit 12.8 and 38.1. White count 11, platelet count 169,000. ASSESSMENT: 1. Shortness of breath on admission. Consider exacerbation of chronic obstructive pulmonary disease. 2. Worsening renal insufficiency. 3. Hypertension. 4. Mild anemia. 5. Mild pulmonary hypertension. RECOMMENDATIONS: Continue hydralazine 50 mg t.i.d., Aricept 10 mg once a day, Augmentin 1 tablet twice a day, heparin 5000 units subcutaneous every 8 hours, Imdur 60 mg once a day, Lopressor 100 mg once a day, Protonix 40 mg intravenous once a day. Case was discussed with the medical team and . No invasive cardiac workup is justified. Ricci Rivera MD
--- NOTE | 2018-05-23 18:42 | CP.PCM.PN ---
Subjective - Date & Time of Evaluation Date of Evaluation: 05/23/18 Time of Evaluation: 11:35 - Subjective Subjective: Patient seen and examined at bedside. He states that he feels better today. Denies chest pain, nausea, vomiting. Afebrile with saturation of 96% on room air. Physical Exam Gen: AAOx3 Cardio: RRR, no murmur Pulm: Wheezing in left lower lobe Abd: Soft, non-distended? A/P Pleural Effusion 04/27 CKD r/o CHF - Echo 05/22 shows the left atrium is mildly dilated. Mild aortic regurgitation. Mild mitral regurgitation. Mild tricuspid regurgitation. Right ventricular systolic pressure estimated 40 mmHg. Mild pulmonary HTN. Aortic root is normal in size. No pericardial effusion. Left ventricle normal size. Ejection fraction 60-65%. Transmitral Doppler flow pattern is grade I-abnormal relaxation pattern. - Continue nebulizer? - Continue Breo Ellipta - CXR 05/20 shows small bilateral pleural effusion, no pulmonary infiltrate, cardiomegaly with coronary arterial calcification, cholelithiasis without evidence of cholecystitis, mild right renal atrophy, pancolonic diverticulosis without evidence of diverticulitis, severe multilevel degenerative disc disease with grade 1 retolisthesis at L3-4 Objective - Vital Signs/Intake and Output Vital Signs (last 24 hours): Temp Pulse Resp BP Pulse Ox 97.6 F 56 L 20 126/63 94 L 05/23/18 15:38 05/23/18 15:38 05/23/18 15:38 05/23/18 15:38 05/23/18 15:38 Intake and Output: 05/23/18 05/23/18 06:59 18:59 Intake Total 50 600 Output Total 800 Balance -750 600 - Medications Medications: Current Medications Acetaminophen (Tylenol 325mg Tab) 650 mg PO Q6 PRN PRN Reason: Pain, Mild (1-3) Albuterol/Ipratropium (Duoneb 3 Mg/0.5 Mg (3 Ml) Ud) 3 ml INH RQ6 PRN PRN Reason: Shortness of Breath Amoxicillin/Clavulanate Potassium (Augmentin 500 Mg-125 Mg Tab) 1 tab PO Q12H [facility]; Protocol Last Admin: 05/23/18 12:26 Dose: 1 tab Cyanocobalamin (Vitamin B12 1000 Mcg Tab) 1,000 mcg PO DAILY [facility] Last Admin: 05/23/18 11:45 Dose: 1,000 mcg Donepezil HCl (Aricept) 10 mg PO HS [facility] Last Admin: 05/22/18 21:14 Dose: 10 mg Fluticasone/Vilanterol (Breo Ellipta 100-25 Mcg Inh) 1 puff INH RQ12 [facility] Last Admin: 05/23/18 10:38 Dose: 1 puff Heparin Sodium (Porcine) (Heparin) 5,000 units SC Q8 [facility] Last Admin: 05/23/18 13:40 Dose: 5,000 units Hydralazine HCl (Apresoline) 50 mg PO TID [facility] Last Admin: 05/23/18 17:43 Dose: 50 mg Insulin Human Regular (Novolin R) 0 unit SC ACHS [facility] [place]; Protocol Last Admin: 05/23/18 17:20 Dose: Not Given Isosorbide Mononitrate (Imdur) 60 mg PO DAILY [facility] Lactobacillus Acidophilus (Lactobacillus) 1 cap PO BID [facility] Last Admin: 05/23/18 17:43 Dose: 1 cap Memantine (Namenda) 5 mg PO BID [facility] [place] Last Admin: 05/23/18 17:43 Dose: 5 mg Metoprolol Tartrate (Lopressor) 100 mg PO BID [facility] [place] Last Admin: 05/23/18 17:43 Dose: 100 mg Ondansetron HCl (Zofran Odt) 4 mg PO Q8H PRN PRN Reason: Nausea/Vomiting Pantoprazole Sodium (Protonix Inj) 40 mg IVP DAILY [facility] [place] Last Admin: 05/23/18 09:13 Dose: 40 mg Simethicone (Mylicon Chew Tab) 80 mg PO BID [facility] [place] Last Admin: 05/23/18 17:43 Dose: 80 mg Sitagliptin Phosphate (Januvia) 25 mg PO DAILY [facility] Last Admin: 05/23/18 09:14 Dose: 25 mg Sodium Bicarbonate (Sodium Bicarbonate Tab) 650 mg PO BID [facility] [place] Last Admin: 05/20/18 09:36 Dose: 650 mg Tamsulosin HCl (Flomax) 0.4 mg PO DAILY [facility] Last Admin: 05/23/18 09:12 Dose: 0.4 mg Vitamin B Complex/Vit C/Folic Acid (Nephro-Tin) 1 tab PO 0800 [facility] Last Admin: 05/23/18 07:39 Dose: 1 tab - Labs Labs: 05/23/18 07:16 05/23/18 07:16 PT 12.3 SECONDS (9.7-12.2) H 05/19/18 13:23 INR 1.1 05/19/18 13:23 APTT 34 SECONDS (21-34) 05/19/18 13:23
--- NOTE | 2018-05-23 21:31 | VASCLAB ---
Date of service: 05/21/2018 PROCEDURE: Lower Extremity Venous Duplex Exam. HISTORY: Lower extremity swelling PRIORS: None. TECHNIQUE: Bilateral common femoral, femoral, popliteal and posterior tibial, peroneal and great saphenous veins were evaluated. Flow was assessed with color Doppler, compressibility, assessment of phasic flow and augmentation response. Report prepared by MARIA M Osborn FINDINGS: RIGHT: 1. Common Femoral Vein: 1.1. Compressibility - Fully compressible: Thrombus - None : Flow - Phasic: Augmentation -Normal: Reflux - None. 2. Femoral Vein: 2.1. Compressibility - Fully compressible: Thrombus - None : Flow - Phasic: Augmentation -Normal: Reflux - None. 3. Popliteal Vein: 3.1. Compressibility - Fully compressible: Thrombus - None : Flow - Phasic: Augmentation -Normal: Reflux - None. 4. Posterior Tibial Vein: 4.1. Compressibility - Fully compressible: Thrombus - None: Flow - Phasic: Augmentation -Normal: Reflux - None. 5. Peroneal Vein: 5.1. Compressibility - Fully compressible: Thrombus - None: Flow - Phasic: Augmentation -Normal: Reflux - None. 6. Great Saphenous Vein: 6.1. Compressibility - Fully compressible: Thrombus - None: Flow - Phasic: Augmentation - Normal: Reflux - None. LEFT: 1. Common Femoral Vein: 1.1. Compressibility - Fully compressible: Thrombus - None: Flow - Phasic: Augmentation -Normal: Reflux - None. 2. Femoral Vein: 2.1. Compressibility - Fully compressible: Thrombus - None: Flow - Phasic: Augmentation -Normal: Reflux - None. 3. Popliteal Vein: 3.1. Compressibility - Fully compressible: Thrombus - None : Flow - Phasic: Augmentation -Normal: Reflux - None. 4. Posterior Tibial Vein: 4.1. Compressibility - Fully compressible: Thrombus - None: Flow - Phasic: Augmentation -Normal: Reflux - None. 5. Peroneal Vein: 5.1. Compressibility - Fully compressible: Thrombus - None: Flow - Phasic: Augmentation -Normal: Reflux - None. 6. Great Saphenous Vein: 6.1. Compressibility - Fully compressible: Thrombus - None: Flow - Phasic: Augmentation - Normal: Reflux - None. OTHER FINDINGS: Right: None significant. Left: None significant. IMPRESSION: Right: No evidence of deep or superficial vein thrombosis of the right lower extremity. Normal valve function noted of the right side. Left: No evidence of deep or superficial vein thrombosis of the left lower extremity. Normal valve function noted of the left side.
--- NOTE | 2018-05-24 07:15 | CP.PCM.PN ---
Objective - Vital Signs/Intake and Output Vital Signs (last 24 hours): Temp Pulse Resp BP Pulse Ox 97.9 F 78 20 129/64 96 05/23/18 23:26 05/23/18 23:26 05/23/18 23:26 05/23/18 23:26 05/23/18 23:26 - Medications Medications: Current Medications Acetaminophen (Tylenol 325mg Tab) 650 mg PO Q6 PRN PRN Reason: Pain, Mild (1-3) Albuterol/Ipratropium (Duoneb 3 Mg/0.5 Mg (3 Ml) Ud) 3 ml INH RQ6 PRN PRN Reason: Shortness of Breath Amoxicillin/Clavulanate Potassium (Augmentin 500 Mg-125 Mg Tab) 1 tab PO Q12H [facility]; Protocol Last Admin: 05/23/18 22:53 Dose: 1 tab Cyanocobalamin (Vitamin B12 1000 Mcg Tab) 1,000 mcg PO DAILY [facility] Last Admin: 05/23/18 11:45 Dose: 1,000 mcg Donepezil HCl (Aricept) 10 mg PO HS [facility] Last Admin: 05/23/18 21:24 Dose: 10 mg Fluticasone/Vilanterol (Breo Ellipta 100-25 Mcg Inh) 1 puff INH RQ12 [facility] Last Admin: 05/23/18 10:38 Dose: 1 puff Heparin Sodium (Porcine) (Heparin) 5,000 units SC Q8 [facility] Last Admin: 05/23/18 21:24 Dose: 5,000 units Hydralazine HCl (Apresoline) 50 mg PO TID [facility] Last Admin: 05/23/18 17:43 Dose: 50 mg Insulin Human Regular (Novolin R) 0 unit SC ACHS [facility]; Protocol Last Admin: 05/23/18 21:10 Dose: Not Given Isosorbide Mononitrate (Imdur) 60 mg PO DAILY [facility] Lactobacillus Acidophilus (Lactobacillus) 1 cap PO BID [facility] Last Admin: 05/23/18 17:43 Dose: 1 cap Memantine (Namenda) 5 mg PO BID [facility] Last Admin: 05/23/18 17:43 Dose: 5 mg Metoprolol Tartrate (Lopressor) 100 mg PO BID [facility] Last Admin: 05/23/18 17:43 Dose: 100 mg Ondansetron HCl (Zofran Odt) 4 mg PO Q8H PRN PRN Reason: Nausea/Vomiting Pantoprazole Sodium (Protonix Inj) 40 mg IVP DAILY [facility] Last Admin: 05/23/18 09:13 Dose: 40 mg Simethicone (Mylicon Chew Tab) 80 mg PO BID [facility] Last Admin: 05/23/18 17:43 Dose: 80 mg Sitagliptin Phosphate (Januvia) 25 mg PO DAILY [facility] Last Admin: 05/23/18 09:14 Dose: 25 mg Sodium Bicarbonate (Sodium Bicarbonate Tab) 650 mg PO BID [facility] Last Admin: 05/20/18 09:36 Dose: 650 mg Tamsulosin HCl (Flomax) 0.4 mg PO DAILY [facility] Last Admin: 05/23/18 09:12 Dose: 0.4 mg Vitamin B Complex/Vit C/Folic Acid (Nephro-Tin) 1 tab PO 0800 [facility] Last Admin: 05/23/18 07:39 Dose: 1 tab - Labs Labs: 05/23/18 07:16 05/23/18 07:16 PT 12.3 SECONDS (9.7-12.2) H 05/19/18 13:23 INR 1.1 05/19/18 13:23 APTT 34 SECONDS (21-34) 05/19/18 13:23
[2018-05-24] MEDS: (Novolin R) Insulin Human Regular 100 units/ml vial SC SCH ×2 (07:25→11:37)
[2018-05-24] MEDS: Multivitamin Vitamin B Complex (Nephro-Vite) Tab PO SCH (08:02)
[2018-05-24] MEDS: Fluticasone-Vilanterol 100/25mcg Diskus INH SCH (08:32)
[2018-05-24 08:53] VITALS: TEMP 98; O2SAT 95
[2018-05-24] MEDS: Simethicone 80 mg Chewtab PO SCH (09:19)
[2018-05-24] MEDS: Lactobacillus Acidophilus 500 MU Cap PO SCH (09:19)
[2018-05-24 09:20] VITALS: BP 154/71; PULSE 59
--- NOTE | 2018-05-24 11:02 | CP.PCM.PN ---
Subjective - Date & Time of Evaluation Date of Evaluation: 05/24/18 Time of Evaluation: 09:00 - Subjective Subjective: Patient seen an examined at bedside Patient is clinically improving He states he is feeling much better Patient is cleared for discharge from a pulmonary standpoint Afebrile Denies CP, nausea, vomiting, fever Physical exam General: AAOx3 Cardio: no murmurs, RRR Pulmonary: wheezing in left lower lobe Abdominal: soft, nondistended A/P Pleural effusion secondary to CKD rule out CHF -clear for discharge -echo 05/22/18: shows left atrium is mildly dilated. mild aortic regurgitation. Mild mitral regurgitation. Mild tricuspid regurgitation. Right ventricular systolic preseeure estimated 40mmHg. Mild pulmonary HTN, Aortic root is normal in size. No pericardial effusion. Left ventricle normal size. Ejection fraction 60-65%. Transmitral doppler flow pattern is grade 1- abnormal relaxation pattern. -chest xray 05/19/18: no active disease -chest ct 05/20/18: small bilateral pleural effusion, no pulmonary infiltrate, cardiomegaly with coronary arterial calcification, cholelithiasis without evidence of cholecystitis, mild right renal atrophy, pancolonic diverticulosis without evidence of diverticulitis, severe multilevel degenerative disc disease with grade 1 retrolisthesis at L3-4 Objective - Vital Signs/Intake and Output Vital Signs (last 24 hours): Temp Pulse Resp BP Pulse Ox 98.0 F 59 L 20 154/71 H 95 05/24/18 07:00 05/24/18 09:20 05/24/18 09:20 05/24/18 09:20 05/24/18 09:20 - Medications Medications: Current Medications Acetaminophen (Tylenol 325mg Tab) 650 mg PO Q6 PRN PRN Reason: Pain, Mild (1-3) Albuterol/Ipratropium (Duoneb 3 Mg/0.5 Mg (3 Ml) Ud) 3 ml INH RQ6 PRN PRN Reason: Shortness of Breath Amoxicillin/Clavulanate Potassium (Augmentin 500 Mg-125 Mg Tab) 1 tab PO Q12H [facility]; Protocol Last Admin: 05/23/18 22:53 Dose: 1 tab Cyanocobalamin (Vitamin B12 1000 Mcg Tab) 1,000 mcg PO DAILY [facility] Last Admin: 05/24/18 09:18 Dose: 1,000 mcg Donepezil HCl (Aricept) 10 mg PO HS [facility] Last Admin: 05/23/18 21:24 Dose: 10 mg Fluticasone/Vilanterol (Breo Ellipta 100-25 Mcg Inh) 1 puff INH RQ12 [facility] Last Admin: 05/24/18 08:32 Dose: 1 puff Heparin Sodium (Porcine) (Heparin) 5,000 units SC Q8 [facility] Last Admin: 05/23/18 21:24 Dose: 5,000 units Hydralazine HCl (Apresoline) 50 mg PO TID [facility] Last Admin: 05/24/18 09:19 Dose: 50 mg Insulin Human Regular (Novolin R) 0 unit SC ACHS [facility]; Protocol Last Admin: 05/24/18 07:25 Dose: Not Given Isosorbide Mononitrate (Imdur) 60 mg PO DAILY [facility] Last Admin: 05/24/18 09:19 Dose: 60 mg Lactobacillus Acidophilus (Lactobacillus) 1 cap PO BID [facility] Last Admin: 05/24/18 09:19 Dose: 1 cap Memantine (Namenda) 5 mg PO BID [facility] Last Admin: 05/24/18 09:18 Dose: 5 mg Metoprolol Tartrate (Lopressor) 100 mg PO BID [facility] Last Admin: 05/24/18 09:20 Dose: 100 mg Ondansetron HCl (Zofran Odt) 4 mg PO Q8H PRN PRN Reason: Nausea/Vomiting Pantoprazole Sodium (Protonix Inj) 40 mg IVP DAILY [facility] Last Admin: 05/24/18 09:18 Dose: 40 mg Simethicone (Mylicon Chew Tab) 80 mg PO BID [facility] Last Admin: 05/24/18 09:19 Dose: 80 mg Sitagliptin Phosphate (Januvia) 25 mg PO DAILY [facility] Last Admin: 05/23/18 09:14 Dose: 25 mg Sodium Bicarbonate (Sodium Bicarbonate Tab) 650 mg PO BID [facility] Last Admin: 05/20/18 09:36 Dose: 650 mg Tamsulosin HCl (Flomax) 0.4 mg PO DAILY [facility] Last Admin: 05/24/18 09:18 Dose: 0.4 mg Vitamin B Complex/Vit C/Folic Acid (Nephro-Tin) 1 tab PO 0800 [facility] Last Admin: 05/24/18 08:02 Dose: 1 tab - Labs Labs: 05/23/18 07:16 05/23/18 07:16 PT 12.3 SECONDS (9.7-12.2) H 05/19/18 13:23 INR 1.1 05/19/18 13:23 APTT 34 SECONDS (21-34) 05/19/18 13:23
[2018-05-24] MEDS: Amoxicillin-Clav 500-125 mg Tab PO SCH (11:42)
[2018-05-24 12:24] LABS: BASO # 0.1 K/uL (0.0-0.2); BASO % 0.5 % (0.0-2.0); EOS # 2.1 K/uL (0.0-0.7); EOS % 20.6 % (0.0-4.0); HEMOGLOBIN 12.7 g/dL (12.0-18.0); LYMPH % 19.4 % (20.0-40.0); MEAN CELL VOLUME 100.2 fL (80.0-94.0); MEAN CORPUSCULAR HEMOGLOBIN 33.2 pg (27.0-31.0); MEAN CORPUSCULAR HGB CONC 33.2 g/dL (33.0-37.0); MEAN PLATELET VOLUME 9.9 fL (7.2-11.7); MONO # 0.6 K/uL (0.0-0.8); MONO % 6.3 % (0.0-10.0); NEUT # 5.5 K/uL (1.8-7.0); NEUT % 53.2 % (50.0-75.0); NRBC % 0.1 % (0.0-2.0); PLATELET COUNT 188 K/uL (130-400); RBC 3.84 Mil/uL (4.40-5.90); RED CELL DISTRIBUTION WIDTH 14.2 % (11.5-14.5); WHITE BLOOD COUNT 10.3 K/uL (4.8-10.8)
[2018-05-24 12:47] LABS: EOSINOPHIL 24 % (0-4); LYMPHOCYTE 23 % (20-40); MONOCYTE 5 % (0-10); NEUTROPHIL 48 % (50-75); PLATELET ESTIMATE NORMAL (NORMAL); TOTAL CELLS COUNTED 100
[2018-05-24 12:52] LABS: ALB/GLOB RATIO 1.4 (1.0-2.1); ALBUMIN 4.6 g/dL (3.5-5.0); CALCIUM 8.6 mg/dl (8.6-10.4)
--- NOTE | 2018-05-24 14:37 | CP.PCM.PN ---
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 Hypertension control with meds as ordered. Patient not on ACEI/ARB as due to advanced CKD and CHESTER. increase lopressor 100 bid. Increased imdur 60 mg/d continue with flomax 0.4 mg/day pt on lasix, change to q2 day on d/c added nephrovite [address] abdomen reviewed, has known Rt renal atrophy. added b12 supplements as well check urine eosinophils Dose meds/antibiotics for reduced GFR. Avoid fleets enema/magnesium based laxatives. Avoid nephrotoxins/NSAIDs/ iodinated contrast (unless needed emergently) Glycemic control Further work up/management as per primary team serum cr stable although higher than baseline. ok for d/c from renal perspective with 1 week outpt follow up Thanks for allowing me to participate in care of your patient. Will follow patient with you. Please call if any Qs. had d/w team Dr Yuan Platt Office: [phone] ROS: Cardiovascular: No chest pain. Pulmonary: No shortness of breath Gastrointestinal: denies abdominal pain No nausea. No vomiting. Genitourinary: No pain while urinating. Denies blood in urine. pt with dementia, ROS overall limited Rest all other negative except as mentioned in HPI Physical Examination: General Appearance: Comfortable, in no acute respiratory distress, co-operative . Vitals reviewed and noted as below Head; Atraumatic, normocephalic ENT: no ulcers no thrush. Tongue is midline. Oropharynx: no rash or ulcers. EYES: Pupils are equal, round and reactive to light accommodation. Eye muscles and extraocular movement intact. Sclera is anicteric. Neck; supple no lymphadenopathy, no thyromegaly or bruit Lungs: Normal respiratory rate/effort. Breath sounds bilateral equal. clear Heart: Normal rate. s1s2 normal. No rub or gallop. Extremities: no edema. No varicose veins Neurological: Patient is alert, awake and demented. No focal deficit. Strength bilateral appropriate and equal Skin: Warm and dry. Normal turgor. No rash. Palpitation: Normal elasticity for age Abdomen: Abdomen is soft. Bowel sounds +. There is no abdominal tenderness, no guarding/rigidity or organomegaly Psych: lack insight and has normal affect/mood MSK: no joint tenderness or swelling. Digits and nails normal, no deformity : kidney or bladder not palpable Labs/imaging reviewed. Past medical history, past surgical history, family history, social history, allergy reviewed and noted as below Family Hx: no hx of CKD. Non contributory vit D 45 Phos 4.1 Objective - Vital Signs/Intake and Output Vital Signs (last 24 hours): Temp Pulse Resp BP Pulse Ox 98.0 F 59 L 20 154/71 H 95 05/24/18 07:00 05/24/18 09:20 05/24/18 09:20 05/24/18 09:20 05/24/18 09:20 - Medications Medications: Current Medications Acetaminophen (Tylenol 325mg Tab) 650 mg PO Q6 PRN PRN Reason: Pain, Mild (1-3) Albuterol/Ipratropium (Duoneb 3 Mg/0.5 Mg (3 Ml) Ud) 3 ml INH RQ6 PRN PRN Reason: Shortness of Breath Amoxicillin/Clavulanate Potassium (Augmentin 500 Mg-125 Mg Tab) 1 tab PO Q12H [facility]; Protocol Last Admin: 05/24/18 11:42 Dose: 1 tab Cyanocobalamin (Vitamin B12 1000 Mcg Tab) 1,000 mcg PO DAILY [facility] Last Admin: 05/24/18 09:18 Dose: 1,000 mcg Donepezil HCl (Aricept) 10 mg PO HS [facility] Last Admin: 05/23/18 21:24 Dose: 10 mg Fluticasone/Vilanterol (Breo Ellipta 100-25 Mcg Inh) 1 puff INH RQ12 [facility] Last Admin: 05/24/18 08:32 Dose: 1 puff Heparin Sodium (Porcine) (Heparin) 5,000 units SC Q8 [facility] Last Admin: 05/24/18 13:35 Dose: 5,000 units Hydralazine HCl (Apresoline) 50 mg PO TID [facility] Last Admin: 05/24/18 13:35 Dose: 50 mg Insulin Human Regular (Novolin R) 0 unit SC [facility]; Protocol Last Admin: 05/24/18 11:37 Dose: Not Given Isosorbide Mononitrate (Imdur) 60 mg PO DAILY [facility] Last Admin: 05/24/18 09:19 Dose: 60 mg Lactobacillus Acidophilus (Lactobacillus) 1 cap PO BID [facility] Last Admin: 05/24/18 09:19 Dose: 1 cap Memantine (Namenda) 5 mg PO BID [facility] Last Admin: 05/24/18 09:18 Dose: 5 mg Metoprolol Tartrate (Lopressor) 100 mg PO BID [facility] Last Admin: 05/24/18 09:20 Dose: 100 mg Ondansetron HCl (Zofran Odt) 4 mg PO Q8H PRN PRN Reason: Nausea/Vomiting Pantoprazole Sodium (Protonix Inj) 40 mg IVP DAILY [facility] Last Admin: 05/24/18 09:18 Dose: 40 mg Simethicone (Mylicon Chew Tab) 80 mg PO BID [facility] Last Admin: 05/24/18 09:19 Dose: 80 mg Sitagliptin Phosphate (Januvia) 25 mg PO DAILY [facility] Last Admin: 05/23/18 09:14 Dose: 25 mg Sodium Bicarbonate (Sodium Bicarbonate Tab) 650 mg PO BID [facility] Last Admin: 05/20/18 09:36 Dose: 650 mg Tamsulosin HCl (Flomax) 0.4 mg PO DAILY [facility] Last Admin: 05/24/18 09:18 Dose: 0.4 mg Vitamin B Complex/Vit C/Folic Acid (Nephro-Tin) 1 tab PO 0800 [facility] Last Admin: 05/24/18 08:02 Dose: 1 tab - Labs Labs: 05/24/18 12:14 05/24/18 12:14 PT 12.3 SECONDS (9.7-12.2) H 05/19/18 13:23 INR 1.1 05/19/18 13:23 APTT 34 SECONDS (21-34) 05/19/18 13:23
--- NOTE | 2018-05-24 18:19 | PN ---
DATE: 05/24/2018 SUBJECTIVE: The patient was interviewed and examined while the daughter at the bedside. The patient denies any shortness of breath or chest pain. PHYSICAL EXAMINATION: VITAL SIGNS: Blood pressure 154/71, heart rate 59, temperature 98, respirations 20. HEENT: Normocephalic. CHEST: Clear. HEART: S1 and S2 regular. ABDOMEN: Soft. EXTREMITIES: No edema. LABORATORY DATA: Today's BUN and creatinine are 58 and 4 respectively. Today's hemoglobin, hematocrit, white count and platelet count are within normal limits. ASSESSMENT: 1. Exacerbation of chronic obstructive lung disease. 2. Worsening renal insufficiency. 3. Hypertension. 4. Mild pulmonary hypertension. RECOMMENDATIONS: Case was discussed with . The patient can be maintained on hydralazine 50 mg t.i.d., Flomax 0.4 mg once a day, Augmentin 1 tablet every 12 hours, Imdur 60 mg daily, Lopressor 100 mg twice a day, Protonix at 40 mg intravenous once a day. The patient can also be discharged from the cardiac point of view. Ricci Rivera MD
--- NOTE | 2018-05-24 22:52 | CP.PCM.DIS ---
Provider - Provider Date of Admission: 05/22/18 19:56 Attending physician: Maya Back DO Consults: 05/19/18 18:00 Pulmonology Consult Routine Comment: Consulting Provider: Thai Sanches Consulting Physician: Thai Sanches Reason for Consult: sob/ ?fibrosis 05/19/18 18:08 Nephrology Consult Routine Comment: Consulting Provider: Yuan Platt Consulting Physician: Yuan Platt Reason for Consult: ckd stage 4 05/21/18 09:52 Cardiology Consult Routine Comment: Consulting Provider: Ricci Rivera Consulting Physician: Ricci Rivera Reason for Consult: possible chf, pleural effusion Time Spent in preparation of Discharge (in minutes): 180 Diagnosis - Discharge Diagnosis (1) SOB (shortness of breath) Status: Acute (2) CHESTER (acute kidney injury) Status: Acute (3) Diverticulitis Status: Acute (4) Hypertension Status: Acute (5) Chronic kidney disease, stage IV (severe) Status: Acute (6) Pleural effusion Status: Acute (7) History of hypothyroidism Status: Chronic (8) Hx of diabetes mellitus Status: Chronic Hospital Course - Lab Results Lab Results: Micro Results 05/21/18 12:36 Blood-Venous Blood Culture - Preliminary NO GROWTH AFTER 3 DAYS 05/21/18 11:33 Blood-Venous Blood Culture - Preliminary NO GROWTH AFTER 3 DAYS 05/21/18 09:25 Stool Stool Culture - Final NO SALMONELLA, SHIGELLA OR CAMPYLOBACTER ISOLATED. 05/21/18 14:20 Urine,Clean Catch Urine Culture - Final No Growth (<1,000 CFU/ML) 05/21/18 09:25 Stool Ova and Parasite Concentrate Exam - Final Most Recent Lab Values WBC 10.3 K/uL (4.8-10.8) 05/24/18 12:14 RBC 3.84 Mil/uL (4.40-5.90) L 05/24/18 12:14 Hgb 12.7 g/dL (12.0-18.0) 05/24/18 12:14 Hct 38.5 % (35.0-51.0) 05/24/18 12:14 MCV 100.2 fL (80.0-94.0) H 05/24/18 12:14 MCH 33.2 pg (27.0-31.0) H 05/24/18 12:14 MCHC 33.2 g/dL (33.0-37.0) 05/24/18 12:14 RDW 14.2 % (11.5-14.5) 05/24/18 12:14 Plt Count 188 K/uL (130-400) 05/24/18 12:14 MPV 9.9 fL (7.2-11.7) 05/24/18 12:14 Neut % (Auto) 53.2 % (50.0-75.0) 05/24/18 12:14 Lymph % (Auto) 19.4 % (20.0-40.0) L 05/24/18 12:14 Garrard % (Auto) 6.3 % (0.0-10.0) 05/24/18 12:14 Eos % (Auto) 20.6 % (0.0-4.0) H 05/24/18 12:14 Baso % (Auto) 0.5 % (0.0-2.0) 05/24/18 12:14 Neut # (Auto) 5.5 K/uL (1.8-7.0) 05/24/18 12:14 Lymph # (Auto) 2.0 K/uL (1.0-4.3) 05/24/18 12:14 Garrard # (Auto) 0.6 K/uL (0.0-0.8) 05/24/18 12:14 Eos # (Auto) 2.1 K/uL (0.0-0.7) H 05/24/18 12:14 Baso # (Auto) 0.1 K/uL (0.0-0.2) 05/24/18 12:14 Neutrophils % (Manual) 48 % (50-75) L 05/24/18 12:14 Band Neutrophils % 1 % (0-2) 05/20/18 08:27 Lymphocytes % (Manual) 23 % (20-40) 05/24/18 12:14 Monocytes % (Manual) 5 % (0-10) 05/24/18 12:14 Eosinophils % (Manual) 24 % (0-4) H 05/24/18 12:14 Basophils % (Manual) 2 % (0-2) 05/23/18 07:16 Differential Comment 05/19/18 13:23 Platelet Estimate Normal (NORMAL) 05/24/18 12:14 Large Platelets Present 05/20/18 08:27 RBC Morphology Normal 05/24/18 12:14 Hypochromasia (manual) Slight 05/23/18 07:16 Poikilocytosis (manual Slight 05/23/18 07:16 Anisocytosis (manual) Slight 05/23/18 07:16 PT 12.3 SECONDS (9.7-12.2) H 05/19/18 13:23 INR 1.1 05/19/18 13:23 APTT 34 SECONDS (21-34) 05/19/18 13:23 Sodium 132 mmol/L (132-148) 05/24/18 12:14 Potassium 3.9 mmol/L (3.6-5.2) 05/24/18 12:14 Chloride 91 mmol/L (98-107) L 05/24/18 12:14 Carbon Dioxide 30 mmol/L (22-30) 05/24/18 12:14 Anion Gap 16 (10-20) 05/24/18 12:14 BUN 58 mg/dL (9-20) H 05/24/18 12:14 Creatinine 4.0 mg/dL (0.8-1.5) H 05/24/18 12:14 Est GFR ( Amer) 17 05/24/18 12:14 Est GFR (Non-Af Amer) 14 05/24/18 12:14 POC Glucose (mg/dL) 132 mg/dL (65-110) H 05/24/18 17:24 Random Glucose 94 mg/dL (75-110) 05/24/18 12:14 Hemoglobin A1c 5.7 % (4.2-6.5) 05/19/18 20:54 Calcium 8.6 mg/dl (8.6-10.4) 05/24/18 12:14 Phosphorus 3.4 mg/dL (2.5-4.5) 05/24/18 12:14 Magnesium 2.0 mg/dL (1.6-2.3) 05/24/18 12:14 Total Bilirubin 0.8 mg/dL (0.2-1.3) 05/24/18 12:14 AST 22 U/L (17-59) 05/24/18 12:14 ALT 19 U/L (21-72) L 05/24/18 12:14 Alkaline Phosphatase 101 U/L (38-126) 05/24/18 12:14 Troponin I < 0.0120 ng/mL (0.00-0.120) 05/20/18 01:51 NT-Pro-B Natriuret Pep 1800 pg/mL (0-900) H 05/23/18 07:16 Total Protein 7.9 g/dL (6.3-8.3) 05/24/18 12:14 Albumin 4.6 g/dL (3.5-5.0) 05/24/18 12:14 Globulin 3.3 gm/dL (2.2-3.9) 05/24/18 12:14 Albumin/Globulin Ratio 1.4 (1.0-2.1) 05/24/18 12:14 Vitamin B12 182 pg/mL (239-931) L 05/21/18 13:45 25-OH Vitamin D Total 44.9 NG/ML (30.0-100.0) 05/19/18 20:54 Folate 9.8 ng/mL 05/21/18 13:45 Procalcitonin < 0.05 NG/ML (0.19-0.49) L 05/21/18 13:45 Free T4 1.52 ng/dL (0.78-2.19) 05/19/18 20:54 TSH 3rd Generation 4.05 mIU/L (0.46-4.68) 05/19/18 20:54 PTH Intact Whole Molec 101 pg/mL (14-64) H 05/20/18 10:00 Urine Color Yellow (YELLOW) 05/19/18 14:18 Urine Clarity Clear (Clear) 05/19/18 14:18 Urine pH 6.0 (5.0-8.0) 05/19/18 14:18 Ur Specific [place] 1.009 (1.003-1.030) 05/19/18 14:18 Urine Protein 1+ mg/dL (NEGATIVE) H 05/19/18 14:18 Urine Glucose (UA) Normal mg/dL (Normal) 05/19/18 14:18 Urine Ketones Negative mg/dL (NEGATIVE) 05/19/18 14:18 Urine Blood Negative (NEGATIVE) 05/19/18 14:18 Urine Nitrate Negative (NEGATIVE) 05/19/18 14:18 Urine Bilirubin Negative (NEGATIVE) 05/19/18 14:18 Urine Urobilinogen Normal mg/dL (0.2-1.0) 05/19/18 14:18 Ur Leukocyte Esterase Neg Maxi/uL (Negative) 05/19/18 14:18 Urine WBC (Auto) < 1 /hpf (0-5) 05/19/18 14:18 Ur Random Creatinine 33.1 mg/dL 05/20/18 12:21 U Random Total Protein 17.0 mg/dL (0.0-12.0) H 05/20/18 12:21 Stool Occult Blood Negative (NEGATIVE) 05/21/18 09:25 - Hospital Course Hospital Course: On admission: 82 year old male with a past medical history of hypertension, dementia, diabetes, and ?ckd who presents to the hospital complaining of shortness of breath for the past week. Patient states he gets winded when walking down the street. Patient also reports difficulty walking in conjunction with the shortness of breath. Patient states he only has difficulty breathing upon activity. Patient also report some lower extremity swelling for the past week since stopping his medication (?water pill) last week. Patient denies shortness of breath at rest. Patient denies any chest pain, fevers, chills, dizziness, or any other complaints. Patient also reports epigastric tenderness for the past week. Patient describes it as a gnawing pain. Patient also reports abdominal growth over the past week. Patient denies any pain in association with the abdominal swelling. Patient also reports four episodes of non-bloody diarrhea that occurred today. Patient denies any fevers, chills, recent travel, recent antibiotic usage, syncopal episodes, dizziness, headaches, or any other complaints. On hospitalization: Patient admitted for shortness of breath and abdominal pain with diarrhea, chest Xray shows no active disease, CT abd/pelvis w/o contrast shows small bilateral pleural effusion with no pulm infiltrate, cardiomegaly, pancolonic diverticulitis. CT abdomen and pelv with PO contrast shows small to medium size, right sided effusion, and tiny left sided effusion minor bibasilar atelectasis, Right renal atrophy, and early signs of diverticulitis. Echo shows the left atrium is mildly dilated. Mild aortic regurgitation. Mild mitral regurgitation. Mild tricuspid regurgitation. Right ventricular systolic pressure estimated 40 mmHg. Mild pulmonary HTN. Aortic root is normal in size. No pericardial effusion. Left ventricle normal size. Ejection fraction 60-65%. Transmitral Doppler flow pattern is grade I-abnormal relaxation pattern. Lasix to help with diuresis given. Breo Ellipta and duoneb. Elevated ProBNP noted at time of admission. Stool, blood, urine and ova and parasite negative were all negative. Empiric Zosyn started for diverticulitis. Patient had elevated, uncontrolled blood pressure, given hydralazine, lopressor and lasix. Nephrology (Dr Platt), Pulmonology (dr Sanches) and Cardiology (Dr Rivear) consulted. Patient demonstrated improvement of shortness of breath with and abdominal discomfort with treatment, blood pressure observed to be controlled. On discharge: Patient given the following instruction upon discharge: Patient is medically stable for discharge. Per cardio, pulm and nephrology, stable from standpoint. Per nephrology, please follow up in one week for repeat blood work to monitor kidney function. Please take water pill (Lasix) every other day, starting tomorrow. please take augmentin starting tomorrow one tab in the am and one tab in the evening, to complete treatment for diverticulitis. need to follow up with your PMD for GI referral, for colonoscopy, patient will need to be on fluid restriction, 1.5 L daily. Please follow up with Dr Minaya within one week. Patient is being given new blood pressure medication, please keep old medication aside in medicine cabinet. If patient symptoms worsen or recur, please to return to ER for immediate evaluation. This s a brief summary of patient's hospitalization. For more information, please refer to EMR. - Date & Time of H&P Date of H&P: 05/19/18 Time of H&P: 16:40 Discharge Exam - Head Exam Head Exam: ATRAUMATIC, NORMAL INSPECTION - Eye Exam Eye Exam: EOMI, Normal appearance - ENT Exam ENT Exam: Mucous Membranes Moist, Normal Exam - Neck Exam Neck exam: Normal Inspection - Respiratory Exam Respiratory Exam: Clear to PA & Lateral, NORMAL BREATHING PATTERN. absent: Ral es, Rhonchi, Wheezes - Cardiovascular Exam Cardiovascular Exam: REGULAR RHYTHM, +S1, +S2 - GI/Abdominal Exam GI & Abdominal Exam: Normal Bowel Sounds, Soft, Unremarkable. absent: Tenderness - Extremities Exam Extremities exam: full ROM, normal inspection - Neurological Exam Neurological exam: Alert, CN II-XII Intact, Oriented x3 - Psychiatric Exam Psychiatric exam: Normal Affect, Normal Mood - Skin Skin Exam: Dry, Intact, Normal Color, Warm Discharge Plan - Discharge Medications Prescriptions: Albuterol HFA [Ventolin HFA 90 mcg/actuation (8 g)] 1 puff IH Q6H PRN #1 inhaler PRN Reason: Shortness Of Breath Amoxicillin/Clavulanate [Augmentin 500 MG-125 MG Tab] 1 tab PO Q12H 4 Days tab Cyanocobalamin [Vitamin B12 1000 mcg Tab] 1,000 mcg PO DAILY #30 tab Donepezil [Aricept] 10 mg PO HS #30 tab Fluticasone/Salmeterol 250/50 [Advair Diskus 250/50] 1 puff INH RQ12 #1 puff Furosemide [Lasix] 20 mg PO Q2D 14 Days tab hydrALAZINE [Apresoline] 90 mg PO TID #90 tab Isosorbide Mononitrate [Imdur] 60 mg PO DAILY #30 tab Lactobacillus Acidophilus [Lactobacillus] 1 cap PO BID 34 Days cap Memantine [Namenda] 5 mg PO BID #60 tab Metoprolol Tartrate [Lopressor] 100 mg PO BID #60 tab Tamsulosin [Flomax] 0.4 mg PO DAILY #30 cap Vitamin B Complex/Vit C/Folic [Nephro-Tin] 1 tab PO 0800 #30 tab - Follow Up Plan Condition: STABLE Disposition: HOME/ ROUTINE Instructions: Heart Healthy Diet, Heart Failure, Adult (DC), Kidney Disease Diet (For People Not on Dialysis), Chronic Kidney Disease (DC) Additional Instructions: Patient is medically stable for discharge. Per cardio, pulm and nephrology, stable from standpoint. Per nephrology, please follow up in one week for repeat blood work to monitor kidney function. Please take water pill (Lasix) every other day, starting tomorrow. please take augmentin starting tomorrow one tab in the am and one tab in the evening, to complete treatment for diverticulitis. need to follow up with your PMD for GI referral, for colonoscopy, patient will need to be on fluid restriction, 1.5 L daily. Please follow up with Dr Silvestre within one week. Patient is being given new blood pressure medication, please keep old medication aside in medicine cabinet. If patient symptoms worsen or recur, please to return to ER for immediate evaluation. El paciente est mdicamente estable para el anuja. Por cardio, pulmn y nefrologa, estable desde el punto de vista. Por nefrologa, katarina un seguimiento en viktor semana para repetir el anlisis de teena para controlar la funcin renal. Por favor, tome la pldora de agua (Lasix) cada dos david, a partir de maana. por favor tome Augmentin a partir de maana viktor pestaa en la maana y viktor en la noche para completar el tratamiento de la diverticulitis. debe seguir con jones PMD para derivacin GI, para la colonoscopia, el paciente deber estar en restriccin de lquidos, 1.5 L diariamente. Por favor katarina un seguimiento con el Dr. Silvestre dentro de viktor semana. Al paciente se le est administrando un nuevo medicamento para la presin arterial, por favor, mantenga el medicamento marco en un botiqun. Si los sntomas del paciente empeoran o reaparecen, vuelva a la sotero de emergencias para viktor evaluacin inmediata.
--- NOTE | 2018-05-26 09:01 | PQF ---
PROVIDER RESPONSE TEXT: Please note that at the time of admission, it was noted in the History and Physical Assessment and Pl an that the patient had questionable history of Heart Failure as documented by other health care prov iders upon prior admission. However, performance of Echocardiogram during this admission did not eddy luciano and Heart Failure. Ramiro Avila D.O. REVIEWER QUERY TEXT: CHF Acuity and Type Congestive Heart Failure is documented in the Medical Record. Please document the type and acuity (in cludes probable or suspected) Such as: Type: -- Systolic -- Diastolic -- Combined -- Other, please specify Acuity: -- Acute -- Chronic -- Acute on chronic -- Other, please specify Also please document the underlying cause of the CHF (includes probable or suspected) The patient's Clinical Indicators include: "82 year old male with history of CHF, HTN, DM, CKD, and Dementia presents to ED for evaluation of SOB for 1 week.Patient's daughter states that her father has been complaining of SOB at rest and feel ing tired.Patient is also complaining of epigastric pain for 1 week. Clinical Impression: Congestive heart failure, SOB (shortness of breath) Echo 05/22: The Ejection Fraction is 60-65%. CT Chest:Small bilateral pleural effusion.No pulmonary infiltrate. Cardiomegaly with coronary arterial calcification. Tx: Lasix 20 mg PO OD, Augmetin 500 mg-125 mg tab PO Q 12 h, Apresoline 50 mg PO TID, Imdur PO OD, Lo pressor 100 mg PO BID. Query created by: Betsy Acosta on 05/24/2018 1:40 PM Electronically signed by: Ramiro Goldberg MD 05/26/2018 8:57 AM
== END 2018-05-24 18:20 | disposition home or self-care (01) | DRG 292 ==
LOC: C.ER 12:36 → C.6T 16:14 → OBSVTOIN 05-22 19:56
PROVIDERS: ADMIT Hospitalist; ATTEND Hospitalist
DX: I13.0 Hypertensive heart and chronic kidney disease with heart failure and stage 1 through stage 4 chronic kidney disease, or unspecified chronic kidney disease (principal); J44.1 Chronic obstructive pulmonary disease with (acute) exacerbation; K57.32 Diverticulitis of large intestine without perforation or abscess without bleeding; N17.9 Acute kidney failure, unspecified; N18.4 Chronic kidney disease, stage 4 (severe); F17.200 Nicotine dependence, unspecified, uncomplicated; F03.90 Unspecified dementia, unspecified severity, without behavioral disturbance, psychotic disturbance, mood disturbance, and anxiety; I50.9 Heart failure, unspecified; I27.20 Pulmonary hypertension, unspecified; E11.22 Type 2 diabetes mellitus with diabetic chronic kidney disease; E11.21 Type 2 diabetes mellitus with diabetic nephropathy; N40.0 Benign prostatic hyperplasia without lower urinary tract symptoms; Z79.84 Long term (current) use of oral hypoglycemic drugs; Z79.890 Hormone replacement therapy; Z91.14 Patient's other noncompliance with medication regimen; E03.9 Hypothyroidism, unspecified; D72.1 Eosinophilia; D53.9 Nutritional anemia, unspecified